=== PATIENT | male | born 1950 | race Caucasian/White ===

== ENCOUNTER → 2016-10-03 | Outpatient (CLI) | payer OTHER, MEDICARE ==
--- NOTE | 2016-12-23 10:23 | BTN ---
SERVICE DATE: PATIENT #: [id number] #: NOT DICTATED IDENTIFICATION: Madan is a 66-year-old male, who is here for followup. I last saw him 3 months ago. CURRENT MEDICATIONS: Fluoxetine 40 mg a day, clonazepam 0.5 to 1 mg at bedtime. He also takes Lyrica 150 mg b.i.d. ALLERGIES: He has allergies to morphine. CHIEF COMPLAINT: "I think I am having a little bit more going on in my brain." HISTORY OF PRESENT ILLNESS: Three months ago when I saw Madan, he was doing pretty well on the fluoxetine. He does have obsessive-compulsive disorder and he states when he gets on a loop in his brain, he cannot seem to get off and he said that was working pretty well. However, more recently, he has had more trouble with not being able to get off the loop. Other than that his mood is pretty good. His PHQ-9 score is 5. TANYA-7 score is 4. He is sleeping okay. 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 No suicidal or homicidal ideation. He does have several medical problems, so a lot of cardiac problems in his life and he has done well recently with gaining some weight and getting a little bit healthier. REVIEW OF SYSTEMS: He has significant cardiac problems. He has had a myocardial infarction. He has elevated lipids, hypertension. He also had an episode of, I believe it was a major infection he had several years ago that caused him to lose part of his feet. PHYSICAL EXAMINATION: VITAL SIGNS: Blood pressure is a little elevated today 157/91, heart rate 51, respirations 16, temperature is 97.7, weight is 154 pounds, and that is up 10 pounds in the last 3 months. He says he is eating much better. Height is 70 inches. GENERAL APPEARANCE: Madan looks good today. He is well groomed. Appears his stated age. Gait and station are fairly steady with the use of a cane. Speech is clear and appropriate, coherent. Thought processes are logical and linear. I do not see any pressured speech or tangential speech. I do not see any delusions and he denies any hallucinations. Mood and affect, mood is a little bit anxious and his affect is pleasant. Insight and judgment are good. MENTAL STATUS EXAM: He is alert and oriented x3. Recent and remote memory appear intact. Attention span is good. Language good. Fund of knowledge, adequate for his developmental age. DIAGNOSES: Fostoria I: Obsessive-compulsive disorder, F42.9. Depression, F32.9. Fostoria II: No diagnosis. Fostoria III: He has some cardiac issues and that is his main medical issues. Fostoria IV: Current stressors. 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 Fostoria V: Current Global Assessment of Functioning score 69. TREATMENT PLAN: In reviewing his medications, he has ways that he can go up on the fluoxetine, so I am going to raise it up to 60 mg a day, possibly can even go up as high as 80 mg a day. We will take all the miles out of it that we can and then when there is no miles left in it, we will go to something different, but so far he has gotten some good benefit from the Prozac and will continue on with it until we have used it up. I am going to see him back in about another three months. /[id number]
== END ==
LOC: MW.CHFP 08:15
PROVIDERS: ATTEND Student in an Organized Health Care Education/Training Program
DX: D64.9 Anemia, unspecified (principal); I10 Essential (primary) hypertension
CPT/HCPCS: 36415; 80053; 80061; 85025

== ENCOUNTER 2017-01-29 14:06 | Emergency (ER) | payer OTHER, MEDICARE ==
[2017-01-29] MEDS ORDERED: Lidocaine 1% 20 ML MDV INJECT ONE (14:46)
[2017-01-29] MEDS ORDERED: Bacitracin Oint 1 GM U/D Packet TOP ONE (15:22)
[2017-01-29] MEDS ORDERED: Diphtheria,Pertussis(Acell),Tetanus Vaccine 0.5 ML Syringe IM ONE (15:24)
--- NOTE | 2017-01-29 15:29 | EDM.PDOC ---
ED HPI GENERAL MEDICAL PROBLEM - General Chief Complaint: Laceration Stated Complaint: FELL Time Seen by Provider: 01/29/17 14:43 Source of Information: Reports: Patient History Limitations: Reports: No Limitations - History of Present Illness INITIAL COMMENTS - FREE TEXT/NARRATIVE: HISTORY AND PHYSICAL: []66-year-old male presents with a laceration to the left eyebrow History of Present Illness: []Patient turn had tripped over his dog striking his head on the floor no loss of consciousness As not remember when his last tetanus injection was given Review of Systems: As per history of present illness and below otherwise all systems reviewed and negative. Past medical history: As per history of present illness and as reviewed below otherwise noncontributory. Surgical history: As per history of present illness and as reviewed below otherwise noncontributory. Social history: No reported history of drug or alcohol abuse. Family history: As per history of present illness and as reviewed below otherwise noncontributory. Physical exam: Alert and oriented, answering questions appropriately in full sentences. HEENT: Atraumatic, normocehpalic, pupils reactive, negative for conjunctival pallor or scleral icterus, mucous membranes moist, throat clear, neck supple, nontender, trachea midline. Lungs: Clear to auscultation, breath sounds equal bilaterally, chest non tender. Heart: S1S2, regular, negative for clicks, rubs, or JVD. Abdomen: Soft, nondistended, nontender. Negative for masses or hepatossplenmegaly. Negative for costovertebral tenderness. Pelvis: Stable nontender. Genitourinary: Deferred. Rectal: Deferred Extremities: Atraumatic, negative for cords or calf pain. Neurovascular unremarkable. Neuro: Awake, alert, oriented. Cranial nerves II through XII unremarkable. Cerebellum unremarkable. Motor and sensory unremarkable throughout. Exam nonfocal. Discussed the repair with the patient and his , patient tolerated all procedures well Diagnostics: [] Therapeutics: [Sutures placed] Impression: [Laceration with repair] Plan: [Home Sutures out in 5-7 days] Definitive disposition and diagnosis as appropriate pending reevaluation and review of above. Onset: Today, Sudden Duration: Minutes: Location: Reports: Face head Pain Score (Numeric/FACES): 6 - Related Data Allergies Allergy/AdvReac Type Severity Reaction Status Date / Time morphine Allergy Other Verified 01/29/17 14:41 Home Meds: Home Meds Ascorbic Acid 500 mg PO DAILY@1730 05/02/16 [History] Aspirin 81 mg PO DAILY 05/02/16 [History] Baclofen [Lioresal] 10 mg PO BID 05/02/16 [History] Citalopram Hydrobromide [Citalopram HBr] 20 mg PO DAILY 05/02/16 [History] Diltiazem [Cardizem CD] 120 mg PO DAILY 05/02/16 [History] Hydrocodone/Acetaminophen [Hydrocodon-Acetaminophn 10-325] 1 tab PO DAILY PRN [History] Ketamine HCl in 0.9 % NaCl [Ketamine 20 mg/2 ml-0.9% NaCl] 1 spray CASTRO TID 05/02 [History] Ketamine [Ketalar] 1 applic TOP ASDIRECTED PRN 05/02/16 [History] Levomefolate/B6/B12/Algal Oil [Metanx Capsule] 1 cap PO BID 05/02/16 [History] Lisinopril [Lisinopril] 10 mg PO DAILY 05/02/16 [History] Magnesium Oxide [Magnesium] 400 mg PO QPM 05/02/16 [History] Melatonin 6 - 9 mg PO BEDTIME 05/02/16 [History] Pregabalin [Lyrica] 150 mg PO BID 05/02/16 [History] Tolterodine Tartrate [Detrol LA] 4 mg PO DAILY 05/02/16 [History] Vitamin E 400 mg PO DAILY@1730 05/02/16 [History] clonazePAM [Clonazepam] 1 mg PO QPM 05/02/16 [History] levETIRAcetam [Levetiracetam] 1,000 mg PO BEDTIME PRN 05/02/16 [History] Past Medical History HEENT History: Reports: None Cardiovascular History: Reports: Hypertension Other Cardiovascular History: pericarditis Respiratory History: Reports: Intubation, Previous Gastrointestinal History: Reports: None Genitourinary History: Reports: None Musculoskeletal History: Reports: Other (See Below) Other Musculoskeletal History: shoulder injections Neurological History: Reports: Neuropathy, Peripheral Psychiatric History: Reports: Anxiety, Depression Endocrine/Metabolic History: Reports: None Hematologic History: Reports: None Immunologic History: Reports: None Oncologic (Cancer) History: Reports: None Dermatologic History: Reports: None - Infectious Disease History Infectious Disease History: Reports: Chicken Pox, Shingles - Past Surgical History Head Surgeries/Procedures: Reports: None Respiratory Surgical History: Reports: Other (See Below) Other Respiratory Surgeries/Procedures: previous chest tube Social & Family History - Family History Family Medical History: Noncontributory - Tobacco Use Smoking Status *Q: Current Every Day Smoker Years of Tobacco use: 50 Packs/Tins Daily: 0.8 - Caffeine Use Caffeine Use: Reports: Coffee - Alcohol Use Days Per Week of Alcohol Use: 7 Number of Drinks Per Day: 2 Total Drinks Per Week: 14 - Recreational Drug Use Recreational Drug Use: No ED ROS GENERAL - Review of Systems Review Of Systems: ROS reveals no pertinent complaints other than HPI. ED EXAM, SKIN/RASH Exam: See Below (See dictation) ED SKIN PROCEDURES - Laceration/Wound Repair Left Medial Brow Lac/Wound length In cm: 2.5 Appearance: Subcutaneous, Clean Distal NVT: Neuro & Vascular Intact, No Tendon Injury Anesthetic Type: Local Local Anesthesia - Lidocaine (Xylocaine): 1% Plain Local Anesthetic Volume: 5cc Skin Prep: Saline Exploration/Debridement/Repair: Wound Explored, in a Bloodless Field, Explored to Base Closed with: Sutures Suture Size: 4-0 # of Sutures: 6 Suture Type: Nylon, Interrupted, Simple Suture Size: 4-0 # of Sutures: 2 Repaired with: Chromic Drain Placement: No Sterile Dressing Applied: Nurse Tetanus Status Addressed: Yes Complications: No Course - Vital Signs Last Recorded V/S: Last Vital Signs Temp 36.4 C 01/29/17 14:41 Pulse 56 L 01/29/17 14:41 Resp 18 01/29/17 14:41 BP 127/80 01/29/17 14:41 Pulse Ox 95 01/29/17 14:41 - Orders/Labs/Meds Meds: Medications Discontinued Medications Generic Name Dose Route Start Last Admin Trade Name Marianoq PRN Reason Stop Dose Admin Bacitracin 1 dose 01/29/17 15:22 Bacitracin Oint 1 Gm TOP 01/29/17 15:23 ONETIME ONE Lidocaine HCl 20 ml 01/29/17 14:46 Xylocaine 1% INJECT 01/29/17 14:47 ONETIME ONE Departure - Departure Time of Disposition: 15:31 Disposition: Home, Self-Care 01 Condition: Good Clinical Impression: Laceration - Discharge Information Instructions: Stitches, Richar, or Adhesive Wound Closure, [id number] Forms: ED Department Discharge Additional Instructions: The following information is given to patients seen in the emergency department who are being discharged to home. This information is to outline your options for follow-up care. We provide all patients seen in our emergency department with a follow-up referral. The need for follow-up, as well as the timing and circumstances, are variable depending upon the specifics of your emergency department visit. If you don't have a primary care physician on staff, we will provide you with a referral. We always advise you to contact your personal physician following an emergency department visit to inform them of the circumstance of the visit and for follow-up with them and/or the need for any referrals to a consulting specialist. The emergency department will also refer you to a specialist when appropriate. This referral assures that you have the opportunity for followup care with a specialist. All of these measure are taken in an effort to provide you with optimal care, which includes your followup. Under all circumstances we always encourage you to contact your private physician who remains a resource for coordinating your care. When calling for followup care, please make the office aware that this follow-up is from your recent emergency room visit. If for any reason you are refused follow-up, please contact the [facility] emergency department at and asked to speak to the emergency department charge nurse. Sutures to remove removed in 5 days Of infection return immediately for reevaluation
[2017-01-29 18:55] VITALS: BP 124/79
== END 2017-01-29 16:00 | disposition home or self-care (01) ==
LOC: MW.ED 14:06
DX: S01.112A Laceration without foreign body of left eyelid and periocular area, initial encounter (principal); F17.210 Nicotine dependence, cigarettes, uncomplicated; I10 Essential (primary) hypertension; F41.9 Anxiety disorder, unspecified; F32.9 Major depressive disorder, single episode, unspecified; Z23 Encounter for immunization; Z79.82 Long term (current) use of aspirin; Z79.899 Other long term (current) drug therapy; Z88.5 Allergy status to narcotic agent; W01.198A Fall on same level from slipping, tripping and stumbling with subsequent striking against other object, initial encounter
CPT/HCPCS: 12011; 90471; 90715; 99282; 99282-25

== ENCOUNTER 2017-04-25 20:25 | Observation (INO) | payer OTHER, MEDICARE ==
[2017-04-25] MEDS ORDERED: Sodium Chloride 0.9% 10 ML Syringe FLUSH PRN (20:33)
[2017-04-25] MEDS ORDERED: Sodium Chloride 0.9% 2.5 ML Syringe FLUSH PRN (20:33)
[2017-04-25] MEDS ORDERED: Aspirin 81 MG Tab.Chew PO ONE (20:33)
[2017-04-25] MEDS ORDERED: Ketorolac 30 MG/ML SDV IVPUSH ONE (20:33)
--- NOTE | 2017-04-25 20:35 | EDM.PDOC ---
ED HPI GENERAL MEDICAL PROBLEM - General Chief Complaint: Chest Pain Stated Complaint: PT HAS CHEST PAINS Time Seen by Provider: 04/25/17 20:26 - History of Present Illness INITIAL COMMENTS - FREE TEXT/NARRATIVE: HISTORY AND PHYSICAL: History of present illness: The patient is a 66-year-old male with a history of a non-STEMI VT with a negative angiogram done approximately 1 year ago, hypertension and who follows in our clinic with Dr. Danyel Escalera and presents tonight with left-sided chest pain that occurs when he tries to sit up. According to the patient that approximate 6 PM he got up very quickly felt lightheaded and had a brief syncopal event. He said he was not unconscious for long and had no trauma and has no complaints of pain as a result of this event. He said that he laid on the floor for some time because he felt lightheaded and then eventually got up and when he did so he felt the left-sided chest discomfort. He says he doesn't feel nauseated has had no vomiting no upper respiratory tract infections no fevers no chills no leg pain or swelling. He says that when he lays flat he feels improved and doesn't have the chest pain. Says if he takes a deep breath he does feel some discomfort but it is not like the sharp pain he experiences when he sits up. He has no palpitations with this in the pain does not radiate to his jaw or arm. The patient does not take any medication when he gets chest pain and his last angiogram was approximately 1 year ago in [place] and it was performed for a non-STEMI VT and there were no blockages. He was told that his "right ventricle has a low EF". Patient states that over the last few days he has not had much of an appetite and has not been eating much. He says he hydrates but probably not as well as he should. His does tell us that he did have some alcohol prior to coming here. Review of systems: As per history of present illness and below otherwise all systems reviewed and negative. Past medical history: As per history of present illness and as reviewed below otherwise noncontributory. Surgical history: As per history of present illness and as reviewed below otherwise noncontributory. Social history: No reported history of drug or alcohol abuse. Family history: As per history of present illness and as reviewed below otherwise noncontributory. Physical exam: Gen.: Well-developed well-nourished male who is nontoxic and vital signs of been reviewed by me. He moves easily in the ED and complains of no chest pain at rest laying flat. HEENT: Atraumatic, normocephalic, pupils reactive, negative for conjunctival pallor or scleral icterus, mucous membranes tacky, throat clear, neck supple, nontender, trachea midline. Lungs: Clear to auscultation, breath sounds equal bilaterally, chest nontender. Heart: S1S2, regular rate and rhythm no overt murmurs appreciated Abdomen: Soft, nondistended, nontender. Negative for masses or hepatosplenomegaly. Negative for costovertebral tenderness. Pelvis: Stable nontender. Genitourinary: Deferred. Rectal: Deferred. Extremities: Atraumatic, negative for cords or calf pain. Neurovascular unremarkable. No pedal edema. Full range of motion without defects or deficits Neuro: Awake, alert, oriented. Cranial nerves II through XII unremarkable. Cerebellum unremarkable. Motor and sensory unremarkable throughout. Exam nonfocal. Back there are no midline step-offs tenderness defects of the cervical thoracic or lumbar spine no soft tissue injuries are seen and no tenderness in the posterior ribs or posterior pelvis Diagnostics: EKG chest x-ray CBC CMP d-dimer INR troponin lipase alcohol level CTA of the chest Therapeutics: IV O2 monitor aspirin Toradol IV fluids Please note that while the patient was in the ED his heart rate runs in the high 40s to 50s and his blood pressures 90s over 50s to 60s. The patient is on a beta francine as well as lisinopril and according to the he has had his medication adjusted in the past due to high blood pressure. According to and patient he has had events before where he gets up too fast and he feels lightheaded and has had brief episodes of loss of consciousness but he has never had this associated pain. At this point the patient is sleeping comfortably and I will not do orthostatic vitals but will discuss that with Dr. hidalgo. Patient and are agreeable to observation admission. Due to his blood pressure and pulse I will also give him IV fluids. I discussed this case with our hospitalist at 2310 and he agrees with observation admission Impression: Syncopal event, atypical left episodic chest pain, recent alcohol use stable Definitive disposition and diagnosis as appropriate pending reevaluation and review of above. chest pain Pain Score (Numeric/FACES): 7 - Related Data Allergies Allergy/AdvReac Type Severity Reaction Status Date / Time morphine Allergy Other Verified 04/25/17 20:38 Home Meds: Home Meds Ascorbic Acid 500 mg PO DAILY@1730 05/02/16 [History] Aspirin 81 mg PO DAILY 05/02/16 [History] Baclofen [Lioresal] 10 mg PO BID 05/02/16 [History] Citalopram Hydrobromide [Citalopram HBr] 20 mg PO DAILY 05/02/16 [History] Diltiazem [Cardizem CD] 120 mg PO DAILY 05/02/16 [History] Hydrocodone/Acetaminophen [Hydrocodon-Acetaminophn 10-325] 1 tab PO DAILY PRN [History] Ketamine HCl in 0.9 % NaCl [Ketamine 20 mg/2 ml-0.9% NaCl] 1 spray CASTRO TID 05/02 [History] Ketamine [Ketalar] 1 applic TOP ASDIRECTED PRN 05/02/16 [History] Levomefolate/B6/B12/Algal Oil [Metanx Capsule] 1 cap PO BID 05/02/16 [History] Lisinopril [Lisinopril] 10 mg PO DAILY 05/02/16 [History] Magnesium Oxide [Magnesium] 400 mg PO QPM 05/02/16 [History] Melatonin 6 - 9 mg PO BEDTIME 05/02/16 [History] Pregabalin [Lyrica] 150 mg PO BID 05/02/16 [History] Tolterodine Tartrate [Detrol LA] 4 mg PO DAILY 05/02/16 [History] Vitamin E 400 mg PO DAILY@1730 05/02/16 [History] clonazePAM [Clonazepam] 1 mg PO QPM 05/02/16 [History] levETIRAcetam [Levetiracetam] 1,000 mg PO BEDTIME PRN 05/02/16 [History] FLUoxetine HCl [Fluoxetine] 40 mg PO TID 04/25/17 [History] Glucosam/Farhad-Col.Cplx/D3/C/Mn [Mqczcokmtbj-Lltmztjrdwq-E7] 1 tab PO DAILY 04/25 [History] Metoprolol Tartrate 1 tab PO BID 04/25/17 [History] Nicotine [Habitrol] 21 mg TRDERM DAILY 04/25/17 [History] Vitamin B Complex [B Complex] 1 tab PO DAILY 04/25/17 [History] Past Medical History HEENT History: Reports: None Cardiovascular History: Reports: Hypertension Other Cardiovascular History: pericarditis Respiratory History: Reports: Intubation, Previous Gastrointestinal History: Reports: None Genitourinary History: Reports: None Musculoskeletal History: Reports: Other (See Below) Other Musculoskeletal History: shoulder injections Neurological History: Reports: Neuropathy, Peripheral Psychiatric History: Reports: Anxiety, Depression Endocrine/Metabolic History: Reports: None Hematologic History: Reports: None Immunologic History: Reports: None Oncologic (Cancer) History: Reports: None Dermatologic History: Reports: None - Infectious Disease History Infectious Disease History: Reports: Chicken Pox, Shingles - Past Surgical History Head Surgeries/Procedures: Reports: None Respiratory Surgical History: Reports: Other (See Below) Other Respiratory Surgeries/Procedures: previous chest tube Social & Family History - Family History Family Medical History: Noncontributory - Tobacco Use Smoking Status *Q: Current Every Day Smoker Years of Tobacco use: 50 Packs/Tins Daily: 0.8 - Caffeine Use Caffeine Use: Reports: Coffee - Alcohol Use Days Per Week of Alcohol Use: 7 Number of Drinks Per Day: 2 Total Drinks Per Week: 14 - Recreational Drug Use Recreational Drug Use: No ED ROS GENERAL - Review of Systems Review Of Systems: ROS reveals no pertinent complaints other than HPI. ED EXAM, GENERAL - Physical Exam Exam: See Below (See dictation) Course - Vital Signs Last Recorded V/S: Last Vital Signs Temp 36.1 C 04/25/17 20:25 Pulse 48 L 04/25/17 23:00 Resp 12 04/25/17 23:00 BP 90/55 L 04/25/17 23:00 Pulse Ox 97 04/25/17 23:00 - Orders/Labs/Meds Orders: Active Orders 24 hr Category Date Time Status Cardiac Monitoring [RC] . DIRECTED Care 04/25/17 20:32 Active EKG Documentation Completion [RC] STAT Care 04/25/17 20:32 Active Oxygen Therapy, ED [RC] ASDIRECTED Care 04/25/17 20:32 Active Pulse Oximetry [RC] ASDIRECTED Care 04/25/17 20:32 Active Ang Chest [CT] Stat Exams 04/25/17 21:06 Taken Chest 1V Frontal [CR] Stat Exams 04/25/17 20:33 Taken Sodium Chloride 0.9% [Normal Saline] 1,000 ml Med 04/25/17 23:02 Active IV STAT Sodium Chloride 0.9% [Saline Flush] Med 04/25/17 20:33 Active 10 ml FLUSH ASDIRECTED PRN Sodium Chloride 0.9% [Saline Flush] Med 04/25/17 20:33 Active 2.5 ml FLUSH ASDIRECTED PRN Saline Lock Insert [OM.PC] Stat Oth 04/25/17 20:32 Ordered Medication Orders Sodium Chloride (Normal Saline) 1,000 mls @ 999 mls/hr IV STAT ONE Stop: 04/26/17 00:02 Last Admin: 04/25/17 23:06 Dose: 999 mls/hr Sodium Chloride (Saline Flush) 10 ml FLUSH ASDIRECTED PRN PRN Reason: Keep Vein Open Last Admin: 04/25/17 20:59 Dose: 10 ml Sodium Chloride (Saline Flush) 2.5 ml FLUSH ASDIRECTED PRN PRN Reason: Keep Vein Open Last Admin: 04/25/17 20:58 Dose: 2.5 ml Labs: Laboratory Tests 04/25/17 04/25/17 04/25/17 Range/Units 20:25 20:25 20:25 WBC 9.41 (4.0-11.0) K/uL RBC 4.34 L (4.50-5.90) M/uL Hgb 13.9 (13.0-17.0) g/dL Hct 40.9 (38.0-50.0) % MCV 94.2 (80.0-98.0) fL MCH 32.0 (27.0-32.0) pg MCHC 34.0 (31.0-37.0) g/dL RDW Std Deviation 53.0 (28.0-62.0) fl RDW Coeff of Mao 16 H (11.0-15.0) % Plt Count 311 (150-400) K/uL MPV 10.20 (7.40-12.00) fL Neut % (Auto) 42.7 L (48.0-80.0) % Lymph % (Auto) 42.6 H (16.0-40.0) % Piatt % (Auto) 8.0 (0.0-15.0) % Eos % (Auto) 5.7 (0.0-7.0) % Baso % (Auto) 1.0 (0.0-1.5) % Neut # (Auto) 4.0 (1.4-5.7) K/uL Lymph # (Auto) 4.0 H (0.6-2.4) K/uL Piatt # (Auto) 0.8 (0.0-0.8) K/uL Eos # (Auto) 0.5 (0.0-0.7) K/uL Baso # (Auto) 0.1 (0.0-0.1) K/uL Nucleated RBC % 0.0 /100WBC Nucleated RBCs # 0 K/uL INR 0.97 (0.86-1.11) D-Dimer, Quantitative 1.14 H (0.0-0.52) mg/LFEU Sodium 140 (136-146) mmol/L Potassium 4.2 (3.5-5.1) mmol/L Chloride 109 (98-110) mmol/L Carbon Dioxide 20 L (21-31) mmol/L BUN 23 (6.0-23.0) mg/dL Creatinine 1.2 (0.6-1.5) mg/dL Est Cr Clr Drug Dosing 64.21 mL/min Estimated GFR (MDRD) > 60.0 ml/min Glucose 88 (60-110) mg/dL Calcium 9.0 (8.8-10.8) mg/dL Total Bilirubin 0.3 (0.1-1.5) mg/dL AST 35 (5-40) IU/L ALT 33 (8-54) IU/L Alkaline Phosphatase 121 (40-150) Troponin I (0.0-0.29) NG/ML Total Protein 6.8 (6.0-8.0) g/dL Albumin 3.5 (3.4-4.8) g/dL Globulin 3.3 (2.0-3.5) g/dL Albumin/Globulin Ratio 1.1 L (1.3-2.8) Lipase 49 (7-80) U/L Ethyl Alcohol 91.8 mg/dL 04/25/17 Range/Units 20:25 WBC (4.0-11.0) K/uL RBC (4.50-5.90) M/uL Hgb (13.0-17.0) g/dL Hct (38.0-50.0) % MCV (80.0-98.0) fL MCH (27.0-32.0) pg MCHC (31.0-37.0) g/dL RDW Std Deviation (28.0-62.0) fl RDW Coeff of Mao (11.0-15.0) % Plt Count (150-400) K/uL MPV (7.40-12.00) fL Neut % (Auto) (48.0-80.0) % Lymph % (Auto) (16.0-40.0) % Piatt % (Auto) (0.0-15.0) % Eos % (Auto) (0.0-7.0) % Baso % (Auto) (0.0-1.5) % Neut # (Auto) (1.4-5.7) K/uL Lymph # (Auto) (0.6-2.4) K/uL Piatt # (Auto) (0.0-0.8) K/uL Eos # (Auto) (0.0-0.7) K/uL Baso # (Auto) (0.0-0.1) K/uL Nucleated RBC % /100WBC Nucleated RBCs # K/uL INR (0.86-1.11) D-Dimer, Quantitative (0.0-0.52) mg/LFEU Sodium (136-146) mmol/L Potassium (3.5-5.1) mmol/L Chloride (98-110) mmol/L Carbon Dioxide (21-31) mmol/L BUN (6.0-23.0) mg/dL Creatinine (0.6-1.5) mg/dL Est Cr Clr Drug Dosing mL/min Estimated GFR (MDRD) ml/min Glucose (60-110) mg/dL Calcium (8.8-10.8) mg/dL Total Bilirubin (0.1-1.5) mg/dL AST (5-40) IU/L ALT (8-54) IU/L Alkaline Phosphatase (40-150) Troponin I < 0.10 (0.0-0.29) NG/ML Total Protein (6.0-8.0) g/dL Albumin (3.4-4.8) g/dL Globulin (2.0-3.5) g/dL Albumin/Globulin Ratio (1.3-2.8) Lipase (7-80) U/L Ethyl Alcohol mg/dL Meds: Medications Generic Name Dose Route Start Last Admin Trade Name Freq PRN Reason Stop Dose Admin Sodium Chloride 1,000 mls @ 999 mls/hr 04/25/17 23:02 04/25/17 23:06 Normal Saline IV 04/26/17 00:02 999 mls/hr STAT ONE Administration Sodium Chloride 10 ml 04/25/17 20:33 04/25/17 20:59 Saline Flush FLUSH 10 ml ASDIRECTED PRN Administration Keep Vein Open Sodium Chloride 2.5 ml 04/25/17 20:33 04/25/17 20:58 Saline Flush FLUSH 2.5 ml ASDIRECTED PRN Administration Keep Vein Open Discontinued Medications Generic Name Dose Route Start Last Admin Trade Name Marianoq PRN Reason Stop Dose Admin Aspirin 324 mg 04/25/17 20:33 04/25/17 20:57 Aspirin PO 04/25/17 20:34 324 mg ONETIME ONE Administration Iopamidol 50 ml 04/25/17 21:45 04/25/17 21:46 Isovue Multipack-370 (76%) IVPUSH 04/25/17 21:46 50 ml ONETIME STA Administration Ketorolac Tromethamine 30 mg 04/25/17 20:33 04/25/17 20:58 Toradol IVPUSH 04/25/17 20:34 30 mg ONETIME ONE Administration Departure - Departure Time of Disposition: 23:13 Disposition: Refer to Observation Condition: Good Clinical Impression: Atypical chest pain Syncope Qualifiers: Syncope type: unspecified Qualified Code(s): R55 - Syncope and collapse - Discharge Information Referrals: PCP,None [Primary Care Provider] - Forms: ED Department Discharge - My Orders Last 24 Hours: My Active Orders 04/25/17 20:32 Cardiac Monitoring [RC] . DIRECTED EKG Documentation Completion [RC] STAT Oxygen Therapy, ED [RC] ASDIRECTED Pulse Oximetry [RC] ASDIRECTED Saline Lock Insert [OM.PC] Stat 04/25/17 20:33 Chest 1V Frontal [CR] Stat Sodium Chloride 0.9% [Saline Flush] 10 ml FLUSH ASDIRECTED PRN Sodium Chloride 0.9% [Saline Flush] 2.5 ml FLUSH ASDIRECTED PRN 04/25/17 21:06 Ang Chest [CT] Stat 04/25/17 23:02 Sodium Chloride 0.9% [Normal Saline] 1,000 ml IV STAT - Assessment/Plan Last 24 Hours: My Active Orders 04/25/17 20:32 Cardiac Monitoring [RC] . DIRECTED EKG Documentation Completion [RC] STAT Oxygen Therapy, ED [RC] ASDIRECTED Pulse Oximetry [RC] ASDIRECTED Saline Lock Insert [OM.PC] Stat 04/25/17 20:33 Chest 1V Frontal [CR] Stat Sodium Chloride 0.9% [Saline Flush] 10 ml FLUSH ASDIRECTED PRN Sodium Chloride 0.9% [Saline Flush] 2.5 ml FLUSH ASDIRECTED PRN 04/25/17 21:06 Ang Chest [CT] Stat 04/25/17 23:02 Sodium Chloride 0.9% [Normal Saline] 1,000 ml IV STAT
[2017-04-25 20:58] LABS: CHLORIDE,CL 109 mmol/L (98-110); SODIUM,NA 140 mmol/L (136-146)
[2017-04-25] MEDS ORDERED: Iopamidol 755 MG/ML 500 ML Multipack Bottle IVPUSH STA (21:45)
[2017-04-25] MEDS ORDERED: Sodium Chloride 0.9% 1,000 ML IV ONE (23:02)
[2017-04-25] MEDS ORDERED: Ketorolac 15 MG/ML SDV IVPUSH PRN (23:32)
[2017-04-25] MEDS ORDERED: Nitroglycerin 0.4 MG Tab.SL SL PRN (23:32)
[2017-04-26] MEDS ORDERED: Metoprolol Tartrate 50 MG Tab PO SCH (00:15)
[2017-04-26 08:23] LABS: CHLORIDE,CL 112 mmol/L (98-110); SODIUM,NA 140 mmol/L (136-146)
[2017-04-26] MEDS ORDERED: FLU Vacc QS 2017-18 (36mos UP)/PF 60 MCG/0.5 ML Syringe IM ONE (09:00)
--- NOTE | 2017-04-26 10:06 | PCM.HP ---
<Baluch,Juancho - Last Filed: 04/26/17 13:35> H&P History of Present Illness - General Date of Service: 04/26/17 Admit Problem/Dx: Admission Diagnosis/Problem Admission Diagnosis/Problem Atypical chest pain - History of Present Illness Initial Comments - Free Text/Narative: 66 year old male with history of alcohol use disorder, serotonin syndrome and NSTEMI one year ago admitted for syncope. He was sitting at home and went to stand up and had episode of syncope. He came to and stated he had stabbing that was present just prior to syncope and after he stood up. Pain was continuous. His brought him to ED. In the ED he was found to have elevated D-Dimer. CTA was done and was negative for any PE. His EKG and Troponin were negative. He had BAL of .09. Paitnet states he is still having pain with breathing. chest pain Pain Score (Numeric/FACES): 5 - Related Data Allergies/Adverse Reactions: Allergies Allergy/AdvReac Type Severity Reaction Status Date / Time morphine Allergy Other Verified 04/25/17 20:38 Home Medications: Home Meds Ascorbic Acid 500 mg PO DAILY@1730 05/02/16 [History] Aspirin 81 mg PO DAILY 05/02/16 [History] Baclofen [Lioresal] 10 mg PO BID 05/02/16 [History] Lisinopril [Lisinopril] 10 mg PO DAILY 05/02/16 [History] Magnesium Oxide [Magnesium] 400 mg PO DAILY 05/02/16 [History] Melatonin 6 - 9 mg PO BEDTIME 05/02/16 [History] Pregabalin [Lyrica] 150 mg PO BID 05/02/16 [History] Tolterodine Tartrate [Detrol LA] 4 mg PO DAILY 05/02/16 [History] Vitamin E 400 mg PO DAILY@1730 05/02/16 [History] clonazePAM [Clonazepam] 1 mg PO QPM 05/02/16 [History] levETIRAcetam [Levetiracetam] 1,000 mg PO BEDTIME PRN 05/02/16 [History] FLUoxetine HCl [Fluoxetine] 40 mg PO TID 04/25/17 [History] Glucosam/Farhad-Col.Cplx/D3/C/Mn [Ydiwazvevhj-Wisdnipepgj-T6] 1 tab PO DAILY 04/25 [History] Metoprolol Tartrate 50 mg PO BID 04/25/17 [History] Nicotine [Habitrol] 21 mg TRDERM DAILY 04/25/17 [History] Vitamin B Complex [B Complex] 1 tab PO DAILY 04/25/17 [History] Mirtazapine 30 mg PO BEDTIME 04/26/17 [History] atorvaSTATin [Lipitor] 10 mg PO BEDTIME 04/26/17 [History] Past Medical History HEENT History: Reports: None Cardiovascular History: Reports: Hypertension Other Cardiovascular History: pericarditis Respiratory History: Reports: Intubation, Previous Gastrointestinal History: Reports: None Genitourinary History: Reports: None Musculoskeletal History: Reports: Other (See Below) Other Musculoskeletal History: shoulder injections Neurological History: Reports: Neuropathy, Peripheral Psychiatric History: Reports: Anxiety, Depression Endocrine/Metabolic History: Reports: None Hematologic History: Reports: None Immunologic History: Reports: None Oncologic (Cancer) History: Reports: None Dermatologic History: Reports: None - Infectious Disease History Infectious Disease History: Reports: Chicken Pox, Shingles Other Infectious Disease History: meningococal septicemia - Past Surgical History Head Surgeries/Procedures: Reports: None Respiratory Surgical History: Reports: Other (See Below) Other Respiratory Surgeries/Procedures: previous chest tube Social & Family History - Family History Family Medical History: Noncontributory - Tobacco Use Smoking Status *Q: Current Every Day Smoker Years of Tobacco use: 30 Packs/Tins Daily: 1 - Caffeine Use Caffeine Use: Reports: Coffee - Alcohol Use Days Per Week of Alcohol Use: 7 Number of Drinks Per Day: 5 Total Drinks Per Week: 35 Date of Last Drink: 04/25/17 - Recreational Drug Use Recreational Drug Use: No H&P Review of Systems - Review of Systems: Review Of Systems: See Below General: Reports: No Symptoms HEENT: Reports: No Symptoms Pulmonary: Reports: Pleuritic Chest Pain Cardiovascular: Reports: Chest Pain Gastrointestinal: Reports: No Symptoms Genitourinary: Reports: No Symptoms Musculoskeletal: Reports: No Symptoms Skin: Reports: No Symptoms Psychiatric: Reports: No Symptoms Neurological: Reports: No Symptoms Hematologic/Lymphatic: Reports: No Symptoms Immunologic: Reports: No Symptoms Exam - Exam Exam: See Below - Vital Signs Vital Signs: Last Vital Signs Temp 36.8 C 04/26/17 08:00 Pulse 50 L 04/26/17 08:00 Resp 17 10/14/17 08:00 BP 120/66 04/26/17 08:00 Pulse Ox 99 04/26/17 08:00 Weight: 73.028 kg - Exam General: Alert, Oriented, Cooperative, Mild Distress HEENT: Conjunctiva Clear Neck: Supple, Trachea Midline Lungs: Clear to Auscultation, Normal Respiratory Effort Cardiovascular: Regular Rhythm, Bradycardia GI/Abdominal Exam: Soft, Non-Tender Extremities: Non-Tender, No Pedal Edema Peripheral Pulses: 2+: Radial (L), Radial (R) Skin: Warm, Dry, Intact Neuro Extensive - Mental Status: Alert, Oriented x3 Psychiatric: Alert, Normal Affect, Normal Mood. No: Suicidal Ideation, Homicidal Ideation - Patient Data Lab Results Last 24 hrs: Laboratory Results - last 24 hr 04/26/17 04/26/17 Range/Units 07:50 07:50 Sodium 140 (136-146) mmol/L Potassium 4.9 (3.5-5.1) mmol/L Chloride 112 H (98-110) mmol/L Carbon Dioxide 20 L (21-31) mmol/L BUN 24 H (6.0-23.0) mg/dL Creatinine 1.1 (0.6-1.5) mg/dL Est Cr Clr Drug Dosing 70.05 mL/min Estimated GFR (MDRD) > 60.0 ml/min Glucose 60 (60-110) mg/dL Calcium 8.4 L (8.8-10.8) mg/dL Troponin I < 0.10 (0.0-0.29) NG/ML Triglycerides 66 (10-190) mg/dL Cholesterol 131 (131-240) mg/dL LDL Cholesterol, Calc 75 (60-180) mg/dL VLDL Cholesterol 13 (5-55) mg/dL HDL Cholesterol 43 (40-80) mg/dL Cholesterol/HDL Ratio 3.0 L (3.3-6.0) Result Diagrams: 04/25/17 20:25 04/26/17 07:50 *Q Meaningful Use (ADM) - VTE *Q VTE Criteria *Q: - Stroke *Q Stroke Criteria *Q: - AMI *Q AMI Criteria *Q: Problem List Initiated/Reviewed/Updated: Yes Orders Last 24hrs: Active Orders 24 hr Category Date Time Status Admission Status [Patient Status] [ADT] Stat ADT 04/25/17 23:14 Active CIWAA Assessment [RC] Q4H Care 04/26/17 09:51 Ordered EKG Documentation Completion [RC] AM Care 04/26/17 06:00 Active Telemetry Monitoring [Cardiac Monitoring] [RC] Q8H Care 04/25/17 23:22 Active Heart Healthy Diet [DIET] Diet 04/26/17 Breakfast Active TROPONIN I [CHEM] Routine Lab 04/26/17 13:50 Ordered TROPONIN I,POC [POC] Lab 04/26/17 02:25 Ordered Ketorolac [Toradol] Med 04/25/17 23:32 Active 30 mg IVPUSH Q8H PRN Nitroglycerin [Nitrostat] Med 04/25/17 23:32 Active 0.4 mg SL Q5M PRN Medication Orders Ketorolac Tromethamine (Toradol) 30 mg IVPUSH Q8H PRN PRN Reason: Pain Stop: 04/30/17 23:33 Last Admin: 04/26/17 09:46 Dose: 30 mg Nitroglycerin (Nitrostat) 0.4 mg SL Q5M PRN PRN Reason: Chest Pain Sodium Chloride (Saline Flush) 10 ml FLUSH ASDIRECTED PRN PRN Reason: Keep Vein Open Last Admin: 04/25/17 20:59 Dose: 10 ml Sodium Chloride (Saline Flush) 2.5 ml FLUSH ASDIRECTED PRN PRN Reason: Keep Vein Open Last Admin: 04/25/17 20:58 Dose: 2.5 ml Assessment/Plan Comment:: Assessment: 66 year old male with history of NSTEMI, Alcohol Use Disorder admitted for chest pain and syncope. ED workup revealed normal EKG, negative Troponin, elevated D-Dimer & BAL of 0.091. CTA was negative. chest pain: telemetry. troponin [id number] x3. Syncope: telemetry. alcohol use disorder: BAL 0.09 in ED. no current signs of acute intoxication or withdrawal. start ciwa protocol. <Salvador Temple - Last Filed: 04/26/17 14:17> H&P History of Present Illness - General Admit Problem/Dx: Admission Diagnosis/Problem Admission Diagnosis/Problem Atypical chest pain Exam - Vital Signs Vital Signs: Last Vital Signs Temp 36.8 C 04/26/17 08:00 Pulse 50 L 04/26/17 08:00 Resp 17 04/26/17 08:00 BP 120/66 04/26/17 08:00 Pulse Ox 99 04/26/17 08:00 - Patient Data Lab Results Last 24 hrs: Laboratory Results - last 24 hr 04/26/17 04/26/17 04/26/17 Range/Units 07:50 07:50 13:53 Sodium 140 (136-146) mmol/L Potassium 4.9 (3.5-5.1) mmol/L Chloride 112 H (98-110) mmol/L Carbon Dioxide 20 L (21-31) mmol/L BUN 24 H (6.0-23.0) mg/dL Creatinine 1.1 (0.6-1.5) mg/dL Est Cr Clr Drug Dosing 70.05 mL/min Estimated GFR (MDRD) > 60.0 ml/min Glucose 60 (60-110) mg/dL Calcium 8.4 L (8.8-10.8) mg/dL Troponin I < 0.10 < 0.10 (0.0-0.29) NG/ML Triglycerides 66 (10-190) mg/dL Cholesterol 131 (131-240) mg/dL LDL Cholesterol, Calc 75 (60-180) mg/dL VLDL Cholesterol 13 (5-55) mg/dL HDL Cholesterol 43 (40-80) mg/dL Cholesterol/HDL Ratio 3.0 L (3.3-6.0) Result Diagrams: 04/25/17 20:25 04/26/17 07:50 *Q Meaningful Use (ADM) - VTE *Q VTE Criteria *Q: - Stroke *Q Stroke Criteria *Q: - AMI *Q AMI Criteria *Q: Orders Last 24hrs: Active Orders 24 hr Category Date Time Status Admission Status [Patient Status] [ADT] Stat ADT 04/25/17 23:14 Active CIWAA Assessment [RC] Q4H Care 04/26/17 09:51 Active EKG Documentation Completion [RC] AM Care 04/26/17 06:00 Active Telemetry Monitoring [Cardiac Monitoring] [RC] Q8H Care 04/25/17 23:22 Active Heart Healthy Diet [DIET] Diet 04/26/17 Breakfast Active TROPONIN I,POC [POC] Lab 04/26/17 02:25 Ordered Ascorbic Acid [Vitamin C] Med 04/26/17 17:30 Active 500 mg PO DAILY@1730 Aspirin Med 04/26/17 11:15 Active 81 mg PO DAILY Baclofen [Lioresal] Med 04/26/17 11:15 Active 10 mg PO BID ClonazePAM [KlonoPIN] Med 04/26/17 18:00 Active 1 mg PO QPM FLUoxetine [PROzac] Med 04/26/17 14:00 Active 40 mg PO TID Ketorolac [Toradol] Med 04/25/17 23:32 Active 30 mg IVPUSH Q8H PRN Nitroglycerin [Nitrostat] Med 04/25/17 23:32 Active 0.4 mg SL Q5M PRN atorvaSTATin [Lipitor] Med 04/26/17 21:00 Active 10 mg PO BEDTIME Medication Orders Ascorbic Acid (Vitamin C) 500 mg PO DAILY@1730 [facility] Aspirin (Aspirin) 81 mg PO DAILY [facility] Last Admin: 04/26/17 11:48 Dose: 81 mg Atorvastatin Calcium (Lipitor) 10 mg PO BEDTIME SEAN Baclofen (Lioresal) 10 mg PO BID [facility] Last Admin: 04/26/17 11:48 Dose: 10 mg Clonazepam (Klonopin) 1 mg PO QPM [facility] Fluoxetine HCl (Prozac) 40 mg PO TID [facility] Last Admin: 04/26/17 13:13 Dose: 40 mg Ketorolac Tromethamine (Toradol) 30 mg IVPUSH Q8H PRN PRN Reason: Pain Stop: 04/30/17 23:33 Last Admin: 04/26/17 09:46 Dose: 30 mg Nitroglycerin (Nitrostat) 0.4 mg SL Q5M PRN PRN Reason: Chest Pain Sodium Chloride (Saline Flush) 10 ml FLUSH ASDIRECTED PRN PRN Reason: Keep Vein Open Last Admin: 04/25/17 20:59 Dose: 10 ml Sodium Chloride (Saline Flush) 2.5 ml FLUSH ASDIRECTED PRN PRN Reason: Keep Vein Open Last Admin: 04/25/17 20:58 Dose: 2.5 ml - Free Text/Narrative Note: I have interviewed and examined this patient. The most remarkable finding is intercostal muscle tenderness in the specific area where the patient states he has his pain. He also has had bradycardia and has history consistent with orthostatic hypotension-induced syncope. He reports he has fallen to the floor when he has fainted when he got up too quickly from lying on the couch. His recent cardiac cath, reported as clear, his unremarkable chest CT scan and his 2 negative troponins have been instructive that he does not have cardiac disease causing his symptoms at this time. If his third troponin is negative, will entertain discharge.
[2017-04-26] MEDS ORDERED: Aspirin 81 MG Tab.Chew PO SCH (11:15)
[2017-04-26] MEDS ORDERED: Baclofen 10 MG Tab PO SCH (11:15)
[2017-04-26 16:59] VITALS: BP 130/68
[2017-04-26] MEDS ORDERED: Ascorbic Acid 500 MG Tab PO SCH (17:30)
[2017-04-26] MEDS ORDERED: ClonazePAM 1 MG Tab PO SCH (18:00)
[2017-04-26] MEDS ORDERED: atorvaSTATin 10 MG Tab PO SCH (21:00)
[2017-04-27] MEDS ORDERED: [UNRECOGNIZED DRUG - OTHER] PO SCH (09:00)
--- NOTE | 2017-04-28 10:13 | CR ---
EXAM DATE: 04/25/17 PATIENT'S AGE: 66 Patient: ASHTYN FRY Facility: [place], [place] Site . Site : 1950 Study: XRay Chest [id number]/13/2017 9:06:42 PM Ordering Physician: Bonnie Parikh Final Report: INDICATION: chest pain TECHNIQUE: Chest 1 view COMPARISON: May 02, 2016 FINDINGS: Cardiovascular and mediastinum: Heart size and vasculature are normal in caliber and appearance. Mediastinum is within normal limits. Lungs and pleural space: Increased elevation of the left hemidiaphragm. No sign of pleural effusion. No pneumothorax. Bones and soft tissues: No significant findings. IMPRESSION: Increased elevation left hemidiaphragm. This may be related to volume loss of the left lower lobe. Consider repeat PA and lateral chest radiographs. Dictated by Edwin Salazar MD @ 04/25/2017 9:18:21 PM Dictated by: Edwin Salazar MD @ 04/25/2017 21:18:27 (Electronic Signature) Report Signed by Proxy. WEILL CORNELL MEDICAL CENTERKimberly
--- NOTE | 2017-04-28 10:14 | CT ---
EXAM DATE: 04/25/17 PATIENT'S AGE: 66 Patient: ASHTYN FRY Facility: [place], [place] : 1950 Study: CT Chest Angio [id number]/13/[id number] 9:50:35 PM Ordering Physician: BENOIT Final Report: INDICATION: Chest pain TECHNIQUE: CT chest with i.v. contrast using pulmonary angiographic technique. Coronal and sagittal reformats were obtained. COMPARISON: 05/02/2016 CONTRAST: 50 mL Isovue 370 FINDINGS: Cardiovascular: The pulmonary arteries are unremarkable in appearance with no evidence of acute pulmonary embolism. No sign of aneurysm or dissection in the thoracic aorta. Mediastinum: There is a 1.4 cm pre-carinal lymph node present with a fatty hilum , unchanged from prior examination. Lungs: Left basilar atelectasis and pleural-parenchymal scarring noted. Mild subpleural fibrosis is present bilaterally with a predominance in the right apex. The lung bases are partially excluded. Pleura and pericardium: Multiple small pleural nodules are seen in the left berna thorax. These are similar in appearance to prior examination and may be related to prior asbestos exposure or pneumonia Chest wall and axilla: No mass or adenopathy seen. Bones: Unremarkable for age. Upper abdomen: A small calcified nodule is present in the left upper quadrant of the abdomen which may be due to splenectomy. Moderate elevation of the left hemidiaphragm is noted which may be due to diaphragmatic weakness or paralysis. IMPRESSIONS: 1. No CT evidence of pulmonary emboli seen. Dictated by Randy Dodge MD @ 04/25/2017 10:39:49 PM Dictated by: Randy Dodge MD @ 04/25/2017 22:40:01 (Electronic Signature) Report Signed by Proxy. HARDEEP
== END 2017-04-26 17:45 | disposition home or self-care (01) ==
LOC: MW.ED 20:25 → MW.MS 23:14
PROVIDERS: ADMIT Family Medicine; ATTEND Family Medicine
DX: S29.011A Strain of muscle and tendon of front wall of thorax, initial encounter (principal); I95.1 Orthostatic hypotension; F10.929 Alcohol use, unspecified with intoxication, unspecified; I25.2 Old myocardial infarction; I10 Essential (primary) hypertension; G62.9 Polyneuropathy, unspecified; F41.9 Anxiety disorder, unspecified; F32.9 Major depressive disorder, single episode, unspecified; F17.210 Nicotine dependence, cigarettes, uncomplicated; Z88.5 Allergy status to narcotic agent; Z79.82 Long term (current) use of aspirin; Z79.899 Other long term (current) drug therapy; Z86.19 Personal history of other infectious and parasitic diseases; Z98.890 Other specified postprocedural states
CPT/HCPCS: 36415; 71010; 71275; 80048; 80053; 80061; 83690; 84484; 85025; 85379; 85610; 93005; 96361; 96374; 96376; 99285; A9270; G0378; G0480; J1885; J7040; Q9967; 99283

== ENCOUNTER 2017-04-30 06:27 | Day surgery (SDC) | payer OTHER, MEDICARE ==
[2017-04-30] MEDS ORDERED: Propofol 200 MG/20 ML SDV ONE (06:53)
[2017-04-30] MEDS ORDERED: Ondansetron 4 MG/2 ML SDV ONE (06:53)
[2017-04-30] MEDS ORDERED: Lidocaine 2% 5 ML SDV ONE (06:53)
[2017-04-30] MEDS ORDERED: Midazolam 1 MG/ML 2 ML SDV ONE (06:54)
[2017-04-30] MEDS ORDERED: fentaNYL 100 MCG/2 ML SDV ONE (06:54)
[2017-04-30] MEDS ORDERED: Etomidate 2 MG/ML 20 ML SDV IVPUSH ONE (07:24)
[2017-04-30] MEDS ORDERED: ceFAZolin 2 GM in Premix Bag 1 BAG IV ONE (07:30)
[2017-04-30] MEDS ORDERED: Bupivacaine 0.25% 10 ML SDV ONE ×2 (07:37→09:16)
[2017-04-30] MEDS ORDERED: Acetaminophen/HYDROcodone 325-5 MG Tab PO PRN (08:00)
[2017-04-30] MEDS ORDERED: Lactated Ringers 1,000 ML IV SCH (08:00)
[2017-04-30] MEDS ORDERED: Bupivacaine 0.25% 10 ML SDV INJECT ONE (08:00)
--- NOTE | 2017-04-30 08:13 | PCM.PREANE ---
Preanesthetic Assessment - Anesthesia/Transfusion/Family Hx Anesthesia History: Prior Anesthesia Without Reaction Family History of Anesthesia Reaction: No Transfusion History: Prior Transfusion Without Reaction Intubation History: Unknown - Review of Systems General: No Symptoms Pulmonary: No Symptoms Cardiovascular: No Symptoms Gastrointestinal: No Symptoms Neurological: No Symptoms Other: Reports: None - Physical Assessment NPO Status Date: 04/29/17 NPO Status Time: 23:00 O2 Sat by Pulse Oximetry: 98 Respiratory Rate: 16 Vital Signs: Last Vital Signs Temp 36.3 C 04/30/17 06:45 Pulse 55 L 04/30/17 06:45 Resp 16 04/30/17 06:45 BP 149/79 H 04/30/17 06:45 Pulse Ox 98 04/30/17 06:45 Height: 1.78 m Weight: 61.689 kg ASA Class: 3 Mental Status: Alert & Oriented x3 Airway Class: Mallampati = 2 Dentition: Reports: Dentures (few teeth left) Thyro-Mental Finger Breadths: 3 Mouth Opening Finger Breadths: 3 ROM/Head Extension: Limited/Partial Lungs: Clear to Auscultation, Normal Respiratory Effort, Decreased Breath Sounds , Crackles Cardiovascular: Regular Rate, Regular Rhythm - Allergies Allergies/Adverse Reactions: Allergies Allergy/AdvReac Type Severity Reaction Status Date / Time morphine Allergy Other Verified 04/25/17 20:38 - Blood Blood Available: No - Anesthesia Plan Pre-Op Medication Ordered: None - Acknowledgements Anesthesia Type Planned: MAC Pt an Appropriate Candidate for the Planned Anesthesia: Yes Alternatives and Risks of Anesthesia Discussed w Pt/Guardian: Yes Pt/Guardian Understands and Agrees with Anesthesia Plan: Yes PreAnesthesia Questionnaire HEENT History: Reports: None Other HEENT History: wears glasses, has upper denture and lower removable partial Cardiovascular History: Reports: Cardiomyopathy (non-ischemic), High Cholesterol , Hypertension, MT, Syncope (last one 4 days ago (orthostatic hypotension)) Other Cardiovascular History: "minor" MT 1 year ago, no stents...states ejection fraction went from 35-65% with cardiac rehab and meds Respiratory History: Reports: COPD Gastrointestinal History: Reports: None Genitourinary History: Reports: None Musculoskeletal History: Reports: Arthritis (generalized), Other (See Below) Other Musculoskeletal History: chronic muscle spasms in legs from mucsle and vascular damage Neurological History: Reports: Neuropathy, Peripheral, Other (See Below) Other Neuro History: bacterial meningitis '01 with multiple organ failure ( sepsis) Psychiatric History: Reports: Depression, PTSD, Other (See Below) (memory impairment) Endocrine/Metabolic History: Reports: None Hematologic History: Reports: Blood Transfusion(s) Immunologic History: Reports: None Oncologic (Cancer) History: Reports: None Dermatologic History: Reports: None - Infectious Disease History Infectious Disease History: Reports: Chicken Pox, Shingles Other Infectious Disease History: meningococal septicemia - Past Surgical History Other Cardiovascular Surgeries/Procedures: 2000, Pericardial Window Respiratory Surgical History: Reports: Other (See Below) Other Respiratory Surgeries/Procedures: 2000 Insertion of chest tube Male Surgical History: Reports: None Musculoskeletal Surgical History: Reports: Other (See Below) Other Musculoskeletal Surgeries/Procedures:: bilateral tarsal-metatarsal amputation, due to meningiococcal septicemia - SUBSTANCE USE Smoking Status *Q: Current Every Day Smoker (1 ppd) Tobacco Use Within Last Twelve Months: Cigarettes Days Per Week of Alcohol Use: 7 Number of Drinks Per Day: 5 Total Drinks Per Week: 35 Recreational Drug Use History: No - HOME MEDS Home Medications: Home Meds Ascorbic Acid 500 mg PO DAILY 05/02/16 [History] Aspirin 81 mg PO DAILY 05/02/16 [History] Baclofen [Lioresal] 10 mg PO BID 05/02/16 [History] Lisinopril 10 mg PO DAILY 05/02/16 [History] Magnesium Oxide [Magnesium] 400 mg PO DAILY 05/02/16 [History] Melatonin 6 - 9 mg PO BEDTIME 05/02/16 [History] Pregabalin [Lyrica] 150 mg PO BID 05/02/16 [History] Tolterodine Tartrate [Detrol LA] 4 mg PO DAILY 05/02/16 [History] Vitamin E 400 mg PO DAILY 05/02/16 [History] clonazePAM [Clonazepam] 1 mg PO QPM 05/02/16 [History] levETIRAcetam [Levetiracetam] 1,000 mg PO BEDTIME PRN 05/02/16 [History] FLUoxetine HCl [Fluoxetine] 40 mg PO TID 04/25/17 [History] Glucosam/Farhad-Col.Cplx/D3/C/Mn [Krddmiuogoa-Ryfixlbldop-P6] 1 tab PO DAILY 04/25 [History] Nicotine [Habitrol] 21 mg TRDERM DAILY 04/25/17 [History] Vitamin B Complex [B Complex] 1 tab PO DAILY 04/25/17 [History] Metoprolol Tartrate 25 mg PO BID 15 Days #30 tablet 04/26/17 [Rx] Mirtazapine 30 mg PO BEDTIME 04/26/17 [History] atorvaSTATin [Lipitor] 10 mg PO BEDTIME 04/26/17 [History] - CURRENT (IN HOUSE) MEDS Current Meds: Current Medications Hydrocodone Bitart/Acetaminophen (Angelica 325-5 Mg) 1 tab PO Q4H PRN PRN Reason: Pain Lactated Ringer's (Ringers, Lactated) 1,000 mls @ 125 mls/hr IV ASDIRECTED SEAN Discontinued Medications Bupivacaine HCl (Sensorcaine-Mpf 0.25%) 10 ml INJECT ONETIME ONE Stop: 04/30/17 08:01 Bupivacaine HCl (Sensorcaine-Mpf 0.25%) Confirm Administered Dose 10 ml .ROUTE .STK-MED ONE Stop: 04/30/17 07:38 Etomidate (Amidate) Confirm Administered Dose 40 mg IVPUSH .STK-MED ONE Stop: 04/30/17 07:25 Fentanyl (Sublimaze) Confirm Administered Dose 200 mcg .ROUTE .STK-MED ONE Stop: 04/30/17 06:55 Cefazolin Sodium/Dextrose 2 gm (/ Premix) 50 mls @ 100 mls/hr IV ONETIME ONE Stop: 04/30/17 07:59 Lidocaine (Xylocaine-Mpf 2%) Confirm Administered Dose 5 ml .ROUTE .STK-MED ONE Stop: 04/30/17 06:54 Midazolam HCl (Versed 1 Mg/Ml) Confirm Administered Dose 2 mg .ROUTE .STK-MED ONE Stop: 04/30/17 06:55 Ondansetron HCl (Zofran) Confirm Administered Dose 4 mg .ROUTE .STK-MED ONE Stop: 04/30/17 06:54 Propofol (Diprivan 20 Ml) Confirm Administered Dose 200 mg .ROUTE .STK-MED ONE Stop: 04/30/17 06:54
[2017-04-30 09:42] VITALS: BP 158/78
--- NOTE | 2017-04-30 09:48 | PCM48HPAN ---
Post Anesthesia Note - EVALUATION WITHIN 48HRS OF ANESTHETIC Vital Signs in Normal Range: Yes Patient Participated in Evaluation: Yes Respiratory Function Stable: Yes Airway Patent: Yes Cardiovascular Function Stable: Yes Hydration Status Stable: Yes Pain Control Satisfactory: Yes Nausea and Vomiting Control Satisfactory: Yes Mental Status Recovered: Yes - COMMENTS/OBSERVATIONS Free Text/Narrative:: no anesthesia problems, patient skipped recovery room postoperative care phase
--- NOTE | 2017-05-01 09:39 | PCM.OPNOTE ---
- General Post-Op/Procedure Note Date of Surgery/Procedure: 04/30/17 Operative Procedure(s): excision of right volar wrist ganglion Pre Op Diagnosis: right volar wrist ganglion Post-Op Diagnosis: Same Anesthesia Technique: Local, MAC Primary Surgeon: Lotus Wilson Roofing Contractor: Yaneth Velasquez Reason Roofing Contractor Was Necessary: retraction and immobilization Pathology: cyst sent for pathology - ganglion Complications: None Condition: Good
--- NOTE | 2017-05-06 21:18 | OR ---
SURGEON: TODD KENNEDY MD DATE OF PROCEDURE: 04/30/2017 PREOPERATIVE DIAGNOSIS: Right volar wrist ganglion. POSTOPERATIVE DIAGNOSIS: Right volar wrist ganglion. PROCEDURE: Excision of right volar wrist ganglion. LOW VOLTAGE ELECTRICIAN: SELIN Hernández. ANESTHESIA: Local MAC. INDICATIONS: Mr. Cedillo is a 66-year-old gentleman with a volar wrist ganglion that is causing pain. Risks and benefits of removal were discussed with him and he was in agreement to proceed. Previous imaging does demonstrate that this is a ganglion and does not communicate with the artery. It occurred after catheterization. Risks and benefits of removal were discussed and he was in agreement to proceed. Risks were including, but not limited to, bleeding, infection, damage to underlying or overlying structures, possible need for future interventions, and possible scarring. PROCEDURE IN DETAILS: After informed consent was obtained and placed on the chart, the patient was brought to the operating theater and laid in the side position. After adequate local MAC anesthetic was obtained, the area was prepped and draped and a time- out was completed to confirm side and site. The arm was then exsanguinated and tourniquet was inflated at 200 mmHg. Once adequately inflated, attention was then paid to dissection over the radial portion of the volar wrist. Dissection was carried through the skin and subcutaneous tissues until direct visualization of the ganglion. Dissection was carried circumferentially in order to isolate the ganglion itself. It was traced down to its base, cauterized, transected, and removed en bloc. It was sent for pathology. Once adequately removed, the area was irrigated and the skin was closed using deep 4-0 Monocryl stitch in a running 4-0 subcuticular for the skin. The patient tolerated the procedure well. All counts and needles were correct at the end of the case. He was dressed with fluffs and an Livan wrap. FOLLOWUP INSTRUCTIONS: The patient will see us in 10 to 14 days, sooner if any problems, questions, or concerns. Ten-pound weight limit until followup. CAMILLEGG[place]AMILLE / GREGORIO /[id number]
== END 2017-04-30 09:15 | disposition home or self-care (01) ==
LOC: MW.SDS 06:27
PROVIDERS: ATTEND Plastic Surgery
DX: M67.431 Ganglion, right wrist (principal); I10 Essential (primary) hypertension; F41.9 Anxiety disorder, unspecified; F32.9 Major depressive disorder, single episode, unspecified; E87.1 Hypo-osmolality and hyponatremia; Z88.8 Allergy status to other drugs, medicaments and biological substances; Z79.82 Long term (current) use of aspirin; Z79.891 Long term (current) use of opiate analgesic; Z79.899 Other long term (current) drug therapy; Z98.890 Other specified postprocedural states; Z98.52 Vasectomy status; F17.210 Nicotine dependence, cigarettes, uncomplicated
CPT/HCPCS: 25111; 88304; J2250; J3010; 01810; J2405; J2704

== ENCOUNTER 2018-03-11 11:39 | Emergency (ER) | payer OTHER, MEDICARE ==
--- NOTE | 2018-03-11 12:21 | EDM.PDOC ---
ED HPI GENERAL MEDICAL PROBLEM - General Chief Complaint: Lower Extremity Injury/Pain Stated Complaint: RIGHT FOOT SORE Time Seen by Provider: 03/11/18 12:19 Source of Information: Reports: Patient History Limitations: Reports: No Limitations - History of Present Illness INITIAL COMMENTS - FREE TEXT/NARRATIVE: HISTORY AND PHYSICAL: History of present illness: Patient is 67-year-old male here with possible infection of his right foot. He states that 2 days ago he noticed what looked like a little bit of bruising on the bottom of his right foot. Reports yesterday he noticed it was more blister like and he's been draining purulent fluid from it. He states it is a little bit painful and there is mild redness around it. He denies any fevers or chills. 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 He denies any history of diabetes. Patient has a follow -up with Dr. Jacob tomorrow. Patient does have a aws developer in [place] but was unable to get an appointment. Review of systems: As per history of present illness and below otherwise all systems reviewed and negative. Past medical history: As per history of present illness and as reviewed below otherwise noncontributory. Surgical history: As per history of present illness and as reviewed below otherwise noncontributory. Social history: No reported history of drug or alcohol abuse. Family history: As per history of present illness and as reviewed below otherwise noncontributory. Physical exam: General: Patient sitting comfortably in no acute distress and nontoxic appearing HEENT: Atraumatic, normocephalic, pupils reactive, negative for conjunctival pallor or scleral icterus, mucous membranes moist, throat clear, neck supple, nontender, trachea midline. No meningeal signs. Lungs: Clear to auscultation, breath sounds equal bilaterally, chest nontender. Heart: S1S2, regular, negative for clicks, rubs, or overt murmur. Abdomen: Soft, nondistended, nontender. Negative for masses or hepatosplenomegaly. Negative for costovertebral tenderness. Pelvis: Stable nontender. Genitourinary: Deferred. Rectal: Deferred. Extremities: There is a blister like lesion on the plantar aspect of the foot between the 3rd and 4th metatarsals. Purulent fluid is expressed. There is very minimal surrounding erythema without any warmth. Atraumatic, negative for cords or calf pain. Neurovascular unremarkable. Neuro: Awake, alert, oriented. Cranial nerves II through XII unremarkable. Cerebellum unremarkable. Motor and sensory unremarkable throughout. Exam nonfocal. Notes: Diagnostics: X-ray right foot Wound culture Therapeutics: None Prescriptions: Bactrim DS Impression: Foot infection Plan: 1. Keep the area clean and dry and take antibiotic as directed 2. Follow up with primary care provider tomorrow or podiatry 3. Return to ED as needed as discussed Definitive disposition and diagnosis as appropriate pending reevaluation and review of above. Right Foot Pain Score (Numeric/FACES): 4 - Related Data Allergies Allergy/AdvReac Type Severity Reaction Status Date / Time morphine Allergy Other Verified 03/11/18 11:54 Home Meds: Home Meds Ascorbic Acid 500 mg PO DAILY 05/02/16 [History] Aspirin 81 mg PO DAILY 05/02/16 [History] Baclofen [Lioresal] 10 mg PO BID 05/02/16 [History] Lisinopril 10 mg PO DAILY 05/02/16 [History] Melatonin 6 - 9 mg PO BEDTIME 05/02/16 [History] Pregabalin [Lyrica] 150 mg PO BID 05/02/16 [History] Tolterodine Tartrate [Detrol LA] 4 mg PO DAILY 05/02/16 [History] Vitamin E 400 mg PO DAILY 05/02/16 [History] Glucosam/Farhad-Col.Cplx/D3/C/Mn [Tspqfvlcwub-Hccvgjfvydq-J1] 1 tab PO DAILY 04/25 [History] Vitamin B Complex [B Complex] 1 tab PO DAILY 04/25/17 [History] Metoprolol Tartrate 25 mg PO BID 15 Days #30 tablet 04/26/17 [Rx] Sulfamethoxazole/Trimethoprim [Bactrim Ds Tablet] 1 each PO BID #14 tablet 03/11 [Rx] Past Medical History HEENT History: Reports: None Other HEENT History: wears glasses, has upper denture and lower removable partial Cardiovascular History: Reports: Hypertension Other Cardiovascular History: pericarditis Respiratory History: Reports: COPD Gastrointestinal History: Reports: None Genitourinary History: Reports: None Musculoskeletal History: Reports: Arthritis (generalized), Other (See Below) Other Musculoskeletal History: shoulder injections Neurological History: Reports: Neuropathy, Peripheral Other Neuro History: bacterial meningitis '01 with multiple organ failure ( sepsis) Psychiatric History: Reports: Depression, PTSD, Other (See Below) Endocrine/Metabolic History: Reports: None Hematologic History: Reports: None Immunologic History: Reports: None Oncologic (Cancer) History: Reports: None Dermatologic History: Reports: None - Infectious Disease History Infectious Disease History: Reports: Measles Other Infectious Disease History: meningococal septicemia - Past Surgical History Head Surgeries/Procedures: Reports: None Other Respiratory Surgeries/Procedures: previous chest tube Male Surgical History: Reports: None Other Musculoskeletal Surgeries/Procedures:: 2 toe amputations Social & Family History - Family History Family Medical History: Noncontributory - Tobacco Use Smoking Status *Q: Current Every Day Smoker Years of Tobacco use: 48 Packs/Tins Daily: 1 - Caffeine Use Caffeine Use: Reports: Coffee - Recreational Drug Use Recreational Drug Use: No Review of Systems - Review of Systems Review Of Systems: ROS reveals no pertinent complaints other than HPI. ED EXAM, GENERAL - Physical Exam Exam: See Below (see dictation) Course - Vital Signs Last Recorded V/S: Last Vital Signs Temp 35.7 C 03/11/18 11:51 Pulse 66 03/11/18 11:51 Resp 18 03/11/18 11:51 BP 144/76 H 03/11/18 11:51 Pulse Ox 96 03/11/18 11:51 - Orders/Labs/Meds Orders: Active Orders 24 hr Category Date Time Status CULTURE WOUND [RM] Stat Lab 03/11/18 12:10 Ordered Departure - Departure Time of Disposition: 13:10 Disposition: Home, Self-Care 01 Condition: Good Clinical Impression: Right foot infection - Discharge Information Referrals: PCP,None [Primary Care Provider] - Forms: ED Department Discharge Additional Instructions: The following information is given to patients seen in the emergency department who are being discharged to home. This information is to outline your options for follow-up care. We provide all patients seen in our emergency department with a follow-up referral. The need for follow-up, as well as the timing and circumstances, are variable depending upon the specifics of your emergency department visit. If you don't have a primary care physician on staff, we will provide you with a referral. We always advise you to contact your personal physician following an emergency department visit to inform them of the circumstance of the visit and for follow-up with them and/or the need for any referrals to a consulting specialist. The emergency department will also refer you to a specialist when appropriate. This referral assures that you have the opportunity for follow-up care with a specialist. All of these measure are taken in an effort to provide you with optimal care, which includes your follow-up. Under all circumstances we always encourage you to contact your private physician who remains a resource for coordinating your care. When calling for follow-up care, please make the office aware that this follow-up is from your recent emergency room visit. If for any reason you are refused follow-up, please contact the [facility] Emergency Department at and asked to speak to the emergency department charge nurse. [facility] Primary Care - Podiatry [address] [place] [id number] [place] [address] 1. Keep the area clean and dry and take antibiotic as directed 2. Follow up with primary care provider tomorrow or podiatry 3. Return to ED as needed as discussed - My Orders Last 24 Hours: My Active Orders 03/11/18 12:10 CULTURE WOUND [RM] Stat - Assessment/Plan Last 24 Hours: My Active Orders 03/11/18 12:10 CULTURE WOUND [RM] Stat
--- NOTE | 2018-03-11 13:08 | CR ---
EXAM DATE: 03/11/18 PATIENT'S AGE: 67 Patient: ASHTYN FRY Facility: [place], [place] Site . Site : 1950 Study: XRay Extremity Right FOOT [id number]/29/2018 12:43:40 PM Ordering Physician: Doctor Yeung Final Report: INDICATION: Pain. COMPARISON: None. FINDINGS: Soft tissues are edematous in appearance. The bones are diffusely demineralized. The 1st through 5th toes have been amputated. Joint spaces are preserved and there is no acute fracture nor dislocation. The bones are demineralized. IMPRESSION: 1. Changes of right 1st and 5th toe amputation. 2. Disuse osteopenia. Dictated by Yaneth Mei MD @ Mar 11 2018 12:56PM (Electronic Signature) Report Signed by Proxy. MTDKimberly
[2018-03-11 13:26] VITALS: BP 118/82
== END 2018-03-11 13:26 | disposition home or self-care (01) ==
LOC: MW.ED 11:39
DX: L08.89 Other specified local infections of the skin and subcutaneous tissue (principal); I10 Essential (primary) hypertension; J44.9 Chronic obstructive pulmonary disease, unspecified; F17.210 Nicotine dependence, cigarettes, uncomplicated; Z88.5 Allergy status to narcotic agent; Z79.899 Other long term (current) drug therapy; Z79.82 Long term (current) use of aspirin
CPT/HCPCS: 73620-26-RT; 73620-RT; 87070; 87186; 99284

== ENCOUNTER 2019-02-08 09:08 | Observation (INO) | payer MEDICARE, OTHER ==
[2019-02-08] MEDS ORDERED: Sodium Chloride 0.9% 1,000 ML IV ONE (09:12)
[2019-02-08] MEDS ORDERED: Ondansetron 4 MG/2 ML SDV IVPUSH ONE (09:12)
--- NOTE | 2019-02-08 09:18 | EDM.PDOC ---
ED HPI GENERAL MEDICAL PROBLEM - General Stated Complaint: WEAKNESS Time Seen by Provider: 02/08/19 09:14 Source of Information: Reports: Patient History Limitations: Reports: No Limitations - History of Present Illness INITIAL COMMENTS - FREE TEXT/NARRATIVE: HISTORY AND PHYSICAL: History of present illness: Patient is a 68-year-old male who presents to the emergency room with complaints of weakness, nausea, vomiting and diaphoresis. Patient reports on Friday he had surgery to the right foot for an osteomyelitis. He has a PICC line which she has been receiving IV antibiotics. Today he was supposed to present to our infusion center for antibiotic therapy. His instead brought him to our emergency room for evaluation. Over the past 24 hours he has progressive nausea, vomiting and weakness. Upon arrival he had a near syncopal event while in our waiting room. reports he "passed out", but states he felt so weak "I had to let myself down to the ground". He denies hitting his head, passing out or blacking out. Patient denies any fever, chills, headache, change in vision. Denies any chest pain, back pain or cough. Denies any abdominal pain, nausea, vomiting, diarrhea , constipation or dysuria. Has not noted any blood in urine or stool. Patient has been eating and drinking appropriately. Past medical history of hypertension, pericarditis, COPD, PR, depression and bacterial meningitis (resulting in bilateral distal foot amputations). Review of systems: As per history of present illness and below otherwise all systems reviewed and negative. Past medical history: As per history of present illness and as reviewed below otherwise noncontributory. Surgical history: As per history of present illness and as reviewed below otherwise noncontributory. Social history: See social history for further information Family history: As per history of present illness and as reviewed below otherwise noncontributory. Physical exam: General: Chronically ill-appearing 68-year-old male. Alert and oriented. Anxious appearing and mild discomfort. HEENT: Nontender with palpation, normocephalic, pupils equal and reactive bilaterally, negative for conjunctival pallor or scleral icterus, mucous membranes moist, TMs normal bilaterally, throat clear, neck supple, nontender, trachea midline. No drooling or trismus noted. No meningeal signs. No hot potato voice noted. Lungs: Clear to auscultation, breath sounds equal bilaterally, chest nontender. Heart: S1S2, regular rate and rhythm without overt murmur Abdomen: Soft, nondistended, nontender. Negative for masses. Negative for costovertebral tenderness. Pelvis: Stable nontender. Skin: Incision sites at the right distal foot appears intact without any evidence of erythema or drainage. Otherwise skin is intact, warm, dry. No lesions or rashes noted. Extremities: Recent debridement of the right distal foot, moves all extremities per self without difficulty or deficits, negative for cords or calf pain. Neurovascular unremarkable. Neuro: Awake, alert, oriented. Cranial nerves II through XII unremarkable. Cerebellum unremarkable. Motor and sensory unremarkable throughout. Exam nonfocal. Notes: Patient was admitted to [facility] earlier this month for a debridement of an ulceration/osteomyelitis of the right foot stump and initiation of IV antibiotics. He has outpatient orders for 2gm IV Rocephin per podiatry. The outpatient order for 2 g Rocephin IV was verified with the [facility] floor and will be given here at this time. Patient does have an elevated white count but is currently receiving Rocephin IV. Continues to have nausea, appears anxious which he states is due to his chronic back pain. We did discuss admission for further evaluation and care. He is agreeable. Dr. Jules was consulted on this case. Diagnostics: CBC, CMP, Lactic, BC x 2, Troponin, orthostatic vitals, Head CT, EKG, CXR Therapeutics: IV fluids, zofran, 2gm rocephin, ativan Impression: Syncope Generalized weakness Chronic back pain Cellulitis of right foot Plan: Observation admission to med/surg Definitive disposition and diagnosis as appropriate pending reevaluation and review of above. - Related Data Allergies Allergy/AdvReac Type Severity Reaction Status Date / Time morphine Allergy Other Verified 02/08/19 09:20 Home Meds: Home Meds Ascorbic Acid 500 mg PO DAILY 05/02/16 [History] Aspirin 81 mg PO DAILY 05/02/16 [History] Baclofen [Lioresal] 10 mg PO BID 05/02/16 [History] Lisinopril 10 mg PO DAILY 05/02/16 [History] Melatonin 6 - 9 mg PO BEDTIME 05/02/16 [History] Pregabalin [Lyrica] 150 mg PO BID 05/02/16 [History] Tolterodine Tartrate [Detrol LA] 4 mg PO DAILY 05/02/16 [History] Vitamin E 400 mg PO DAILY 05/02/16 [History] Glucosam/Farhad-Col.Cplx/D3/C/Mn [Rxakvhlhukj-Mpfmvgdbhgd-K2] 1 tab PO DAILY 04/25 [History] Vitamin B Complex [B Complex] 1 tab PO DAILY 04/25/17 [History] Metoprolol Tartrate 25 mg PO BID 15 Days #30 tablet 04/26/17 [Rx] Sulfamethoxazole/Trimethoprim [Bactrim Ds Tablet] 1 each PO BID #14 tablet 03/11 [Rx] Past Medical History HEENT History: Reports: None Other HEENT History: wears glasses, has upper denture and lower removable partial Cardiovascular History: Reports: Hypertension Other Cardiovascular History: pericarditis Respiratory History: Reports: COPD Gastrointestinal History: Reports: None Genitourinary History: Reports: None Musculoskeletal History: Reports: Arthritis (generalized), Other (See Below) Other Musculoskeletal History: shoulder injections Neurological History: Reports: Neuropathy, Peripheral Other Neuro History: bacterial meningitis '01 with multiple organ failure ( sepsis) Psychiatric History: Reports: Depression, PTSD, Other (See Below) Endocrine/Metabolic History: Reports: None Hematologic History: Reports: None Immunologic History: Reports: None Oncologic (Cancer) History: Reports: None Dermatologic History: Reports: None - Infectious Disease History Infectious Disease History: Reports: Measles Other Infectious Disease History: meningococal septicemia - Past Surgical History Head Surgeries/Procedures: Reports: None Other Respiratory Surgeries/Procedures: previous chest tube Male Surgical History: Reports: None Other Musculoskeletal Surgeries/Procedures:: 2 toe amputations Social & Family History - Family History Family Medical History: Noncontributory - Caffeine Use Caffeine Use: Reports: Coffee ED ROS GENERAL - Review of Systems Review Of Systems: ROS reveals no pertinent complaints other than HPI. - Physical Exam Exam: See Below (See dictation) Course - Vital Signs Last Recorded V/S: Last Vital Signs Temp 97.1 F 02/08/19 10:23 Pulse 74 02/08/19 10:23 Resp 16 02/08/19 10:23 BP 168/91 H 02/08/19 10:23 Pulse Ox 99 02/08/19 10:23 Orthostatic Blood Pressure [] 157/88 Orthostatic Blood Pressure [] 174/87 Orthostatic Blood Pressure [] 174/78 - Orders/Labs/Meds Orders: Active Orders 24 hr Category Date Time Status EKG Documentation Completion [RC] STAT Care 02/08/19 09:12 Active Orthostatic Vital Signs [RC] ASDIRECTED Care 02/08/19 09:12 Active CULTURE BLOOD [BC] Stat Lab 02/08/19 09:20 Received CULTURE BLOOD [BC] Stat Lab 02/08/19 09:30 Received [email or web address] [Rocephin in Dextrose,Iso-Osm 2 GM/50 ML] 2 Med 02/08/19 10:17 Ordered gm Premix Bag 1 bag IV ONETIME Blood Culture x2 Reflex Set [OM.PC] Stat Oth 02/08/19 09:12 Ordered Medication Orders Ceftriaxone Sodium/Dextrose 2 (gm/ Premix) 50 mls @ 100 mls/hr IV ONETIME ONE Stop: 02/08/19 10:46 Last Admin: 02/08/19 10:32 Dose: 100 mls/hr Labs: Laboratory Tests 02/08/19 02/08/19 02/08/19 Range/Units 09:20 09:20 09:20 WBC 12.81 H (4.0-11.0) K/uL RBC 4.25 L (4.50-5.90) M/uL Hgb 13.3 (13.0-17.0) g/dL Hct 38.3 (38.0-50.0) % MCV 90.1 (80.0-98.0) fL MCH 31.3 (27.0-32.0) pg MCHC 34.7 (31.0-37.0) g/dL RDW Std Deviation 48.4 (28.0-62.0) fl RDW Coeff of Mao 15 (11.0-15.0) % Plt Count 646 H (150-400) K/uL MPV 10.00 (7.40-12.00) fL Neut % (Auto) 64.1 (48.0-80.0) % Lymph % (Auto) 24.2 (16.0-40.0) % Mccreary % (Auto) 9.7 (0.0-15.0) % Eos % (Auto) 1.5 (0.0-7.0) % Baso % (Auto) 0.5 (0.0-1.5) % Neut # (Auto) 8.2 H (1.4-5.7) K/uL Lymph # (Auto) 3.1 H (0.6-2.4) K/uL Mccreary # (Auto) 1.2 H (0.0-0.8) K/uL Eos # (Auto) 0.2 (0.0-0.7) K/uL Baso # (Auto) 0.1 (0.0-0.1) K/uL Nucleated RBC % 0.0 /100WBC Nucleated RBCs # 0 K/uL Lactate 2.0 (0.20-2.00) mmol/L Sodium 137 (136-148) mmol/L Potassium 4.3 (3.5-5.1) mmol/L Chloride 102 (98-107) mmol/L Carbon Dioxide 18.5 L (21.0-32.0) mmol/L BUN 28 H (7.0-18.0) mg/dL Creatinine 1.2 (0.8-1.3) mg/dL Est Cr Clr Drug Dosing 55.94 mL/min Estimated GFR (MDRD) > 60.0 ml/min Glucose 98 (74-106) mg/dL Calcium 9.3 (8.5-10.1) mg/dL Total Bilirubin 0.4 (0.2-1.0) mg/dL AST 48 H (15-37) IU/L ALT 37 (14-63) IU/L Alkaline Phosphatase 138 H (46-116) U/L Troponin I < 0.050 (0.000-0.056) ng/mL Total Protein 8.0 (6.4-8.2) g/dL Albumin 3.1 L (3.4-5.0) g/dL Globulin 4.9 H (2.6-4.0) g/dL Albumin/Globulin Ratio 0.6 L (0.9-1.6) Meds: Medications Generic Name Dose Route Start Last Admin Trade Name Freq PRN Reason Stop Dose Admin Ceftriaxone Sodium/Dextrose 2 50 mls @ 100 mls/hr 02/08/19 10:17 02/08/19 10: 32 gm/ Premix IV 02/08/19 10:46 100 mls/hr ONETIME ONE Administration Discontinued Medications Generic Name Dose Route Start Last Admin Trade Name Freq PRN Reason Stop Dose Admin Sodium Chloride 1,000 mls @ 999 mls/hr 02/08/19 09:12 02/08/19 09:37 Normal Saline IV 02/08/19 10:12 999 mls/hr STAT ONE Administration Lorazepam 1 mg 02/08/19 10:41 Ativan IVPUSH 02/08/19 10:42 ONETIME ONE Ondansetron HCl 4 mg 02/08/19 09:12 02/08/19 09:48 Zofran IVPUSH 02/08/19 09:13 4 mg ONETIME ONE Administration Departure - Departure Time of Disposition: 10:48 Disposition: Refer to Observation Clinical Impression: Syncope Qualifiers: Syncope type: unspecified Qualified Code(s): R55 - Syncope and collapse Chronic back pain Qualifiers: Back pain location: low back pain Back pain laterality: bilateral Sciatica presence: without sciatica Qualified Code(s): M54.5 - Low back pain; G89.29 - Other chronic pain Cellulitis Qualifiers: Site of cellulitis: extremity Site of cellulitis of extremity: lower extremity Laterality: right Qualified Code(s): L03.115 - Cellulitis of right lower limb - Discharge Information Referrals: PCP,Unknown [Primary Care Provider] - - My Orders Last 24 Hours: My Active Orders 02/08/19 09:12 EKG Documentation Completion [RC] STAT Orthostatic Vital Signs [RC] ASDIRECTED Blood Culture x2 Reflex Set [OM.PC] Stat 02/08/19 09:20 CULTURE BLOOD [BC] Stat 02/08/19 09:30 CULTURE BLOOD [BC] Stat 02/08/19 10:17 cefTRIAXone [Rocephin in Dextrose,Iso-Osm 2 GM/50 ML] 2 gm Premix Bag 1 bag IV ONETIME - Assessment/Plan Last 24 Hours: My Active Orders 02/08/19 09:12 EKG Documentation Completion [RC] STAT Orthostatic Vital Signs [RC] ASDIRECTED Blood Culture x2 Reflex Set [OM.PC] Stat 02/08/19 09:20 CULTURE BLOOD [BC] Stat 02/08/19 09:30 CULTURE BLOOD [BC] Stat 02/08/19 10:17 cefTRIAXone [Rocephin in Dextrose,Iso-Osm 2 GM/50 ML] 2 gm Premix Bag 1 bag IV ONETIME
[2019-02-08] MEDS ORDERED: cefTRIAXone 2 GM in Premix Bag 1 BAG IV ONE (10:17)
--- NOTE | 2019-02-08 10:19 | CR ---
EXAMINATION: Portable chest radiograph. HISTORY: Syncope. FINDINGS: The trachea is midline. The cardiomediastinal silhouette is within normal limits. Volume loss of the left lower lobe with elevation of the left hemidiaphragm. Mild adjacent atelectasis. A trace pleural effusion is not excluded. Left-sided PICC line is noted. No pneumothorax. Osseous structures appear unremarkable. IMPRESSION: 1. Stable elevation of the left hemidiaphragm with mild left basilar atelectasis and/or infiltrate. A trace left pleural effusion is not excluded.
[2019-02-08 10:21] LABS: BLOOD UREA NITROGEN,BUN 28 mg/dL (7.0-18.0); CARBON DIOXIDE,CO2 18.5 mmol/L (21.0-32.0); CHLORIDE,CL 102 mmol/L (98-107); GLUCOSE RANDOM 98 mg/dL (74-106); POTASSIUM,K 4.3 mmol/L (3.5-5.1); SODIUM,NA 137 mmol/L (136-148)
--- NOTE | 2019-02-08 10:30 | CT ---
EXAMINATION: Non contrast CT head. Coronal and sagittal reformats. HISTORY: Syncope FINDINGS: No evidence of intra or extra axial hemorrhage, mass, midline shift, hydrocephalus or edema. No hypoattenuation changes in the major vascular territories to suggest acute infarct. No abnormal intracranial calcifications are detected. No evidence of substantial vascular calcifications. Paranasal sinuses and mastoid air cells are well aerated without substantial findings. Pituitary fossa appears unremarkable. Orbits and globes are symmetric. Calvarium is intact. No evidence of skull fracture. IMPRESSION: No acute intracranial findings.
[2019-02-08] MEDS ORDERED: LORazepam 2 MG/ML SDV IVPUSH ONE ×2 (10:41→12:08)
[2019-02-08] MEDS ORDERED: Ondansetron 4 MG Tab.DIS PO PRN (11:21)
[2019-02-08] MEDS ORDERED: Temazepam 15 MG Cap PO PRN (11:21)
[2019-02-08] MEDS ORDERED: Ondansetron 4 MG/2 ML SDV IVPUSH PRN (11:21)
[2019-02-08] MEDS: Enoxaparin 40 MG/0.4 ML Syringe SUBCUT SCH (11:46)
[2019-02-08] MEDS: Sodium Chloride 0.9% 1,000 ML IV SCH ×2 (11:46→18:06)
[2019-02-08] MEDS ORDERED: Metoclopramide 10 MG/2 ML SDV IVPUSH ONE (13:19)
--- NOTE | 2019-02-08 16:04 | CR ---
EXAMINATION: Abdomen HISTORY: Pain COMPARISON: 09/26/2009 TECHNIQUE: AP views of the abdomen FINDINGS: There is elevation of the left hemidiaphragm. Moderate amount of stool and gas project through the colon and rectum without evidence of obstruction. No organomegaly. No abnormal calcifications. Moderate degenerative changes noted within the lumbar spine. IMPRESSION: 1. No acute findings noted within the abdomen.
--- NOTE | 2019-02-08 16:04 | PCM.HP ---
<Arturotriston Aleksandar Zelaya - Last Filed: 02/08/19 16:14> H&P History of Present Illness - General Date of Service: 02/08/19 Admit Problem/Dx: Admission Diagnosis/Problem Admission Diagnosis/Problem Syncope - History of Present Illness Initial Comments - Free Text/Narative: 68 y/o male with history of neuropathy and bilateral toe amputations who presented to the ER complaining of nausea, vomiting. States he was hospitalized at [facility] 1 week ago for osteomyelitis of right 2nd metatarsal s/ p debridement. He hand a PICC line placed and started on antibiotics. Per chart review, it seems that he was discharged home on Augmentin 875 mg PO BID and Ceftriaxone 2 g IV daily for 14 days. Patient states he was on his way to get his IV antibiotics when he started feeling nauseous and lightheaded. He states he has not been eating his normal food over the weekend due to nausea. Has been dehydrated. Denies any fevers, diarrhea. No abdominal pain. Endorses dry heaving. No chest pain, dyspnea. No dysuria. - Related Data Allergies/Adverse Reactions: Allergies Allergy/AdvReac Type Severity Reaction Status Date / Time morphine Allergy Other Verified 02/08/19 11:42 Home Medications: Home Meds Lisinopril 10 mg PO BEDTIME 05/02/16 [History] Pregabalin [Lyrica] 150 mg PO BID 05/02/16 [History] Tolterodine Tartrate [Detrol LA] 4 mg PO DAILY 05/02/16 [History] Amoxicillin/Potassium Clav [Amox-Clav 875-125 mg Tablet] 1 tab PO Q12H 02/08/19 [History] Hydrocodone/Acetaminophen [[place] 5-325 Tablet] 5 - 325 mg PO Q6HR PRN 02/08/19 [ History] Meloxicam 7.5 mg PO DAILY 02/08/19 [History] Metoprolol Tartrate 50 mg PO DAILY 02/08/19 [History] QUEtiapine [SEROquel] 50 mg PO BEDTIME 02/08/19 [History] Sertraline [Zoloft] 50 mg PO BEDTIME 02/08/19 [History] traZODone HCl [Trazodone HCl] 50 mg PO BEDTIME 02/08/19 [History] Past Medical History HEENT History: Reports: None Other HEENT History: wears glasses, has upper denture and lower removable partial Cardiovascular History: Reports: Hypertension Other Cardiovascular History: pericarditis Respiratory History: Reports: COPD Gastrointestinal History: Reports: None Genitourinary History: Reports: None Musculoskeletal History: Reports: Arthritis, Other (See Below) Other Musculoskeletal History: shoulder injections Neurological History: Reports: Neuropathy, Peripheral Other Neuro History: bacterial meningitis '01 with multiple organ failure ( sepsis) Psychiatric History: Reports: Depression, PTSD, Other (See Below) Endocrine/Metabolic History: Reports: None Hematologic History: Reports: None Immunologic History: Reports: None Oncologic (Cancer) History: Reports: None Dermatologic History: Reports: None - Infectious Disease History Infectious Disease History: Reports: Measles Other Infectious Disease History: meningococal septicemia - Past Surgical History Head Surgeries/Procedures: Reports: None Other Respiratory Surgeries/Procedures: previous chest tube Male Surgical History: Reports: None Other Musculoskeletal Surgeries/Procedures:: 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 Social & Family History - Family History Family Medical History: Noncontributory - Tobacco Use Smoking Status *Q: Former Smoker Years of Tobacco use: 50 Packs/Tins Daily: 1 Used Tobacco, but Quit: No Month/Year Tobacco Last Used: February 01, 2019 Second Hand Smoke Exposure: No - Caffeine Use Caffeine Use: Reports: Coffee Caffeine Use Comment: 6 cups of coffee a day - Alcohol Use Date of Last Drink: 12/11/18 - Recreational Drug Use Recreational Drug Use: No H&P Review of Systems - Review of Systems: Review Of Systems: ROS reveals no pertinent complaints other than HPI. Exam - Exam Exam: See Below - Vital Signs Vital Signs: Last Vital Signs Temp 36.8 C 02/08/19 11:45 Pulse 65 02/08/19 11:45 Resp 18 02/08/19 11:45 BP 178/90 H 02/08/19 11:45 Pulse Ox 96 02/08/19 11:45 Orthostatic Blood Pressure [ 157/88 Standing] Orthostatic Blood Pressure [ 174/87 Sitting] Orthostatic Blood Pressure [ 174/78 Supine] Weight: 62.369 kg - Exam General: Alert, Oriented, Cooperative HEENT: Other (dry mucous membranes) Lungs: Clear to Auscultation, Normal Respiratory Effort Cardiovascular: Regular Rate, Regular Rhythm GI/Abdominal Exam: Normal Bowel Sounds, Soft, Non-Tender Extremities: Normal Range of Motion, Non-Tender, No Pedal Edema, Other ( bilatereal toe amputations) Skin: Warm, Dry Neuro Extensive - Mental Status: Alert, Oriented x3 - Patient Data Lab Results Last 24 hrs: Laboratory Results - last 24 hr 02/08/19 02/08/19 02/08/19 Range/Units 09:20 09:20 09:20 WBC 12.81 H (4.0-11.0) K/uL RBC 4.25 L (4.50-5.90) M/uL Hgb 13.3 (13.0-17.0) g/dL Hct 38.3 (38.0-50.0) % MCV 90.1 (80.0-98.0) fL MCH 31.3 (27.0-32.0) pg MCHC 34.7 (31.0-37.0) g/dL RDW Std Deviation 48.4 (28.0-62.0) fl RDW Coeff of Mao 15 (11.0-15.0) % Plt Count 646 H (150-400) K/uL MPV 10.00 (7.40-12.00) fL Neut % (Auto) 64.1 (48.0-80.0) % Lymph % (Auto) 24.2 (16.0-40.0) % [place] % (Auto) 9.7 (0.0-15.0) % Eos % (Auto) 1.5 (0.0-7.0) % Baso % (Auto) 0.5 (0.0-1.5) % Neut # (Auto) 8.2 H (1.4-5.7) K/uL Lymph # (Auto) 3.1 H (0.6-2.4) K/uL [place] # (Auto) 1.2 H (0.0-0.8) K/uL Eos # (Auto) 0.2 (0.0-0.7) K/uL Baso # (Auto) 0.1 (0.0-0.1) K/uL Nucleated RBC % 0.0 /100WBC Nucleated RBCs # 0 K/uL Lactate 2.0 (0.20-2.00) mmol/L Sodium 137 (136-148) mmol/L Potassium 4.3 (3.5-5.1) mmol/L Chloride 102 (98-107) mmol/L Carbon Dioxide 18.5 L (21.0-32.0) mmol/L BUN 28 H (7.0-18.0) mg/dL Creatinine 1.2 (0.8-1.3) mg/dL Est Cr Clr Drug Dosing 55.94 mL/min Estimated GFR (MDRD) > 60.0 ml/min Glucose 98 (74-106) mg/dL Calcium 9.3 (8.5-10.1) mg/dL Total Bilirubin 0.4 (0.2-1.0) mg/dL AST 48 H (15-37) IU/L ALT 37 (14-63) IU/L Alkaline Phosphatase 138 H (46-116) U/L Troponin I < 0.050 (0.000-0.056) ng/mL Total Protein 8.0 (6.4-8.2) g/dL Albumin 3.1 L (3.4-5.0) g/dL Globulin 4.9 H (2.6-4.0) g/dL Albumin/Globulin Ratio 0.6 L (0.9-1.6) Result Diagrams: 02/08/19 09:20 02/08/19 09:20 Kristofer Results Last 24 hrs: Microbiology 02/08/19 09:30 Anaerobic Blood Culture - Final Blood - Venous - Lab Draw Problem List Initiated/Reviewed/Updated: Yes Orders Last 24hrs: Active Orders 24 hr Category Date Time Status Admission Status [Patient Status] [ADT] Stat ADT 02/08/19 10:51 Active EKG Documentation Completion [RC] STAT Care 02/08/19 09:12 Active Orthostatic Vital Signs [RC] ASDIRECTED Care 02/08/19 09:12 Active Oxygen Therapy [RC] PRN Care 02/08/19 11:21 Active Telemetry Monitoring [Cardiac Monitoring] [RC] Q8H Care 02/08/19 11:02 Active Up ad Funmi [RC] ASDIRECTED Care 02/08/19 11:21 Active VTE/DVT Education [RC] PER UNIT ROUTINE Care 02/08/19 11:21 Active Vital Signs [RC] Q4H Care 02/08/19 11:21 Active Nothing per Oral Now Diet [DIET] Diet 02/08/19 Dinner Active KUB [Abdomen 1V Flat] [CR] Routine Exams 02/08/19 14:50 Taken CULTURE BLOOD [BC] Stat Lab 02/08/19 09:20 Received CULTURE BLOOD [BC] Stat Lab 02/08/19 09:30 Results Enoxaparin [Lovenox] Med 02/08/19 11:30 Active 40 mg SUBCUT Q24H Ondansetron [Zofran ODT] Med 02/08/19 11:21 Active 4 mg PO Q4H PRN Ondansetron [Zofran] Med 02/08/19 11:21 Active 4 mg IVPUSH Q4H PRN Pregabalin [Lyrica] Med 02/08/19 21:00 Active 150 mg PO BID QUEtiapine [SEROquel] Med 02/08/19 21:00 Active 50 mg PO BEDTIME Sertraline [Zoloft] Med 02/08/19 21:00 Active 50 mg PO BEDTIME Sodium Chloride 0.9% [Normal Saline] 1,000 ml Med 02/08/19 11:30 Active IV ASDIRECTED Tolterodine [Detrol LA 24 Hr] Med 02/09/19 09:00 Active 4 mg PO DAILY traZODone Med 02/08/19 21:00 Active 50 mg PO BEDTIME Blood Culture x2 Reflex Set [OM.PC] Stat Oth 02/08/19 09:12 Ordered Resuscitation Status Routine Resus Stat 02/08/19 11:21 Ordered Medication Orders Enoxaparin Sodium (Lovenox) 40 mg SUBCUT Q24H [facility] Last Admin: 02/08/19 11:46 Dose: 40 mg Sodium Chloride (Normal Saline) 1,000 mls @ 175 mls/hr IV ASDIRECTED SEAN Stop: 02/09/19 17:13 Last Admin: 02/08/19 11:46 Dose: 175 mls/hr Ondansetron HCl (Zofran Odt) 4 mg PO Q4H PRN PRN Reason: nausea, able to take PO Ondansetron HCl (Zofran) 4 mg IVPUSH Q4H PRN PRN Reason: Nausea Pregabalin (Lyrica) 150 mg PO BID [facility] Quetiapine Fumarate (Seroquel) 50 mg PO BEDTIME [facility] Sertraline HCl (Zoloft) 50 mg PO BEDTIME [facility] Tolterodine Tartrate (Detrol La 24 Hr) 4 mg PO DAILY [facility] Trazodone HCl (Trazodone) 50 mg PO BEDTIME [facility] Assessment/Plan Comment:: A: 1. Nausea, vomiting 2. 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 Leukocytosis 4. Thrombocytosis 5. History of depression, neuropathy, hypertension P: 1. Nausea, vomiting- unsure etiology. Suspect likely 2/2 recent antibiotic use vs acute withdrawal symptoms from chronic medication since patient states he did not take his medications over the weekend. NPO for now. Will advance as tolerated. Reglan 10 mg IV Q6H PRN for nausea. 2. History of osteomyelitis of right 2nd metatarsal- will continue with ceftriaxone 2g IV daily. Augmentin 875 mg PO BID per discharge instructions from [facility]. 3. Leukocytosis- likely reactive. Patient had WBC of 13 at time of discharge from [facility] on 02/06/19. Afebrile. Will continue to monitor. 4. Thrombocytosis- likely reactive since previous were normal recently. Will continue to monitor. 5. Hx of depression, neuropathy- continue home medications. Dispo: 1-2 days. <Dave Jules - Last Filed: 02/08/19 16:50> H&P History of Present Illness - General Admit Problem/Dx: Admission Diagnosis/Problem Admission Diagnosis/Problem Syncope I have seen and examined the patient independently of Dr. Sandy MD. I have reviewed and agree with the plan of care as outlined by Dr. Delgado and agree with the plan as outlined by this resident. I have discussed the case with the resident. Please see orders. Exam - Vital Signs Vital Signs: Last Vital Signs Temp 36.8 C 02/08/19 11:45 Pulse 77 02/08/19 16:36 Resp 18 02/08/19 11:45 BP 153/77 H 02/08/19 16:36 Pulse Ox 96 02/08/19 11:45 Orthostatic Blood Pressure [ 157/88 Standing] Orthostatic Blood Pressure [ 174/87 Sitting] Orthostatic Blood Pressure [ 174/78 Supine] - Patient Data Lab Results Last 24 hrs: Laboratory Results - last 24 hr 02/08/19 02/08/19 02/08/19 Range/Units 09:20 09:20 09:20 WBC 12.81 H (4.0-11.0) K/uL RBC 4.25 L (4.50-5.90) M/uL Hgb 13.3 (13.0-17.0) g/dL Hct 38.3 (38.0-50.0) % MCV 90.1 (80.0-98.0) fL MCH 31.3 (27.0-32.0) pg MCHC 34.7 (31.0-37.0) g/dL RDW Std Deviation 48.4 (28.0-62.0) fl RDW Coeff of Mao 15 (11.0-15.0) % Plt Count 646 H (150-400) K/uL MPV 10.00 (7.40-12.00) fL Neut % (Auto) 64.1 (48.0-80.0) % Lymph % (Auto) 24.2 (16.0-40.0) % [place] % (Auto) 9.7 (0.0-15.0) % Eos % (Auto) 1.5 (0.0-7.0) % Baso % (Auto) 0.5 (0.0-1.5) % Neut # (Auto) 8.2 H (1.4-5.7) K/uL Lymph # (Auto) 3.1 H (0.6-2.4) K/uL [place] # (Auto) 1.2 H (0.0-0.8) K/uL Eos # (Auto) 0.2 (0.0-0.7) K/uL Baso # (Auto) 0.1 (0.0-0.1) K/uL Nucleated RBC % 0.0 /100WBC Nucleated RBCs # 0 K/uL Lactate 2.0 (0.20-2.00) mmol/L Sodium 137 (136-148) mmol/L Potassium 4.3 (3.5-5.1) mmol/L Chloride 102 (98-107) mmol/L Carbon Dioxide 18.5 L (21.0-32.0) mmol/L BUN 28 H (7.0-18.0) mg/dL Creatinine 1.2 (0.8-1.3) mg/dL Est Cr Clr Drug Dosing 55.94 mL/min Estimated GFR (MDRD) > 60.0 ml/min Glucose 98 (74-106) mg/dL Calcium 9.3 (8.5-10.1) mg/dL Total Bilirubin 0.4 (0.2-1.0) mg/dL AST 48 H (15-37) IU/L ALT 37 (14-63) IU/L Alkaline Phosphatase 138 H (46-116) U/L Troponin I < 0.050 (0.000-0.056) ng/mL Total Protein 8.0 (6.4-8.2) g/dL Albumin 3.1 L (3.4-5.0) g/dL Globulin 4.9 H (2.6-4.0) g/dL Albumin/Globulin Ratio 0.6 L (0.9-1.6) Result Diagrams: 02/08/19 09:20 02/08/19 09:20 Kristofer Results Last 24 hrs: Microbiology 02/08/19 09:30 Anaerobic Blood Culture - Final Blood - Venous - Lab Draw Orders Last 24hrs: Active Orders 24 hr Category Date Time Status Admission Status [Patient Status] [ADT] Stat ADT 02/08/19 10:51 Active EKG Documentation Completion [RC] STAT Care 02/08/19 09:12 Active Orthostatic Vital Signs [RC] ASDIRECTED Care 02/08/19 09:12 Active Oxygen Therapy [RC] PRN Care 02/08/19 11:21 Active Telemetry Monitoring [Cardiac Monitoring] [RC] Q8H Care 02/08/19 11:02 Active Up ad Funmi [RC] ASDIRECTED Care 02/08/19 11:21 Active VTE/DVT Education [RC] PER UNIT ROUTINE Care 02/08/19 11:21 Active Vital Signs [RC] Q4H Care 02/08/19 11:21 Active Nothing per Oral Now Diet [DIET] Diet 02/08/19 Dinner Active CBC WITH AUTO DIFF [HEME] AM Lab 02/09/19 05:11 Ordered COMPREHENSIVE METABOLIC PN,CMP [CHEM] AM Lab 02/09/19 05:11 Ordered CULTURE BLOOD [BC] Stat Lab 02/08/19 09:20 Received CULTURE BLOOD [BC] Stat Lab 02/08/19 09:30 Results Enoxaparin [Lovenox] Med 02/08/19 11:30 Active 40 mg SUBCUT Q24H HYDROmorphone [Dilaudid] Med 02/08/19 16:32 Active 1 mg IVPUSH Q6H PRN Lisinopril [Prinivil] Med 02/08/19 21:00 Active 10 mg PO BEDTIME Metoclopramide [Reglan] Med 02/08/19 16:11 Active 10 mg IVPUSH Q6H PRN Ondansetron [Zofran ODT] Med 02/08/19 11:21 Active 4 mg PO Q4H PRN Pregabalin [Lyrica] Med 02/08/19 21:00 Active 150 mg PO BID QUEtiapine [SEROquel] Med 02/08/19 21:00 Active 50 mg PO BEDTIME Sertraline [Zoloft] Med 02/08/19 21:00 Active 50 mg PO BEDTIME Sodium Chloride 0.9% [Normal Saline] 1,000 ml Med 02/08/19 11:30 Active IV ASDIRECTED Tolterodine [Detrol LA 24 Hr] Med 02/09/19 09:00 Active 4 mg PO DAILY traZODone Med 02/08/19 21:00 Active 50 mg PO BEDTIME Blood Culture x2 Reflex Set [OM.PC] Stat Oth 02/08/19 09:12 Ordered Resuscitation Status Routine Resus Stat 02/08/19 11:21 Ordered Medication Orders Enoxaparin Sodium (Lovenox) 40 mg SUBCUT Q24H [facility] Last Admin: 02/08/19 11:46 Dose: 40 mg Hydromorphone HCl (Dilaudid) 1 mg IVPUSH Q6H PRN PRN Reason: Pain Sodium Chloride (Normal Saline) 1,000 mls @ 175 mls/hr IV ASDIRECTED SEAN Stop: 02/09/19 17:13 Last Admin: 02/08/19 11:46 Dose: 175 mls/hr Lisinopril (Prinivil) 10 mg PO BEDTIME SE[facility] Metoclopramide HCl (Reglan) 10 mg IVPUSH Q6H PRN PRN Reason: Nausea Ondansetron HCl (Zofran Odt) 4 mg PO Q4H PRN PRN Reason: nausea, able to take PO Last Admin: 02/08/19 16:37 Dose: 4 mg Pregabalin (Lyrica) 150 mg PO BID [facility] Quetiapine Fumarate (Seroquel) 50 mg PO BEDTIME [facility] Sertraline HCl (Zoloft) 50 mg PO BEDTIME [facility] Tolterodine Tartrate (Detrol La 24 Hr) 4 mg PO DAILY [facility] Trazodone HCl (Trazodone) 50 mg PO BEDTIME [facility]
[2019-02-08] MEDS ORDERED: Metoclopramide 10 MG/2 ML SDV IVPUSH PRN (16:11)
[2019-02-08] MEDS ORDERED: Labetalol 100 MG/20 ML MDV IVPUSH ONE (16:13)
[2019-02-08] MEDS: HYDROmorphone 1 MG/ML Syringe IVPUSH PRN ×2 (17:01→23:16)
[2019-02-08] MEDS: Piperacillin/Tazobactam 3.375 GM in Sodium Chloride 0.9% 50 ML IV SCH ×2 (17:06→23:16)
[2019-02-08] MEDS ORDERED: Amoxicillin/Clavulanate K 875-125 MG Tab PO SCH (18:00)
[2019-02-08] MEDS ORDERED: Lisinopril 10 MG Tab PO SCH (21:00)
[2019-02-08] MEDS: Pregabalin 75 MG Cap PO SCH (21:00)
[2019-02-08] MEDS ORDERED: traZODone 50 MG Tab PO SCH (21:00)
[2019-02-08] MEDS ORDERED: Sertraline 50 MG Tab PO SCH (21:00)
[2019-02-09] MEDS: Piperacillin/Tazobactam 3.375 GM in Sodium Chloride 0.9% 50 ML IV SCH ×2 (04:48→10:59)
[2019-02-09] MEDS: HYDROmorphone 1 MG/ML Syringe IVPUSH PRN ×2 (05:24→11:48)
[2019-02-09 05:50] LABS: BLOOD UREA NITROGEN,BUN 24 mg/dL (7.0-18.0); CARBON DIOXIDE,CO2 23.5 mmol/L (21.0-32.0); CHLORIDE,CL 109 mmol/L (98-107); GLUCOSE RANDOM 102 mg/dL (74-106); POTASSIUM,K 3.9 mmol/L (3.5-5.1); SODIUM,NA 141 mmol/L (136-148)
[2019-02-09] MEDS ORDERED: cefTRIAXone 2 GM in Premix Bag 1 BAG IV SCH (07:45)
[2019-02-09 07:46] VITALS: BP 139/78; PULSE 63
--- NOTE | 2019-02-09 08:53 | PCM.PN ---
<Aleksandar Dorman - Last Filed: 02/09/19 08:53> - General Info Date of Service: 02/09/19 Subjective Update: 68 y/o male s/p right 2nd metatarsal debridement at [facility] who was admitted for nausea and vomiting. This morning he is feeling much better he states. No vomiting, chest pain, dyspnea, abdominal pain. He will be trying full liquid today. - Patient Data Vitals - Most Recent: Last Vital Signs Temp 36.9 C 02/09/19 07:45 Pulse 63 02/09/19 07:45 Resp 16 02/09/19 07:45 BP 139/78 02/09/19 07:45 Pulse Ox 95 02/09/19 07:45 Orthostatic Blood Pressure [ 157/88 Standing] Orthostatic Blood Pressure [ 174/87 Sitting] Orthostatic Blood Pressure [ 174/78 Supine] Weight - Most Recent: 62.369 kg I&O - Last 24 Hours: Intake & Output 02/08/19 02/09/19 02/09/19 22:59 06:59 14:59 Intake Total 703 1625 Output Total 0 250 Balance 703 1375 Lab Results Last 24 Hours: Laboratory Results - last 24 hr 02/08/19 02/08/19 02/08/19 Range/Units 09:20 09:20 09:20 WBC 12.81 H (4.0-11.0) K/uL RBC 4.25 L (4.50-5.90) M/uL Hgb 13.3 (13.0-17.0) g/dL Hct 38.3 (38.0-50.0) % MCV 90.1 (80.0-98.0) fL MCH 31.3 (27.0-32.0) pg MCHC 34.7 (31.0-37.0) g/dL RDW Std Deviation 48.4 (28.0-62.0) fl RDW Coeff of Mao 15 (11.0-15.0) % Plt Count 646 H (150-400) K/uL MPV 10.00 (7.40-12.00) fL Neut % (Auto) 64.1 (48.0-80.0) % Lymph % (Auto) 24.2 (16.0-40.0) % [place]ger % (Auto) 9.7 (0.0-15.0) % Eos % (Auto) 1.5 (0.0-7.0) % Baso % (Auto) 0.5 (0.0-1.5) % Neut # (Auto) 8.2 H (1.4-5.7) K/uL Lymph # (Auto) 3.1 H (0.6-2.4) K/uL Wilbarger # (Auto) 1.2 H (0.0-0.8) K/uL Eos # (Auto) 0.2 (0.0-0.7) K/uL Baso # (Auto) 0.1 (0.0-0.1) K/uL Add Manual Diff Neutrophils % (Manual) (48.0-80.0) % Band Neutrophils % % Lymphocytes % (Manual) (16.0-40.0) % Monocytes % (Manual) (0.0-15.0) % Basophils % (Manual) (0.0-1.5) % Nucleated RBC % 0.0 /100WBC Absolute Seg Neuts (1.4-5.7) Band Neutrophils # Lymphocytes # (Manual) (0.6-2.4) Monocytes # (Manual) (0.0-0.8) Basophils # (Manual) (0.0-0.1) Nucleated RBCs # 0 K/uL Lactate 2.0 (0.20-2.00) mmol/L Sodium 137 (136-148) mmol/L Potassium 4.3 (3.5-5.1) mmol/L Chloride 102 (98-107) mmol/L Carbon Dioxide 18.5 L (21.0-32.0) mmol/L BUN 28 H (7.0-18.0) mg/dL Creatinine 1.2 (0.8-1.3) mg/dL Est Cr Clr Drug Dosing 55.94 mL/min Estimated GFR (MDRD) > 60.0 ml/min Glucose 98 (74-106) mg/dL Calcium 9.3 (8.5-10.1) mg/dL Total Bilirubin 0.4 (0.2-1.0) mg/dL AST 48 H (15-37) IU/L ALT 37 (14-63) IU/L Alkaline Phosphatase 138 H (46-116) U/L Troponin I < 0.050 (0.000-0.056) ng/mL Total Protein 8.0 (6.4-8.2) g/dL Albumin 3.1 L (3.4-5.0) g/dL Globulin 4.9 H (2.6-4.0) g/dL Albumin/Globulin Ratio 0.6 L (0.9-1.6) 02/09/19 02/09/19 Range/Units 04:45 04:45 WBC 13.03 H (4.0-11.0) K/uL RBC 3.53 L (4.50-5.90) M/uL Hgb 11.1 L (13.0-17.0) g/dL Hct 32.3 L (38.0-50.0) % MCV 91.5 (80.0-98.0) fL MCH 31.4 (27.0-32.0) pg MCHC 34.4 (31.0-37.0) g/dL RDW Std Deviation 49.2 (28.0-62.0) fl RDW Coeff of Mao 15 (11.0-15.0) % Plt Count 558 H (150-400) K/uL MPV 10.00 (7.40-12.00) fL Neut % (Auto) (48.0-80.0) % Lymph % (Auto) (16.0-40.0) % Wilbarger % (Auto) (0.0-15.0) % Eos % (Auto) (0.0-7.0) % Baso % (Auto) (0.0-1.5) % Neut # (Auto) (1.4-5.7) K/uL Lymph # (Auto) (0.6-2.4) K/uL [place] # (Auto) (0.0-0.8) K/uL Eos # (Auto) (0.0-0.7) K/uL Baso # (Auto) (0.0-0.1) K/uL Add Manual Diff YES Neutrophils % (Manual) 54 (48.0-80.0) % Band Neutrophils % 1 % Lymphocytes % (Manual) 39 (16.0-40.0) % Monocytes % (Manual) 5 (0.0-15.0) % Basophils % (Manual) 1 (0.0-1.5) % Nucleated RBC % 0.0 /100WBC Absolute Seg Neuts 7.0 H (1.4-5.7) Band Neutrophils # 0.1 Lymphocytes # (Manual) 5.1 H (0.6-2.4) Monocytes # (Manual) 0.7 (0.0-0.8) Basophils # (Manual) 0.1 (0.0-0.1) Nucleated RBCs # 0 K/uL Lactate (0.20-2.00) mmol/L Sodium 141 (136-148) mmol/L Potassium 3.9 (3.5-5.1) mmol/L Chloride 109 H (98-107) mmol/L Carbon Dioxide 23.5 (21.0-32.0) mmol/L BUN 24 H (7.0-18.0) mg/dL Creatinine 1.0 (0.8-1.3) mg/dL Est Cr Clr Drug Dosing 64.10 mL/min Estimated GFR (MDRD) > 60.0 ml/min Glucose 102 (74-106) mg/dL Calcium 8.1 L (8.5-10.1) mg/dL Total Bilirubin 0.3 (0.2-1.0) mg/dL AST 29 (15-37) IU/L ALT 29 (14-63) IU/L Alkaline Phosphatase 102 (46-116) U/L Troponin I (0.000-0.056) ng/mL Total Protein 6.5 (6.4-8.2) g/dL Albumin 2.5 L (3.4-5.0) g/dL Globulin 4.0 (2.6-4.0) g/dL Albumin/Globulin Ratio 0.6 L (0.9-1.6) Kristofer Results Last 24 Hours: Microbiology 02/08/19 09:30 Anaerobic Blood Culture - Final Blood - Venous - Lab Draw Med Orders - Current: Current Medications Enoxaparin Sodium (Lovenox) 40 mg SUBCUT Q24H SEAN Last Admin: 02/08/19 11:46 Dose: 40 mg Hydromorphone HCl (Dilaudid) 1 mg IVPUSH Q6H PRN PRN Reason: Pain Last Admin: 02/09/19 05:24 Dose: 1 mg Sodium Chloride (Normal Saline) 1,000 mls @ 175 mls/hr IV ASDIRECTED [facility] Stop: 02/09/19 17:13 Last Admin: 02/08/19 18:06 Dose: 175 mls/hr Piperacillin Sod/Tazobactam (Sod 3.375 gm/ Sodium Chloride) 50 mls @ 100 mls/ hr IV Q6H SE[facility] Last Admin: 02/09/19 04:48 Dose: 100 mls/hr Ceftriaxone Sodium/Dextrose 2 (gm/ Premix) 50 mls @ 100 mls/hr IV Q24H [facility] Lisinopril (Prinivil) 10 mg PO BEDTIME [facility] Last Admin: 02/08/19 20:59 Dose: 10 mg Metoclopramide HCl (Reglan) 10 mg IVPUSH Q6H PRN PRN Reason: Nausea Ondansetron HCl (Zofran Odt) 4 mg PO Q4H PRN PRN Reason: nausea, able to take PO Last Admin: 02/08/19 16:37 Dose: 4 mg Pregabalin (Lyrica) 150 mg PO BID [facility] Last Admin: 02/08/19 21:00 Dose: 150 mg Quetiapine Fumarate (Seroquel) 50 mg PO BEDTIME [facility] Last Admin: 02/08/19 20:59 Dose: 50 mg Sertraline HCl (Zoloft) 50 mg PO BEDTIME [facility] Last Admin: 02/08/19 21:00 Dose: 50 mg Tolterodine Tartrate (Detrol La 24 Hr) 4 mg PO DAILY [facility] Trazodone HCl (Trazodone) 50 mg PO BEDTIME [facility] Last Admin: 02/08/19 21:00 Dose: 50 mg Discontinued Medications Sodium Chloride (Normal Saline) 1,000 mls @ 999 mls/hr IV STAT ONE Stop: 02/08/19 10:12 Last Admin: 02/08/19 09:37 Dose: 999 mls/hr Ceftriaxone Sodium/Dextrose 2 (gm/ Premix) 50 mls @ 100 mls/hr IV ONETIME ONE Stop: 02/08/19 10:46 Last Admin: 02/08/19 10:32 Dose: 100 mls/hr Labetalol HCl (Normodyne) 20 mg IVPUSH ONETIME ONE; Protocol Stop: 02/08/19 16:14 Last Admin: 02/08/19 16:58 Dose: Not Given Lorazepam (Ativan) 1 mg IVPUSH ONETIME ONE Stop: 02/08/19 10:42 Last Admin: 02/08/19 10:53 Dose: 1 mg Lorazepam (Ativan) 1 mg IVPUSH ONETIME ONE Stop: 02/08/19 12:09 Last Admin: 02/08/19 12:34 Dose: 1 mg Metoclopramide HCl (Reglan) 5 mg IVPUSH ONETIME ONE Stop: 02/08/19 13:20 Last Admin: 02/08/19 13:30 Dose: 5 mg Ondansetron HCl (Zofran) 4 mg IVPUSH ONETIME ONE Stop: 02/08/19 09:13 Last Admin: 02/08/19 09:48 Dose: 4 mg Ondansetron HCl (Zofran) 4 mg IVPUSH Q4H PRN PRN Reason: Nausea Temazepam (Restoril) 15 mg PO BEDTIME PRN PRN Reason: Sleep - Exam General: Alert, Oriented, Cooperative, No Acute Distress Lungs: Clear to Auscultation, Normal Respiratory Effort Cardiovascular: Regular Rate, Regular Rhythm GI/Abdominal Exam: Normal Bowel Sounds, Soft, Non-Tender Extremities: Other (bilateral toe amputations, no drainage) Skin: Warm, Dry - Problem List Review Problem List Initiated/Reviewed/Updated: Yes - My Orders Last 24 Hours: My Active Orders 02/08/19 11:21 Oxygen Therapy [RC] PRN Up ad Funmi [RC] ASDIRECTED VTE/DVT Education [RC] PER UNIT ROUTINE Vital Signs [RC] Q4H Ondansetron [Zofran ODT] 4 mg PO Q4H PRN Resuscitation Status Routine 02/08/19 11:30 Enoxaparin [Lovenox] 40 mg SUBCUT Q24H Sodium Chloride 0.9% [Normal Saline] 1,000 ml IV ASDIRECTED 02/08/19 16:11 Metoclopramide [Reglan] 10 mg IVPUSH Q6H PRN 02/08/19 16:32 HYDROmorphone [Dilaudid] 1 mg IVPUSH Q6H PRN 02/08/19 17:00 Piperacillin/Tazobactam [Piperacil-Tazobact] 3.375 gm Sodium Chloride 0.9% [ Normal Saline] 50 ml IV Q6H 02/08/19 21:00 Lisinopril [Prinivil] 10 mg PO BEDTIME Pregabalin [Lyrica] 150 mg PO BID QUEtiapine [SEROquel] 50 mg PO BEDTIME Sertraline [Zoloft] 50 mg PO BEDTIME traZODone 50 mg PO BEDTIME 02/09/19 07:45 cefTRIAXone [Rocephin in Dextrose,Iso-Osm 2 GM/50 ML] 2 gm Premix Bag 1 bag IV Q24H 02/09/19 09:00 Tolterodine [Detrol LA 24 Hr] 4 mg PO DAILY 02/09/19 Breakfast Advance Diet Instructions [DIET] 02/09/19 Lunch Full Liquid Diet [DIET] - Plan Plan:: A: 1. Nausea, vomiting, improved 2. 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 Leukocytosis 4. History of depression, neuropathy, hypertension P: 1. Nausea, vomiting. Improved. Advance diet as tolerated and if tolerating he may possibly be discharged later today. 2. History of osteomyelitis of right 2nd metatarsal- will continue with ceftriaxone 2g IV daily. Changed Augmentin to Zosyn due to nausea. 3. Leukocytosis, stable. Likely reactive. Patient had WBC of 13 at time of discharge from [facility] on 02/06/19. Afebrile. Dispo: plan to DC later today if tolerating diet <Dave Jules - Last Filed: 02/09/19 10:55> - General Info Admission Dx/Problem (Free Text): I have seen and examined the patient independently of Dr. Sandy MD. I have reviewed and agree with the plan of care as outlined by Dr. Delgado and agree with the plan as outlined by this resident. I have discussed the case with the resident. Please see orders. - Patient Data Vitals - Most Recent: Last Vital Signs Temp 36.9 C 02/09/19 07:45 Pulse 63 02/09/19 07:45 Resp 16 02/09/19 07:45 BP 139/78 02/09/19 07:45 Pulse Ox 95 02/09/19 07:45 Orthostatic Blood Pressure [ 157/88 Standing] Orthostatic Blood Pressure [ 174/87 Sitting] Orthostatic Blood Pressure [ 174/78 Supine] I&O - Last 24 Hours: Intake & Output 02/08/19 02/09/19 02/09/19 22:59 06:59 14:59 Intake Total 703 1625 50 Output Total 0 250 Balance 703 1375 50 Lab Results Last 24 Hours: Laboratory Results - last 24 hr 02/09/19 02/09/19 Range/Units 04:45 04:45 WBC 13.03 H (4.0-11.0) K/uL RBC 3.53 L (4.50-5.90) M/uL Hgb 11.1 L (13.0-17.0) g/dL Hct 32.3 L (38.0-50.0) % MCV 91.5 (80.0-98.0) fL MCH 31.4 (27.0-32.0) pg MCHC 34.4 (31.0-37.0) g/dL RDW Std Deviation 49.2 (28.0-62.0) fl RDW Coeff of Mao 15 (11.0-15.0) % Plt Count 558 H (150-400) K/uL MPV 10.00 (7.40-12.00) fL Add Manual Diff YES Neutrophils % (Manual) 54 (48.0-80.0) % Band Neutrophils % 1 % Lymphocytes % (Manual) 39 (16.0-40.0) % Monocytes % (Manual) 5 (0.0-15.0) % Basophils % (Manual) 1 (0.0-1.5) % Nucleated RBC % 0.0 /100WBC Absolute Seg Neuts 7.0 H (1.4-5.7) Band Neutrophils # 0.1 Lymphocytes # (Manual) 5.1 H (0.6-2.4) Monocytes # (Manual) 0.7 (0.0-0.8) Basophils # (Manual) 0.1 (0.0-0.1) Nucleated RBCs # 0 K/uL Sodium 141 (136-148) mmol/L Potassium 3.9 (3.5-5.1) mmol/L Chloride 109 H (98-107) mmol/L Carbon Dioxide 23.5 (21.0-32.0) mmol/L BUN 24 H (7.0-18.0) mg/dL Creatinine 1.0 (0.8-1.3) mg/dL Est Cr Clr Drug Dosing 64.10 mL/min Estimated GFR (MDRD) > 60.0 ml/min Glucose 102 (74-106) mg/dL Calcium 8.1 L (8.5-10.1) mg/dL Total Bilirubin 0.3 (0.2-1.0) mg/dL AST 29 (15-37) IU/L ALT 29 (14-63) IU/L Alkaline Phosphatase 102 (46-116) U/L Total Protein 6.5 (6.4-8.2) g/dL Albumin 2.5 L (3.4-5.0) g/dL Globulin 4.0 (2.6-4.0) g/dL Albumin/Globulin Ratio 0.6 L (0.9-1.6) Kristofer Results Last 24 Hours: Microbiology 02/08/19 09:30 Aerobic Blood Culture - Preliminary Blood - Venous - Lab Draw NO GROWTH AFTER 1 DAY Anaerobic Blood Culture - Final 02/08/19 09:20 Aerobic Blood Culture - Preliminary Blood - Venous NO GROWTH AFTER 1 DAY Anaerobic Blood Culture - Preliminary NO GROWTH AFTER 1 DAY Med Orders - Current: Current Medications Enoxaparin Sodium (Lovenox) 40 mg SUBCUT Q24H [facility] Last Admin: 02/08/19 11:46 Dose: 40 mg Hydromorphone HCl (Dilaudid) 1 mg IVPUSH Q6H PRN PRN Reason: Pain Last Admin: 02/09/19 05:24 Dose: 1 mg Sodium Chloride (Normal Saline) 1,000 mls @ 175 mls/hr IV ASDIRECTED [facility] Stop: 02/09/19 17:13 Last Admin: 02/08/19 18:06 Dose: 175 mls/hr Piperacillin Sod/Tazobactam (Sod 3.375 gm/ Sodium Chloride) 50 mls @ 100 mls/ hr IV Q6H [facility] Last Admin: 02/09/19 04:48 Dose: 100 mls/hr Ceftriaxone Sodium/Dextrose 2 (gm/ Premix) 50 mls @ 100 mls/hr IV Q24H [facility] Last Admin: 02/09/19 09:28 Dose: 100 mls/hr Lisinopril (Prinivil) 10 mg PO BEDTIME [facility] Last Admin: 02/08/19 20:59 Dose: 10 mg Metoclopramide HCl (Reglan) 10 mg IVPUSH Q6H PRN PRN Reason: Nausea Ondansetron HCl (Zofran Odt) 4 mg PO Q4H PRN PRN Reason: nausea, able to take PO Last Admin: 02/08/19 16:37 Dose: 4 mg Pregabalin (Lyrica) 150 mg PO BID [facility] Last Admin: 02/09/19 09:26 Dose: 150 mg Quetiapine Fumarate (Seroquel) 50 mg PO BEDTIME [facility] Last Admin: 02/08/19 20:59 Dose: 50 mg Sertraline HCl (Zoloft) 50 mg PO BEDTIME [facility] Last Admin: 02/08/19 21:00 Dose: 50 mg Tolterodine Tartrate (Detrol La 24 Hr) 4 mg PO DAILY [facility] Last Admin: 02/09/19 09:27 Dose: 4 mg Trazodone HCl (Trazodone) 50 mg PO BEDTIME [facility] Last Admin: 02/08/19 21:00 Dose: 50 mg Discontinued Medications Sodium Chloride (Normal Saline) 1,000 mls @ 999 mls/hr IV STAT ONE Stop: 02/08/19 10:12 Last Admin: 02/08/19 09:37 Dose: 999 mls/hr Ceftriaxone Sodium/Dextrose 2 (gm/ Premix) 50 mls @ 100 mls/hr IV ONETIME ONE Stop: 02/08/19 10:46 Last Admin: 02/08/19 10:32 Dose: 100 mls/hr Labetalol HCl (Normodyne) 20 mg IVPUSH ONETIME ONE; Protocol Stop: 02/08/19 16:14 Last Admin: 02/08/19 16:58 Dose: Not Given Lorazepam (Ativan) 1 mg IVPUSH ONETIME ONE Stop: 02/08/19 10:42 Last Admin: 02/08/19 10:53 Dose: 1 mg Lorazepam (Ativan) 1 mg IVPUSH ONETIME ONE Stop: 02/08/19 12:09 Last Admin: 02/08/19 12:34 Dose: 1 mg Metoclopramide HCl (Reglan) 5 mg IVPUSH ONETIME ONE Stop: 02/08/19 13:20 Last Admin: 02/08/19 13:30 Dose: 5 mg Ondansetron HCl (Zofran) 4 mg IVPUSH ONETIME ONE Stop: 02/08/19 09:13 Last Admin: 02/08/19 09:48 Dose: 4 mg Ondansetron HCl (Zofran) 4 mg IVPUSH Q4H PRN PRN Reason: Nausea Temazepam (Restoril) 15 mg PO BEDTIME PRN PRN Reason: Sleep - My Orders Last 24 Hours: My Active Orders 02/08/19 11:02 Telemetry Monitoring [Cardiac Monitoring] [RC] Q8H
[2019-02-09] MEDS ORDERED: Tolterodine 2 MG Cap.ER PO SCH (09:00)
[2019-02-09] MEDS: Pregabalin 75 MG Cap PO SCH (09:26)
--- NOTE | 2019-02-09 10:57 | PCM.DCSUM1 ---
<Aleksandar Dorman - Last Filed: 02/09/19 10:53> Discharge Summary - Hospital Course Free Text/Narrative:: 68 y/o male with history of neuropathy s/p bilateral toe amputations who presented to the ED complaining of nausea and vomiting. He was recently hospitalized at [facility] for suspected osteomyelitis of right foot. He underwent debridement of right 2nd metatarsal. Was started on IV antibiotics which included ceftriaxone and augmenting as outpatient. During this hospitalization, he did relatively well. He was hydrated with IV NS and that seemed to resolve his symptoms. His outpatient antibiotics were resumed during this hospitalization. He was advised to follow-up with his PCP in 1-2 weeks. - Discharge Data Discharge Date: 02/09/19 Discharge Disposition: Home, Self-Care 01 Condition: Fair - Patient Instructions Diet: Regular Diet as Tolerated, Drink 8-10+ Glasses/Day Activity: As Tolerated Notify Provider of: Fever, Increased Pain, Swelling and Redness, Drainage, Nausea and/or Vomiting - Discharge Plan *PRESCRIPTION DRUG MONITORING PROGRAM REVIEWED*: Not Applicable *COPY OF PRESCRIPTION DRUG MONITORING REPORT IN PATIENT MICHEAL: Not Applicable Home Medications: Home Meds Lisinopril 10 mg PO BEDTIME 05/02/16 [History] Pregabalin [Lyrica] 150 mg PO BID 05/02/16 [History] Tolterodine Tartrate [Detrol LA] 4 mg PO DAILY 05/02/16 [History] Amoxicillin/Potassium Clav [Amox-Clav 875-125 mg Tablet] 1 tab PO Q12H 02/08/19 [History] Hydrocodone/Acetaminophen [[place] 5-325 Tablet] 5 - 325 mg PO Q6HR PRN 02/08/19 [ History] Meloxicam 7.5 mg PO DAILY 02/08/19 [History] Metoprolol Tartrate 50 mg PO DAILY 02/08/19 [History] QUEtiapine [SEROquel] 50 mg PO BEDTIME 02/08/19 [History] Sertraline [Zoloft] 50 mg PO BEDTIME 02/08/19 [History] traZODone HCl [Trazodone HCl] 50 mg PO BEDTIME 02/08/19 [History] Patient Handouts: Syncope, [id number] Referrals: Star Jacob MD [Ordering Only Provider] - 02/12/19 10:45 am - Discharge Summary/Plan Comment DC Time >30 min.: No - Patient Data Vitals - Most Recent: Last Vital Signs Temp 36.9 C 02/09/19 07:45 Pulse 63 02/09/19 07:45 Resp 16 02/09/19 07:45 BP 139/78 02/09/19 07:45 Pulse Ox 95 02/09/19 07:45 Orthostatic Blood Pressure [ 157/88 Standing] Orthostatic Blood Pressure [ 174/87 Sitting] Orthostatic Blood Pressure [ 174/78 Supine] Weight - Most Recent: 62.369 kg I&O - Last 24 hours: Intake & Output 02/08/19 02/09/19 02/09/19 22:59 06:59 14:59 Intake Total 703 1625 50 Output Total 0 250 Balance 703 1375 50 Lab Results - Last 24 hrs: Laboratory Results - last 24 hr 02/09/19 02/09/19 Range/Units 04:45 04:45 WBC 13.03 H (4.0-11.0) K/uL RBC 3.53 L (4.50-5.90) M/uL Hgb 11.1 L (13.0-17.0) g/dL Hct 32.3 L (38.0-50.0) % MCV 91.5 (80.0-98.0) fL MCH 31.4 (27.0-32.0) pg MCHC 34.4 (31.0-37.0) g/dL RDW Std Deviation 49.2 (28.0-62.0) fl RDW Coeff of Mao 15 (11.0-15.0) % Plt Count 558 H (150-400) K/uL MPV 10.00 (7.40-12.00) fL Add Manual Diff YES Neutrophils % (Manual) 54 (48.0-80.0) % Band Neutrophils % 1 % Lymphocytes % (Manual) 39 (16.0-40.0) % Monocytes % (Manual) 5 (0.0-15.0) % Basophils % (Manual) 1 (0.0-1.5) % Nucleated RBC % 0.0 /100WBC Absolute Seg Neuts 7.0 H (1.4-5.7) Band Neutrophils # 0.1 Lymphocytes # (Manual) 5.1 H (0.6-2.4) Monocytes # (Manual) 0.7 (0.0-0.8) Basophils # (Manual) 0.1 (0.0-0.1) Nucleated RBCs # 0 K/uL Sodium 141 (136-148) mmol/L Potassium 3.9 (3.5-5.1) mmol/L Chloride 109 H (98-107) mmol/L Carbon Dioxide 23.5 (21.0-32.0) mmol/L BUN 24 H (7.0-18.0) mg/dL Creatinine 1.0 (0.8-1.3) mg/dL Est Cr Clr Drug Dosing 64.10 mL/min Estimated GFR (MDRD) > 60.0 ml/min Glucose 102 (74-106) mg/dL Calcium 8.1 L (8.5-10.1) mg/dL Total Bilirubin 0.3 (0.2-1.0) mg/dL AST 29 (15-37) IU/L ALT 29 (14-63) IU/L Alkaline Phosphatase 102 (46-116) U/L Total Protein 6.5 (6.4-8.2) g/dL Albumin 2.5 L (3.4-5.0) g/dL Globulin 4.0 (2.6-4.0) g/dL Albumin/Globulin Ratio 0.6 L (0.9-1.6) MEAGAN Results - Last 24 hrs: Microbiology 02/08/19 09:30 Aerobic Blood Culture - Preliminary Blood - Venous - Lab Draw NO GROWTH AFTER 1 DAY Anaerobic Blood Culture - Final 02/08/19 09:20 Aerobic Blood Culture - Preliminary Blood - Venous NO GROWTH AFTER 1 DAY Anaerobic Blood Culture - Preliminary NO GROWTH AFTER 1 DAY Med Orders - Current: Current Medications Enoxaparin Sodium (Lovenox) 40 mg SUBCUT Q24H SE[facility] Last Admin: 02/08/19 11:46 Dose: 40 mg Hydromorphone HCl (Dilaudid) 1 mg IVPUSH Q6H PRN PRN Reason: Pain Last Admin: 02/09/19 05:24 Dose: 1 mg Sodium Chloride (Normal Saline) 1,000 mls @ 175 mls/hr IV ASDIRECTED SEAN Stop: 02/09/19 17:13 Last Admin: 02/08/19 18:06 Dose: 175 mls/hr Piperacillin Sod/Tazobactam (Sod 3.375 gm/ Sodium Chloride) 50 mls @ 100 mls/ hr IV Q6H [facility] Last Admin: 02/09/19 04:48 Dose: 100 mls/hr Ceftriaxone Sodium/Dextrose 2 (gm/ Premix) 50 mls @ 100 mls/hr IV Q24H SEAN Last Admin: 02/09/19 09:28 Dose: 100 mls/hr Lisinopril (Prinivil) 10 mg PO BEDTIME SEAN Last Admin: 02/08/19 20:59 Dose: 10 mg Metoclopramide HCl (Reglan) 10 mg IVPUSH Q6H PRN PRN Reason: Nausea Ondansetron HCl (Zofran Odt) 4 mg PO Q4H PRN PRN Reason: nausea, able to take PO Last Admin: 02/08/19 16:37 Dose: 4 mg Pregabalin (Lyrica) 150 mg PO BID [facility] Last Admin: 02/09/19 09:26 Dose: 150 mg Quetiapine Fumarate (Seroquel) 50 mg PO BEDTIME [facility] Last Admin: 02/08/19 20:59 Dose: 50 mg Sertraline HCl (Zoloft) 50 mg PO BEDTIME [facility] Last Admin: 02/08/19 21:00 Dose: 50 mg Tolterodine Tartrate (Detrol La 24 Hr) 4 mg PO DAILY [facility] Last Admin: 02/09/19 09:27 Dose: 4 mg Trazodone HCl (Trazodone) 50 mg PO BEDTIME [facility] Last Admin: 02/08/19 21:00 Dose: 50 mg Discontinued Medications Sodium Chloride (Normal Saline) 1,000 mls @ 999 mls/hr IV STAT ONE Stop: 02/08/19 10:12 Last Admin: 02/08/19 09:37 Dose: 999 mls/hr Ceftriaxone Sodium/Dextrose 2 (gm/ Premix) 50 mls @ 100 mls/hr IV ONETIME ONE Stop: 02/08/19 10:46 Last Admin: 02/08/19 10:32 Dose: 100 mls/hr Labetalol HCl (Normodyne) 20 mg IVPUSH ONETIME ONE; Protocol Stop: 02/08/19 16:14 Last Admin: 02/08/19 16:58 Dose: Not Given Lorazepam (Ativan) 1 mg IVPUSH ONETIME ONE Stop: 02/08/19 10:42 Last Admin: 02/08/19 10:53 Dose: 1 mg Lorazepam (Ativan) 1 mg IVPUSH ONETIME ONE Stop: 02/08/19 12:09 Last Admin: 02/08/19 12:34 Dose: 1 mg Metoclopramide HCl (Reglan) 5 mg IVPUSH ONETIME ONE Stop: 02/08/19 13:20 Last Admin: 02/08/19 13:30 Dose: 5 mg Ondansetron HCl (Zofran) 4 mg IVPUSH ONETIME ONE Stop: 02/08/19 09:13 Last Admin: 02/08/19 09:48 Dose: 4 mg Ondansetron HCl (Zofran) 4 mg IVPUSH Q4H PRN PRN Reason: Nausea Temazepam (Restoril) 15 mg PO BEDTIME PRN PRN Reason: Sleep <Dave Jules - Last Filed: 02/09/19 11:28> Discharge Summary - Hospital Course HPI Initial Comments: I have seen and examined the patient independently of Dr. Sandy MD. I have reviewed and agree with the plan of care as outlined by Dr. Delgado and agree with the plan as outlined by this resident. I have discussed the case with the resident. Please see orders. - Patient Data Vitals - Most Recent: Last Vital Signs Temp 36.9 C 02/09/19 07:45 Pulse 63 02/09/19 07:45 Resp 16 02/09/19 07:45 BP 139/78 02/09/19 07:45 Pulse Ox 95 02/09/19 07:45 Orthostatic Blood Pressure [ 157/88 Standing] Orthostatic Blood Pressure [ 174/87 Sitting] Orthostatic Blood Pressure [ 174/78 Supine] I&O - Last 24 hours: Intake & Output 02/08/19 02/09/19 02/09/19 22:59 06:59 14:59 Intake Total 703 1625 50 Output Total 0 250 Balance 703 1375 50 Lab Results - Last 24 hrs: Laboratory Results - last 24 hr 02/09/19 02/09/19 Range/Units 04:45 04:45 WBC 13.03 H (4.0-11.0) K/uL RBC 3.53 L (4.50-5.90) M/uL Hgb 11.1 L (13.0-17.0) g/dL Hct 32.3 L (38.0-50.0) % MCV 91.5 (80.0-98.0) fL MCH 31.4 (27.0-32.0) pg MCHC 34.4 (31.0-37.0) g/dL RDW Std Deviation 49.2 (28.0-62.0) fl RDW Coeff of Mao 15 (11.0-15.0) % Plt Count 558 H (150-400) K/uL MPV 10.00 (7.40-12.00) fL Add Manual Diff YES Neutrophils % (Manual) 54 (48.0-80.0) % Band Neutrophils % 1 % Lymphocytes % (Manual) 39 (16.0-40.0) % Monocytes % (Manual) 5 (0.0-15.0) % Basophils % (Manual) 1 (0.0-1.5) % Nucleated RBC % 0.0 /100WBC Absolute Seg Neuts 7.0 H (1.4-5.7) Band Neutrophils # 0.1 Lymphocytes # (Manual) 5.1 H (0.6-2.4) Monocytes # (Manual) 0.7 (0.0-0.8) Basophils # (Manual) 0.1 (0.0-0.1) Nucleated RBCs # 0 K/uL Sodium 141 (136-148) mmol/L Potassium 3.9 (3.5-5.1) mmol/L Chloride 109 H (98-107) mmol/L Carbon Dioxide 23.5 (21.0-32.0) mmol/L BUN 24 H (7.0-18.0) mg/dL Creatinine 1.0 (0.8-1.3) mg/dL Est Cr Clr Drug Dosing 64.10 mL/min Estimated GFR (MDRD) > 60.0 ml/min Glucose 102 (74-106) mg/dL Calcium 8.1 L (8.5-10.1) mg/dL Total Bilirubin 0.3 (0.2-1.0) mg/dL AST 29 (15-37) IU/L ALT 29 (14-63) IU/L Alkaline Phosphatase 102 (46-116) U/L Total Protein 6.5 (6.4-8.2) g/dL Albumin 2.5 L (3.4-5.0) g/dL Globulin 4.0 (2.6-4.0) g/dL Albumin/Globulin Ratio 0.6 L (0.9-1.6) MEAGAN Results - Last 24 hrs: Microbiology 02/08/19 09:30 Aerobic Blood Culture - Preliminary Blood - Venous - Lab Draw NO GROWTH AFTER 1 DAY Anaerobic Blood Culture - Final 02/08/19 09:20 Aerobic Blood Culture - Preliminary Blood - Venous NO GROWTH AFTER 1 DAY Anaerobic Blood Culture - Preliminary NO GROWTH AFTER 1 DAY Med Orders - Current: Current Medications Enoxaparin Sodium (Lovenox) 40 mg SUBCUT Q24H [facility] Last Admin: 02/09/19 10:59 Dose: 40 mg Hydromorphone HCl (Dilaudid) 1 mg IVPUSH Q6H PRN PRN Reason: Pain Last Admin: 02/09/19 05:24 Dose: 1 mg Sodium Chloride (Normal Saline) 1,000 mls @ 175 mls/hr IV ASDIRECTED [facility] Stop: 02/09/19 17:13 Last Admin: 02/08/19 18:06 Dose: 175 mls/hr Piperacillin Sod/Tazobactam (Sod 3.375 gm/ Sodium Chloride) 50 mls @ 100 mls/ hr IV Q6H [facility] Last Admin: 02/09/19 10:59 Dose: 100 mls/hr Ceftriaxone Sodium/Dextrose 2 (gm/ Premix) 50 mls @ 100 mls/hr IV Q24H [facility] Last Admin: 02/09/19 09:28 Dose: 100 mls/hr Lisinopril (Prinivil) 10 mg PO BEDTIME [facility] Last Admin: 02/08/19 20:59 Dose: 10 mg Metoclopramide HCl (Reglan) 10 mg IVPUSH Q6H PRN PRN Reason: Nausea Ondansetron HCl (Zofran Odt) 4 mg PO Q4H PRN PRN Reason: nausea, able to take PO Last Admin: 02/08/19 16:37 Dose: 4 mg Pregabalin (Lyrica) 150 mg PO BID [facility] Last Admin: 02/09/19 09:26 Dose: 150 mg Quetiapine Fumarate (Seroquel) 50 mg PO BEDTIME [facility] Last Admin: 02/08/19 20:59 Dose: 50 mg Sertraline HCl (Zoloft) 50 mg PO BEDTIME [facility] Last Admin: 02/08/19 21:00 Dose: 50 mg Tolterodine Tartrate (Detrol La 24 Hr) 4 mg PO DAILY [facility] Last Admin: 02/09/19 09:27 Dose: 4 mg Trazodone HCl (Trazodone) 50 mg PO BEDTIME [facility] Last Admin: 02/08/19 21:00 Dose: 50 mg Discontinued Medications Sodium Chloride (Normal Saline) 1,000 mls @ 999 mls/hr IV STAT ONE Stop: 02/08/19 10:12 Last Admin: 02/08/19 09:37 Dose: 999 mls/hr Ceftriaxone Sodium/Dextrose 2 (gm/ Premix) 50 mls @ 100 mls/hr IV ONETIME ONE Stop: 02/08/19 10:46 Last Admin: 02/08/19 10:32 Dose: 100 mls/hr Labetalol HCl (Normodyne) 20 mg IVPUSH ONETIME ONE; Protocol Stop: 02/08/19 16:14 Last Admin: 02/08/19 16:58 Dose: Not Given Lorazepam (Ativan) 1 mg IVPUSH ONETIME ONE Stop: 02/08/19 10:42 Last Admin: 02/08/19 10:53 Dose: 1 mg Lorazepam (Ativan) 1 mg IVPUSH ONETIME ONE Stop: 02/08/19 12:09 Last Admin: 02/08/19 12:34 Dose: 1 mg Metoclopramide HCl (Reglan) 5 mg IVPUSH ONETIME ONE Stop: 02/08/19 13:20 Last Admin: 02/08/19 13:30 Dose: 5 mg Ondansetron HCl (Zofran) 4 mg IVPUSH ONETIME ONE Stop: 02/08/19 09:13 Last Admin: 02/08/19 09:48 Dose: 4 mg Ondansetron HCl (Zofran) 4 mg IVPUSH Q4H PRN PRN Reason: Nausea Temazepam (Restoril) 15 mg PO BEDTIME PRN PRN Reason: Sleep
[2019-02-09] MEDS: Enoxaparin 40 MG/0.4 ML Syringe SUBCUT SCH (10:59)
== END 2019-02-09 12:15 | disposition home or self-care (01) ==
LOC: MW.ED 09:08 → MW.MS 11:17
PROVIDERS: ADMIT Internal Medicine; ATTEND Internal Medicine
DX: R11.2 Nausea with vomiting, unspecified (principal); D72.829 Elevated white blood cell count, unspecified; D47.3 Essential (hemorrhagic) thrombocythemia; M86.672 Other chronic osteomyelitis, left ankle and foot; G62.9 Polyneuropathy, unspecified; J44.9 Chronic obstructive pulmonary disease, unspecified; M19.90 Unspecified osteoarthritis, unspecified site; F32.9 Major depressive disorder, single episode, unspecified; Z88.5 Allergy status to narcotic agent; Z79.899 Other long term (current) drug therapy; Z79.2 Long term (current) use of antibiotics; Z87.891 Personal history of nicotine dependence; Z89.422 Acquired absence of other left toe(s); Z89.421 Acquired absence of other right toe(s)
CPT/HCPCS: 36415; 70450; 71045; 74018; 80053; 83605; 84484; 85025; 87040; 93005; 96361; 96365; 96366; 96367; 96372; 96375; 96376; 99285; A9270; G0378; J0696; J1170; J1650; J2060; J2405; J2543; J2765; J7040; J7050

== ENCOUNTER 2019-02-10 07:14 | Observation (INO) | payer MEDICARE, OTHER ==
[2019-02-10] MEDS ORDERED: Sodium Chloride 0.9% 1,000 ML IV ONE (07:22)
--- NOTE | 2019-02-10 07:51 | EDM.PDOC ---
ED HPI GENERAL MEDICAL PROBLEM - General Chief Complaint: General Stated Complaint: DEHYDRATION Time Seen by Provider: 02/10/19 07:49 Source of Information: Reports: Patient - History of Present Illness INITIAL COMMENTS - FREE TEXT/NARRATIVE: HISTORY AND PHYSICAL: History of present illness: [Patient presents with dehydration, he has had recent surgery with podiatry in [place] and a recent hospital stay for 6 days in [place] due to sepsis No current fever nausea vomiting chills sweats Patient complains of back pain ] Review of systems: As per history of present illness and below otherwise all systems reviewed and negative. Past medical history: As per history of present illness and as reviewed below otherwise noncontributory. Surgical history: As per history of present illness and as reviewed below otherwise noncontributory. Social history: No reported history of drug or alcohol abuse. Family history: As per history of present illness and as reviewed below otherwise noncontributory. Physical exam: HEENT: Atraumatic, normocephalic, pupils reactive, negative for conjunctival pallor or scleral icterus, mucous membranes moist, throat clear, neck supple, nontender, trachea midline. Lungs: Clear to auscultation, breath sounds equal bilaterally, chest nontender. Heart: S1S2, regular, negative for clicks, rubs, or JVD. Abdomen: Soft, nondistended, nontender. Negative for masses or hepatosplenomegaly. Negative for costovertebral tenderness. Pelvis: Stable nontender. Genitourinary: Deferred. Rectal: Deferred. Extremities: Atraumatic, negative for cords or calf pain. Neurovascular unremarkable. Neuro: Awake, alert, oriented. Cranial nerves II through XII unremarkable. Cerebellum unremarkable. Motor and sensory unremarkable throughout. Exam nonfocal. Skin tenting noted Diagnostics: [CBC CMP UA blood cultures 2 troponin CPK lactic acid EKG Chest 1 view ] Therapeutics: [ normal saline ] Impression: [ dehydration Ice and admission to her facility Recent admission for sepsis recent foot surgery for suspected osteomyelitis Chronic history of baseline Definitive disposition and diagnosis as appropriate pending reevaluation and review of above. back Pain Score (Numeric/FACES): 10 - Related Data Allergies Allergy/AdvReac Type Severity Reaction Status Date / Time morphine Allergy Other Verified 02/08/19 11:42 Home Meds: Home Meds Lisinopril 10 mg PO BEDTIME 05/02/16 [History] Pregabalin [Lyrica] 150 mg PO BID 05/02/16 [History] Tolterodine Tartrate [Detrol LA] 4 mg PO DAILY 05/02/16 [History] Amoxicillin/Potassium Clav [Amox-Clav 875-125 mg Tablet] 1 tab PO Q12H 02/08/19 [History] Hydrocodone/Acetaminophen [[place] 5-325 Tablet] 5 - 325 mg PO Q6HR PRN 02/08/19 [ History] Meloxicam 7.5 mg PO DAILY 02/08/19 [History] Metoprolol Tartrate 50 mg PO DAILY 02/08/19 [History] QUEtiapine [SEROquel] 50 mg PO BEDTIME 02/08/19 [History] Sertraline [Zoloft] 50 mg PO BEDTIME 02/08/19 [History] traZODone HCl [Trazodone HCl] 50 mg PO BEDTIME 02/08/19 [History] Past Medical History HEENT History: Reports: None Other HEENT History: wears glasses, has upper denture and lower removable partial Cardiovascular History: Reports: Hypertension Other Cardiovascular History: pericarditis Respiratory History: Reports: COPD Gastrointestinal History: Reports: None Genitourinary History: Reports: None Musculoskeletal History: Reports: Arthritis, Other (See Below) Other Musculoskeletal History: shoulder injections Neurological History: Reports: Neuropathy, Peripheral Other Neuro History: bacterial meningitis '01 with multiple organ failure ( sepsis) Psychiatric History: Reports: Depression, PTSD, Other (See Below) Endocrine/Metabolic History: Reports: None Hematologic History: Reports: None Immunologic History: Reports: None Oncologic (Cancer) History: Reports: None Dermatologic History: Reports: None - Infectious Disease History Infectious Disease History: Reports: Measles, Shingles Other Infectious Disease History: meningococal septicemia - Past Surgical History Head Surgeries/Procedures: Reports: None Other Respiratory Surgeries/Procedures: previous chest tube Male Surgical History: Reports: None Other Musculoskeletal Surgeries/Procedures:: 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 Social & Family History - Family History Family Medical History: Noncontributory - Tobacco Use Smoking Status *Q: Current Every Day Smoker Years of Tobacco use: 50 Packs/Tins Daily: 1 - Caffeine Use Caffeine Use: Reports: Coffee Caffeine Use Comment: 6 cups of coffee a day - Recreational Drug Use Recreational Drug Use: No ED ROS GENERAL - Review of Systems Review Of Systems: See Below ED EXAM, GENERAL - Physical Exam Exam: See Below Course - Vital Signs Last Recorded V/S: Last Vital Signs Temp 96.5 F 02/10/19 07:17 Pulse 81 02/10/19 07:17 Resp 24 H 02/10/19 07:17 BP 175/95 H 02/10/19 07:17 Pulse Ox 97 02/10/19 07:17 - Orders/Labs/Meds Orders: Active Orders 24 hr Category Date Time Status EKG Documentation Completion [RC] STAT Care 02/10/19 07:23 Active Chest 1V Frontal [CR] Stat Exams 02/10/19 07:49 Ordered COMPREHENSIVE METABOLIC PN,CMP [CHEM] Stat Lab 02/10/19 07:38 Received CREATINE KINASE,CK [CHEM] Stat Lab 02/10/19 07:38 Received CULTURE BLOOD [BC] Stat Lab 02/10/19 07:49 Ordered CULTURE BLOOD [BC] Stat Lab 02/10/19 07:49 Ordered LACTIC ACID,WHOLE BLOOD [BG] Stat Lab 02/10/19 07:49 Ordered TROPONIN I [CHEM] Stat Lab 02/10/19 07:38 Received Sodium Chloride 0.9% [Normal Saline] 1,000 ml Med 02/10/19 07:22 Active IV STAT Blood Culture x2 Reflex Set [OM.PC] Stat Oth 02/10/19 07:49 Ordered Medication Orders Sodium Chloride (Normal Saline) 1,000 mls @ 999 mls/hr IV STAT ONE Stop: 02/10/19 08:22 Last Admin: 02/10/19 07:41 Dose: 999 mls/hr Labs: Laboratory Tests 02/10/19 02/10/19 Range/Units 07:38 08:00 WBC 12.03 H (4.0-11.0) K/uL RBC 3.91 L (4.50-5.90) M/uL Hgb 12.2 L (13.0-17.0) g/dL Hct 35.1 L (38.0-50.0) % MCV 89.8 (80.0-98.0) fL MCH 31.2 (27.0-32.0) pg MCHC 34.8 (31.0-37.0) g/dL RDW Std Deviation 47.9 (28.0-62.0) fl RDW Coeff of Mao 15 (11.0-15.0) % Plt Count 669 H (150-400) K/uL MPV 9.70 (7.40-12.00) fL Neut % (Auto) 47.9 L (48.0-80.0) % Lymph % (Auto) 40.6 H (16.0-40.0) % Harrison % (Auto) 9.1 (0.0-15.0) % Eos % (Auto) 1.7 (0.0-7.0) % Baso % (Auto) 0.7 (0.0-1.5) % Neut # (Auto) 5.8 H (1.4-5.7) K/uL Lymph # (Auto) 4.9 H (0.6-2.4) K/uL Harrison # (Auto) 1.1 H (0.0-0.8) K/uL Eos # (Auto) 0.2 (0.0-0.7) K/uL Baso # (Auto) 0.1 (0.0-0.1) K/uL Nucleated RBC % 0.0 /100WBC Nucleated RBCs # 0 K/uL Urine Color YELLOW Urine Appearance CLEAR Urine pH 7.5 (5.0-8.0) Ur Specific [place] 1.025 (1.001-1.035) Urine Protein NEGATIVE (NEGATIVE) mg/dL Urine Glucose (UA) NEGATIVE (NEGATIVE) mg/dL Urine Ketones 15 H (NEGATIVE) mg/dL Urine Occult Blood NEGATIVE (NEGATIVE) Urine Nitrite NEGATIVE (NEGATIVE) Urine Bilirubin NEGATIVE (NEGATIVE) Urine Urobilinogen 0.2 (<2.0) EU/dL Ur Leukocyte Esterase NEGATIVE (NEGATIVE) Meds: Medications Generic Name Dose Route Start Last Admin Trade Name Freq PRN Reason Stop Dose Admin Sodium Chloride 1,000 mls @ 999 mls/hr 02/10/19 07:22 02/10/19 07:41 Normal Saline IV 02/10/19 08:22 999 mls/hr STAT ONE Administration Departure - Departure Time of Disposition: 08:14 Disposition: Refer to Observation Condition: Poor Clinical Impression: Dehydration, Right foot infection - Discharge Information Referrals: Star Jacob MD [Primary Care Provider] - Forms: ED Department Discharge - My Orders Last 24 Hours: My Active Orders 02/10/19 07:22 Sodium Chloride 0.9% [Normal Saline] 1,000 ml IV STAT 02/10/19 07:23 EKG Documentation Completion [RC] STAT 02/10/19 07:38 COMPREHENSIVE METABOLIC PN,CMP [CHEM] Stat CREATINE KINASE,CK [CHEM] Stat TROPONIN I [CHEM] Stat 02/10/19 07:49 Chest 1V Frontal [CR] Stat CULTURE BLOOD [BC] Stat CULTURE BLOOD [BC] Stat LACTIC ACID,WHOLE BLOOD [BG] Stat Blood Culture x2 Reflex Set [OM.PC] Stat - Assessment/Plan Last 24 Hours: My Active Orders 02/10/19 07:22 Sodium Chloride 0.9% [Normal Saline] 1,000 ml IV STAT 02/10/19 07:23 EKG Documentation Completion [RC] STAT 02/10/19 07:38 COMPREHENSIVE METABOLIC PN,CMP [CHEM] Stat CREATINE KINASE,CK [CHEM] Stat TROPONIN I [CHEM] Stat 02/10/19 07:49 Chest 1V Frontal [CR] Stat CULTURE BLOOD [BC] Stat CULTURE BLOOD [BC] Stat LACTIC ACID,WHOLE BLOOD [BG] Stat Blood Culture x2 Reflex Set [OM.PC] Stat
[2019-02-10 08:11] LABS: BLOOD UREA NITROGEN,BUN 18 mg/dL (7.0-18.0); CARBON DIOXIDE,CO2 20.6 mmol/L (21.0-32.0); CHLORIDE,CL 104 mmol/L (98-107); GLUCOSE RANDOM 99 mg/dL (74-106); POTASSIUM,K 3.4 mmol/L (3.5-5.1); SODIUM,NA 138 mmol/L (136-148)
--- NOTE | 2019-02-10 08:44 | CR ---
EXAMINATION: Portable chest radiograph. HISTORY: Shortness of breath. FINDINGS: The trachea is midline. The cardiomediastinal silhouette is within normal limits. There is stable elevation of the left hemidiaphragm. Mild left basilar atelectasis/scarring, unchanged. Left-sided PICC line is noted. Osseous structures appear unremarkable. IMPRESSION: No acute cardiopulmonary process.
[2019-02-10] MEDS ORDERED: Metoclopramide 10 MG/2 ML SDV IVPUSH PRN (08:46)
[2019-02-10] MEDS: Sodium Chloride 0.9% 1,000 ML IV SCH ×2 (08:58→18:02)
[2019-02-10] MEDS: Enoxaparin 40 MG/0.4 ML Syringe SUBCUT SCH (08:58)
[2019-02-10] MEDS ORDERED: LORazepam 2 MG/ML SDV IVPUSH ONE (11:02)
--- NOTE | 2019-02-10 11:08 | PCM.HP ---
<Sandy Aleksandar Zelaya - Last Filed: 02/10/19 11:11> H&P History of Present Illness - General Date of Service: 02/10/19 Admit Problem/Dx: Admission Diagnosis/Problem Admission Diagnosis/Problem Dehydration - History of Present Illness Initial Comments - Free Text/Narative: 68 y/o male with history of neuropathy s/p bilateral toe amputations years ago and recent right 2nd metatarsal debridement at [facility] for suspected osteomyelitis. He was recently hospitalized for nausea and vomiting. Stated that he had been discharged home over the weekend from [facility] and had his home discharge medications incorrect. He was instructed to continue with daily ceftriaxone 2 g IV daily for total of 14 days and Augmenting as outpatient. Patient was doing better and able to tolerated PO intake and wanted to go home so he was discharged on 02/09/19. However, He states that this morning he woke up feeling nauseous, dry heaving. No chest pain, dyspnea, abdominal pain, dysuria, diarrhea, constipation. Stated that he was only able to drink small sips of water at home. back Pain Score (Numeric/FACES): 8 - Related Data Allergies/Adverse Reactions: Allergies Allergy/AdvReac Type Severity Reaction Status Date / Time morphine Allergy Other Verified 02/08/19 11:42 Home Medications: Home Meds Lisinopril 10 mg PO BEDTIME 05/02/16 [History] Pregabalin [Lyrica] 150 mg PO BID 05/02/16 [History] Tolterodine Tartrate [Detrol LA] 4 mg PO DAILY 05/02/16 [History] Amoxicillin/Potassium Clav [Amox-Clav 875-125 mg Tablet] 1 tab PO Q12H 02/08/19 [History] Hydrocodone/Acetaminophen [[place]an 5-325 Tablet] 5 - 325 mg PO Q6HR PRN 02/08/19 [ History] Meloxicam 7.5 mg PO DAILY 02/08/19 [History] Metoprolol Tartrate 50 mg PO DAILY 02/08/19 [History] QUEtiapine [SEROquel] 50 mg PO BEDTIME 02/08/19 [History] Sertraline [Zoloft] 50 mg PO BEDTIME 02/08/19 [History] traZODone HCl [Trazodone HCl] 50 mg PO BEDTIME 02/08/19 [History] Past Medical History HEENT History: Reports: None Other HEENT History: wears glasses, has upper denture and lower removable partial Cardiovascular History: Reports: Hypertension Other Cardiovascular History: pericarditis Respiratory History: Reports: COPD Gastrointestinal History: Reports: None Genitourinary History: Reports: None Musculoskeletal History: Reports: Arthritis, Other (See Below) Other Musculoskeletal History: shoulder injections Neurological History: Reports: Neuropathy, Peripheral Other Neuro History: bacterial meningitis '01 with multiple organ failure ( sepsis) Psychiatric History: Reports: Depression, PTSD, Other (See Below) Endocrine/Metabolic History: Reports: None Hematologic History: Reports: None Immunologic History: Reports: None Oncologic (Cancer) History: Reports: None Dermatologic History: Reports: None - Infectious Disease History Infectious Disease History: Reports: Measles, Shingles Other Infectious Disease History: meningococal septicemia - Past Surgical History Head Surgeries/Procedures: Reports: None Other Respiratory Surgeries/Procedures: previous chest tube Male Surgical History: Reports: None Other Musculoskeletal Surgeries/Procedures:: 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 Social & Family History - Family History Family Medical History: Noncontributory - Tobacco Use Smoking Status *Q: Current Every Day Smoker Years of Tobacco use: 50 Packs/Tins Daily: 1 Used Tobacco, but Quit: No Month/Year Tobacco Last Used: 01/25/2019 Second Hand Smoke Exposure: No - Caffeine Use Caffeine Use: Reports: Coffee Caffeine Use Comment: 6 cups of coffee a day - Alcohol Use Date of Last Drink: 11/11/18 - Recreational Drug Use Recreational Drug Use: No H&P Review of Systems - Review of Systems: Review Of Systems: ROS reveals no pertinent complaints other than HPI. Exam - Exam Exam: See Below - Vital Signs Vital Signs: Last Vital Signs Temp 35.8 C 02/10/19 07:17 Pulse 66 02/10/19 09:40 Resp 20 02/10/19 09:40 BP 175/93 H 02/10/19 09:40 Pulse Ox 98 02/10/19 09:40 Weight: 61.371 kg - Exam General: Alert, Oriented, Cooperative HEENT: Other (dry oral mucosa) Lungs: Clear to Auscultation, Normal Respiratory Effort Cardiovascular: Regular Rate, Regular Rhythm GI/Abdominal Exam: Normal Bowel Sounds, Soft, Non-Tender, No Distention Extremities: Other (bilateral toe amputations. No drainage, erythema, swelling.) Skin: Warm, Dry Neuro Extensive - Mental Status: Alert, Oriented x3 - Patient Data Lab Results Last 24 hrs: Laboratory Results - last 24 hr 02/10/19 02/10/19 02/10/19 Range/Units 07:38 07:38 08:00 WBC 12.03 H (4.0-11.0) K/uL RBC 3.91 L (4.50-5.90) M/uL Hgb 12.2 L (13.0-17.0) g/dL Hct 35.1 L (38.0-50.0) % MCV 89.8 (80.0-98.0) fL MCH 31.2 (27.0-32.0) pg MCHC 34.8 (31.0-37.0) g/dL RDW Std Deviation 47.9 (28.0-62.0) fl RDW Coeff of Mao 15 (11.0-15.0) % Plt Count 669 H (150-400) K/uL MPV 9.70 (7.40-12.00) fL Neut % (Auto) 47.9 L (48.0-80.0) % Lymph % (Auto) 40.6 H (16.0-40.0) % Henry % (Auto) 9.1 (0.0-15.0) % Eos % (Auto) 1.7 (0.0-7.0) % Baso % (Auto) 0.7 (0.0-1.5) % Neut # (Auto) 5.8 H (1.4-5.7) K/uL Lymph # (Auto) 4.9 H (0.6-2.4) K/uL Henry # (Auto) 1.1 H (0.0-0.8) K/uL Eos # (Auto) 0.2 (0.0-0.7) K/uL Baso # (Auto) 0.1 (0.0-0.1) K/uL Nucleated RBC % 0.0 /100WBC Nucleated RBCs # 0 K/uL Lactate (0.20-2.00) mmol/L Sodium 138 (136-148) mmol/L Potassium 3.4 L (3.5-5.1) mmol/L Chloride 104 (98-107) mmol/L Carbon Dioxide 20.6 L (21.0-32.0) mmol/L BUN 18 (7.0-18.0) mg/dL Creatinine 0.9 (0.8-1.3) mg/dL Est Cr Clr Drug Dosing 72.52 mL/min Estimated GFR (MDRD) > 60.0 ml/min Glucose 99 (74-106) mg/dL Calcium 9.2 (8.5-10.1) mg/dL Total Bilirubin 0.3 (0.2-1.0) mg/dL AST 30 (15-37) IU/L ALT 31 (14-63) IU/L Alkaline Phosphatase 109 (46-116) U/L Creatine Kinase 173 (26-308) U/L Troponin I < 0.050 (0.000-0.056) ng/mL Total Protein 7.3 (6.4-8.2) g/dL Albumin 2.9 L (3.4-5.0) g/dL Globulin 4.4 H (2.6-4.0) g/dL Albumin/Globulin Ratio 0.7 L (0.9-1.6) Urine Color YELLOW Urine Appearance CLEAR Urine pH 7.5 (5.0-8.0) Ur Specific [place] 1.025 (1.001-1.035) Urine Protein NEGATIVE (NEGATIVE) mg/dL Urine Glucose (UA) NEGATIVE (NEGATIVE) mg/dL Urine Ketones 15 H (NEGATIVE) mg/dL Urine Occult Blood NEGATIVE (NEGATIVE) Urine Nitrite NEGATIVE (NEGATIVE) Urine Bilirubin NEGATIVE (NEGATIVE) Urine Urobilinogen 0.2 (<2.0) EU/dL Ur Leukocyte Esterase NEGATIVE (NEGATIVE) 02/10/19 Range/Units 08:33 WBC (4.0-11.0) K/uL RBC (4.50-5.90) M/uL Hgb (13.0-17.0) g/dL Hct (38.0-50.0) % MCV (80.0-98.0) fL MCH (27.0-32.0) pg MCHC (31.0-37.0) g/dL RDW Std Deviation (28.0-62.0) fl RDW Coeff of [place] (11.0-15.0) % Plt Count (150-400) K/uL MPV (7.40-12.00) fL Neut % (Auto) (48.0-80.0) % Lymph % (Auto) (16.0-40.0) % Henry % (Auto) (0.0-15.0) % Eos % (Auto) (0.0-7.0) % Baso % (Auto) (0.0-1.5) % Neut # (Auto) (1.4-5.7) K/uL Lymph # (Auto) (0.6-2.4) K/uL Henry # (Auto) (0.0-0.8) K/uL Eos # (Auto) (0.0-0.7) K/uL Baso # (Auto) (0.0-0.1) K/uL Nucleated RBC % /100WBC Nucleated RBCs # K/uL Lactate 1.5 (0.20-2.00) mmol/L Sodium (136-148) mmol/L Potassium (3.5-5.1) mmol/L Chloride (98-107) mmol/L Carbon Dioxide (21.0-32.0) mmol/L BUN (7.0-18.0) mg/dL Creatinine (0.8-1.3) mg/dL Est Cr Clr Drug Dosing mL/min Estimated GFR (MDRD) ml/min Glucose (74-106) mg/dL Calcium (8.5-10.1) mg/dL Total Bilirubin (0.2-1.0) mg/dL AST (15-37) IU/L ALT (14-63) IU/L Alkaline Phosphatase (46-116) U/L Creatine Kinase (26-308) U/L Troponin I (0.000-0.056) ng/mL Total Protein (6.4-8.2) g/dL Albumin (3.4-5.0) g/dL Globulin (2.6-4.0) g/dL Albumin/Globulin Ratio (0.9-1.6) Urine Color Urine Appearance Urine pH (5.0-8.0) Ur Specific [place] (1.001-1.035) Urine Protein (NEGATIVE) mg/dL Urine Glucose (UA) (NEGATIVE) mg/dL Urine Ketones (NEGATIVE) mg/dL Urine Occult Blood (NEGATIVE) Urine Nitrite (NEGATIVE) Urine Bilirubin (NEGATIVE) Urine Urobilinogen (<2.0) EU/dL Ur Leukocyte Esterase (NEGATIVE) Result Diagrams: 02/10/19 07:38 02/10/19 07:38 Problem List Initiated/Reviewed/Updated: Yes Orders Last 24hrs: Active Orders 24 hr Category Date Time Status Admission Status [Patient Status] [ADT] Stat ADT 02/10/19 08:14 Active Oxygen Therapy [RC] PRN Care 02/10/19 08:39 Active Up With Assistance [RC] ASDIRECTED Care 02/10/19 08:39 Active VTE/DVT Education [RC] PER UNIT ROUTINE Care 02/10/19 08:39 Active Vital Signs [RC] Q4H Care 02/10/19 08:39 Active Regular Diet [DIET] Diet 02/10/19 Breakfast Active CULTURE BLOOD [BC] Stat Lab 02/10/19 08:08 Received CULTURE BLOOD [BC] Stat Lab 02/10/19 08:18 Received Enoxaparin [Lovenox] Med 02/10/19 08:45 Active 40 mg SUBCUT Q24H LORazepam [Ativan] Med 02/10/19 11:02 Once 1 mg IVPUSH ONETIME ONE Lisinopril [Prinivil] Med 02/10/19 21:00 Ordered 10 mg PO BEDTIME Metoclopramide [Reglan] Med 02/10/19 08:46 Active 10 mg IVPUSH Q6H PRN Metoprolol Tartrate [Lopressor] Med 02/11/19 09:00 Ordered 50 mg PO DAILY Pregabalin [Lyrica] Med 02/10/19 21:00 Ordered 150 mg PO BID QUEtiapine [SEROquel] Med 02/10/19 21:00 Ordered 50 mg PO BEDTIME Sertraline [Zoloft] Med 02/10/19 21:00 Ordered 50 mg PO BEDTIME Sodium Chloride 0.9% [Normal Saline] 1,000 ml Med 02/10/19 08:45 Active IV ASDIRECTED Tolterodine Tartrate [Detrol LA] Med 02/11/19 09:00 Ordered 4 mg PO DAILY traZODone Med 02/10/19 21:00 Ordered 50 mg PO BEDTIME Blood Culture x2 Reflex Set [OM.PC] Stat Oth 02/10/19 07:49 Ordered Resuscitation Status Routine Resus Stat 02/10/19 08:39 Ordered Medication Orders Enoxaparin Sodium (Lovenox) 40 mg SUBCUT Q24H [facility] Last Admin: 02/10/19 08:58 Dose: 40 mg Sodium Chloride (Normal Saline) 1,000 mls @ 125 mls/hr IV ASDIRECTED [facility] Last Admin: 02/10/19 08:58 Dose: 125 mls/hr Lisinopril (Prinivil) 10 mg PO BEDTIME [facility] Lorazepam (Ativan) 1 mg IVPUSH ONETIME ONE Stop: 02/10/19 11:03 Metoclopramide HCl (Reglan) 10 mg IVPUSH Q6H PRN PRN Reason: Nausea Metoprolol Tartrate (Lopressor) 50 mg PO DAILY [facility] Non-Formulary Medication (Pregabalin [Lyrica]) 150 mg PO BID [facility] Non-Formulary Medication (Tolterodine Tartrate [Detrol La]) 4 mg PO DAILY [facility] Quetiapine Fumarate (Seroquel) 50 mg PO BEDTIME [facility] Sertraline HCl (Zoloft) 50 mg PO BEDTIME [facility] Trazodone HCl (Trazodone) 50 mg PO BEDTIME [facility] Assessment/Plan Comment:: A: 1. Nausea 2. History of osteomyelitis of right 2nd metatarsal s/p debridement 3. Mild Leukocytosis 4. Thrombocytosis 5. Hx of depression, neuropathy, hypertension P: 1. Nausea- Reglan PRN for nausea. Continue NS IV fluids for hydration. Regular diet. 2. History of osteomyelitis of right 2nd metatarsal- will continue outpatient regimen which includes Ceftriaxone 2g IV daily. In addition, will start sozyn in place of Augmentin since patient is nauseous. 3. Leukocytosis- improving from recent hospitalization. Patient remains afebrile. will continue to monitor. 4. Hx depression, neuropathy, hypertension- continue home medications. dispo: 1-2 days <Dave Jules - Last Filed: 02/10/19 12:23> H&P History of Present Illness - General Admit Problem/Dx: Admission Diagnosis/Problem Admission Diagnosis/Problem Dehydration I have seen and examined the patient independently of Dr. Sandy MD. I have reviewed and agree with the plan of care as outlined by Dr. Delgado. I have discussed the case with the resident. Please see orders. Exam - Vital Signs Vital Signs: Last Vital Signs Temp 35.8 C 02/10/19 07:17 Pulse 66 02/10/19 09:40 Resp 20 02/10/19 09:40 BP 175/93 H 02/10/19 09:40 Pulse Ox 98 02/10/19 09:40 - Patient Data Lab Results Last 24 hrs: Laboratory Results - last 24 hr 02/10/19 02/10/19 02/10/19 Range/Units 07:38 07:38 08:00 WBC 12.03 H (4.0-11.0) K/uL RBC 3.91 L (4.50-5.90) M/uL Hgb 12.2 L (13.0-17.0) g/dL Hct 35.1 L (38.0-50.0) % MCV 89.8 (80.0-98.0) fL MCH 31.2 (27.0-32.0) pg MCHC 34.8 (31.0-37.0) g/dL RDW Std Deviation 47.9 (28.0-62.0) fl RDW Coeff of Mao 15 (11.0-15.0) % Plt Count 669 H (150-400) K/uL MPV 9.70 (7.40-12.00) fL Neut % (Auto) 47.9 L (48.0-80.0) % Lymph % (Auto) 40.6 H (16.0-40.0) % Henry % (Auto) 9.1 (0.0-15.0) % Eos % (Auto) 1.7 (0.0-7.0) % Baso % (Auto) 0.7 (0.0-1.5) % Neut # (Auto) 5.8 H (1.4-5.7) K/uL Lymph # (Auto) 4.9 H (0.6-2.4) K/uL Henry # (Auto) 1.1 H (0.0-0.8) K/uL Eos # (Auto) 0.2 (0.0-0.7) K/uL Baso # (Auto) 0.1 (0.0-0.1) K/uL Nucleated RBC % 0.0 /100WBC Nucleated RBCs # 0 K/uL Lactate (0.20-2.00) mmol/L Sodium 138 (136-148) mmol/L Potassium 3.4 L (3.5-5.1) mmol/L Chloride 104 (98-107) mmol/L Carbon Dioxide 20.6 L (21.0-32.0) mmol/L BUN 18 (7.0-18.0) mg/dL Creatinine 0.9 (0.8-1.3) mg/dL Est Cr Clr Drug Dosing 72.52 mL/min Estimated GFR (MDRD) > 60.0 ml/min Glucose 99 (74-106) mg/dL Calcium 9.2 (8.5-10.1) mg/dL Total Bilirubin 0.3 (0.2-1.0) mg/dL AST 30 (15-37) IU/L ALT 31 (14-63) IU/L Alkaline Phosphatase 109 (46-116) U/L Creatine Kinase 173 (26-308) U/L Troponin I < 0.050 (0.000-0.056) ng/mL Total Protein 7.3 (6.4-8.2) g/dL Albumin 2.9 L (3.4-5.0) g/dL Globulin 4.4 H (2.6-4.0) g/dL Albumin/Globulin Ratio 0.7 L (0.9-1.6) Urine Color YELLOW Urine Appearance CLEAR Urine pH 7.5 (5.0-8.0) Ur Specific [place] 1.025 (1.001-1.035) Urine Protein NEGATIVE (NEGATIVE) mg/dL Urine Glucose (UA) NEGATIVE (NEGATIVE) mg/dL Urine Ketones 15 H (NEGATIVE) mg/dL Urine Occult Blood NEGATIVE (NEGATIVE) Urine Nitrite NEGATIVE (NEGATIVE) Urine Bilirubin NEGATIVE (NEGATIVE) Urine Urobilinogen 0.2 (<2.0) EU/dL Ur Leukocyte Esterase NEGATIVE (NEGATIVE) 02/10/19 Range/Units 08:33 WBC (4.0-11.0) K/uL RBC (4.50-5.90) M/uL Hgb (13.0-17.0) g/dL Hct (38.0-50.0) % MCV (80.0-98.0) fL MCH (27.0-32.0) pg MCHC (31.0-37.0) g/dL RDW Std Deviation (28.0-62.0) fl RDW Coeff of Mao (11.0-15.0) % Plt Count (150-400) K/uL MPV (7.40-12.00) fL Neut % (Auto) (48.0-80.0) % Lymph % (Auto) (16.0-40.0) % Henry % (Auto) (0.0-15.0) % Eos % (Auto) (0.0-7.0) % Baso % (Auto) (0.0-1.5) % Neut # (Auto) (1.4-5.7) K/uL Lymph # (Auto) (0.6-2.4) K/uL Henry # (Auto) (0.0-0.8) K/uL Eos # (Auto) (0.0-0.7) K/uL Baso # (Auto) (0.0-0.1) K/uL Nucleated RBC % /100WBC Nucleated RBCs # K/uL Lactate 1.5 (0.20-2.00) mmol/L Sodium (136-148) mmol/L Potassium (3.5-5.1) mmol/L Chloride (98-107) mmol/L Carbon Dioxide (21.0-32.0) mmol/L BUN (7.0-18.0) mg/dL Creatinine (0.8-1.3) mg/dL Est Cr Clr Drug Dosing mL/min Estimated GFR (MDRD) ml/min Glucose (74-106) mg/dL Calcium (8.5-10.1) mg/dL Total Bilirubin (0.2-1.0) mg/dL AST (15-37) IU/L ALT (14-63) IU/L Alkaline Phosphatase (46-116) U/L Creatine Kinase (26-308) U/L Troponin I (0.000-0.056) ng/mL Total Protein (6.4-8.2) g/dL Albumin (3.4-5.0) g/dL Globulin (2.6-4.0) g/dL Albumin/Globulin Ratio (0.9-1.6) Urine Color Urine Appearance Urine pH (5.0-8.0) Ur Specific [place] (1.001-1.035) Urine Protein (NEGATIVE) mg/dL Urine Glucose (UA) (NEGATIVE) mg/dL Urine Ketones (NEGATIVE) mg/dL Urine Occult Blood (NEGATIVE) Urine Nitrite (NEGATIVE) Urine Bilirubin (NEGATIVE) Urine Urobilinogen (<2.0) EU/dL Ur Leukocyte Esterase (NEGATIVE) Result Diagrams: 02/10/19 07:38 02/10/19 07:38 Orders Last 24hrs: Active Orders 24 hr Category Date Time Status Admission Status [Patient Status] [ADT] Stat ADT 02/10/19 08:14 Active Oxygen Therapy [RC] PRN Care 02/10/19 08:39 Active Up With Assistance [RC] ASDIRECTED Care 02/10/19 08:39 Active VTE/DVT Education [RC] PER UNIT ROUTINE Care 02/10/19 08:39 Active Vital Signs [RC] Q4H Care 02/10/19 08:39 Active Regular Diet [DIET] Diet 02/10/19 Breakfast Active CULTURE BLOOD [BC] Stat Lab 02/10/19 08:08 Received CULTURE BLOOD [BC] Stat Lab 02/10/19 08:18 Received Enoxaparin [Lovenox] Med 02/10/19 08:45 Active 40 mg SUBCUT Q24H LORazepam [Ativan] Med 02/10/19 11:46 Active 1 mg IVPUSH Q8H PRN Lisinopril [Prinivil] Med 02/10/19 21:00 Active 10 mg PO BEDTIME Metoclopramide [Reglan] Med 02/10/19 08:46 Active 10 mg IVPUSH Q6H PRN Metoprolol Tartrate [Lopressor] Med 02/11/19 09:00 Active 50 mg PO DAILY Pregabalin [Lyrica] Med 02/10/19 21:00 Active 150 mg PO BID QUEtiapine [SEROquel] Med 02/10/19 21:00 Active 50 mg PO BEDTIME Sertraline [Zoloft] Med 02/10/19 21:00 Active 50 mg PO BEDTIME Sodium Chloride 0.9% [Normal Saline] 1,000 ml Med 02/10/19 08:45 Active IV ASDIRECTED Tolterodine [Detrol LA 24 Hr] Med 02/11/19 09:00 Active 4 mg PO DAILY traZODone Med 02/10/19 21:00 Active 50 mg PO BEDTIME Blood Culture x2 Reflex Set [OM.PC] Stat Oth 02/10/19 07:49 Ordered Resuscitation Status Routine Resus Stat 02/10/19 08:39 Ordered Medication Orders Enoxaparin Sodium (Lovenox) 40 mg SUBCUT Q24H [facility] Last Admin: 02/10/19 08:58 Dose: 40 mg Sodium Chloride (Normal Saline) 1,000 mls @ 125 mls/hr IV ASDIRECTED [facility] Last Admin: 02/10/19 08:58 Dose: 125 mls/hr Lisinopril (Prinivil) 10 mg PO BEDTIME [facility] Lorazepam (Ativan) 1 mg IVPUSH Q8H PRN PRN Reason: Anxiety Metoclopramide HCl (Reglan) 10 mg IVPUSH Q6H PRN PRN Reason: Nausea Metoprolol Tartrate (Lopressor) 50 mg PO DAILY [facility] Pregabalin (Lyrica) 150 mg PO BID [facility] Quetiapine Fumarate (Seroquel) 50 mg PO BEDTIME [facility] Sertraline HCl (Zoloft) 50 mg PO BEDTIME [facility] Tolterodine Tartrate (Detrol La 24 Hr) 4 mg PO DAILY [facility] Trazodone HCl (Trazodone) 50 mg PO BEDTIME [facility]
[2019-02-10] MEDS ORDERED: LORazepam 2 MG/ML SDV IVPUSH PRN (11:46)
[2019-02-10] MEDS: HYDROmorphone 1 MG/ML Syringe IVPUSH PRN ×2 (13:54→20:43)
[2019-02-10] MEDS: Piperacillin/Tazobactam 3.375 GM in Sodium Chloride 0.9% 50 ML IV SCH ×2 (13:55→18:32)
[2019-02-10] MEDS: cefTRIAXone 2 GM in Premix Bag 1 BAG IV SCH (14:43)
[2019-02-10] MEDS: Acetaminophen/oxyCODONE 325-5 MG Tab PO PRN ×2 (18:01→23:12)
[2019-02-10] MEDS: Lisinopril 10 MG Tab PO SCH (20:37)
[2019-02-10] MEDS: traZODone 50 MG Tab PO SCH (20:38)
[2019-02-10] MEDS: Sertraline 50 MG Tab PO SCH (20:38)
[2019-02-10] MEDS: Pregabalin 75 MG Cap PO SCH (20:38)
[2019-02-11] MEDS: Sodium Chloride 0.9% 1,000 ML IV SCH ×2 (01:33→20:57)
[2019-02-11] MEDS: Piperacillin/Tazobactam 3.375 GM in Sodium Chloride 0.9% 50 ML IV SCH ×2 (01:34→06:30)
[2019-02-11] MEDS: Acetaminophen/oxyCODONE 325-5 MG Tab PO PRN ×4 (03:02→20:55)
[2019-02-11 06:04] LABS: BLOOD UREA NITROGEN,BUN 13 mg/dL (7.0-18.0); CARBON DIOXIDE,CO2 25.4 mmol/L (21.0-32.0); CHLORIDE,CL 107 mmol/L (98-107); GLUCOSE RANDOM 83 mg/dL (74-106); POTASSIUM,K 3.1 mmol/L (3.5-5.1); SODIUM,NA 142 mmol/L (136-148)
[2019-02-11] MEDS: HYDROmorphone 1 MG/ML Syringe IVPUSH PRN ×3 (06:24→19:21)
[2019-02-11] MEDS: Metoprolol Tartrate 50 MG Tab PO SCH (08:18)
[2019-02-11] MEDS: Tolterodine 2 MG Cap.ER PO SCH (08:18)
[2019-02-11] MEDS: Potassium Chloride 20 MEQ Tab.ER PO SCH ×2 (08:18→10:48)
[2019-02-11] MEDS: Enoxaparin 40 MG/0.4 ML Syringe SUBCUT SCH (08:19)
[2019-02-11] MEDS: Pregabalin 75 MG Cap PO SCH ×2 (08:19→20:49)
[2019-02-11] MEDS ORDERED: LORazepam 1 MG Tab PO ONE (10:47)
[2019-02-11] MEDS: cefTRIAXone 2 GM in Premix Bag 1 BAG IV SCH (14:18)
--- NOTE | 2019-02-11 14:18 | PCM.PN ---
- General Info Date of Service: 02/11/19 Subjective Update: No acute events overnight. Feeling a little better this morning, however, has not fully tried oral intake yet. No chest pain,dyspnea. - Patient Data Vitals - Most Recent: Last Vital Signs Temp 36.0 C 02/11/19 07:55 Pulse 61 02/11/19 08:18 Resp 18 02/11/19 07:55 BP 129/66 02/11/19 08:18 Pulse Ox 93 L 02/11/19 07:55 Weight - Most Recent: 61.371 kg I&O - Last 24 Hours: Intake & Output 02/10/19 02/11/19 02/11/19 22:59 06:59 14:59 Intake Total 1324 1720 Output Total 250 830 Balance 1074 890 Lab Results Last 24 Hours: Laboratory Results - last 24 hr 02/11/19 02/11/19 Range/Units 04:30 04:30 WBC 11.51 H (4.0-11.0) K/uL RBC 3.66 L (4.50-5.90) M/uL Hgb 11.3 L (13.0-17.0) g/dL Hct 33.4 L (38.0-50.0) % MCV 91.3 (80.0-98.0) fL MCH 30.9 (27.0-32.0) pg MCHC 33.8 (31.0-37.0) g/dL RDW Std Deviation 49.4 (28.0-62.0) fl RDW Coeff of Mao 15 (11.0-15.0) % Plt Count 647 H (150-400) K/uL MPV 10.30 (7.40-12.00) fL Add Manual Diff YES Neutrophils % (Manual) 48 (48.0-80.0) % Band Neutrophils % 1 % Lymphocytes % (Manual) 37 (16.0-40.0) % Monocytes % (Manual) 8 (0.0-15.0) % Eosinophils % (Manual) 3 (0.0-7.0) % Basophils % (Manual) 3 H (0.0-1.5) % Nucleated RBC % 0.0 /100WBC Absolute Seg Neuts 5.5 (1.4-5.7) Band Neutrophils # 0.1 Lymphocytes # (Manual) 4.3 H (0.6-2.4) Monocytes # (Manual) 0.9 H (0.0-0.8) Eosinophils # (Manual) 0.3 (0.0-0.7) Basophils # (Manual) 0.3 H (0.0-0.1) Nucleated RBCs # 0 K/uL Sodium 142 (136-148) mmol/L Potassium 3.1 L (3.5-5.1) mmol/L Chloride 107 (98-107) mmol/L Carbon Dioxide 25.4 (21.0-32.0) mmol/L BUN 13 (7.0-18.0) mg/dL Creatinine 0.9 (0.8-1.3) mg/dL Est Cr Clr Drug Dosing 70.08 mL/min Estimated GFR (MDRD) > 60.0 ml/min Glucose 83 (74-106) mg/dL Calcium 8.0 L (8.5-10.1) mg/dL Magnesium 1.8 (1.8-2.4) mg/dL Total Bilirubin 0.4 (0.2-1.0) mg/dL AST 24 (15-37) IU/L ALT 26 (14-63) IU/L Alkaline Phosphatase 90 (46-116) U/L Total Protein 6.7 (6.4-8.2) g/dL Albumin 2.7 L (3.4-5.0) g/dL Globulin 4.0 (2.6-4.0) g/dL Albumin/Globulin Ratio 0.7 L (0.9-1.6) Kristofer Results Last 24 Hours: Microbiology 02/10/19 08:08 Aerobic Blood Culture - Preliminary Blood - Venous NO GROWTH AFTER 1 DAY Anaerobic Blood Culture - Preliminary NO GROWTH AFTER 1 DAY 02/10/19 08:18 Aerobic Blood Culture - Preliminary Blood - Venous - Lab Draw NO GROWTH AFTER 1 DAY Anaerobic Blood Culture - Preliminary NO GROWTH AFTER 1 DAY Med Orders - Current: Current Medications Enoxaparin Sodium (Lovenox) 40 mg SUBCUT Q24H [facility] Last Admin: 02/11/19 08:19 Dose: 40 mg Heparin Sodium (Porcine) (Heparin Lock Flush 100 Units/Ml) 300 units FLUSH ASDIRECTED PRN PRN Reason: FLUSH Last Admin: 02/11/19 12:57 Dose: 300 units Hydromorphone HCl (Dilaudid) 1 mg IVPUSH Q6H PRN PRN Reason: Pain Last Admin: 02/11/19 13:03 Dose: 1 mg Sodium Chloride (Normal Saline) 1,000 mls @ 125 mls/hr IV ASDIRECTED [facility] Last Admin: 02/11/19 01:33 Dose: 125 mls/hr Ceftriaxone Sodium/Dextrose 2 (gm/ Premix) 50 mls @ 100 mls/hr IV Q24H [facility] Last Admin: 02/10/19 14:43 Dose: 100 mls/hr Lisinopril (Prinivil) 10 mg PO BEDTIME [facility] Last Admin: 02/10/19 20:37 Dose: 10 mg Lorazepam (Ativan) 1 mg IVPUSH Q8H PRN PRN Reason: Anxiety Last Admin: 02/10/19 13:03 Dose: 1 mg Metoclopramide HCl (Reglan) 10 mg IVPUSH Q6H PRN PRN Reason: Nausea Metoprolol Tartrate (Lopressor) 50 mg PO DAILY [facility] Last Admin: 02/11/19 08:18 Dose: 50 mg Oxycodone/Acetaminophen (Percocet 325-5 Mg) 1 tab PO Q4H PRN PRN Reason: Pain Last Admin: 02/11/19 08:18 Dose: 1 tab Pregabalin (Lyrica) 150 mg PO BID [facility] Last Admin: 02/11/19 08:19 Dose: 150 mg Quetiapine Fumarate (Seroquel) 50 mg PO BEDTIME [facility] Last Admin: 02/10/19 20:38 Dose: 50 mg Sertraline HCl (Zoloft) 50 mg PO BEDTIME [facility] Last Admin: 02/10/19 20:38 Dose: 50 mg Tolterodine Tartrate (Detrol La 24 Hr) 4 mg PO DAILY [facility] Last Admin: 02/11/19 08:18 Dose: 4 mg Trazodone HCl (Trazodone) 50 mg PO BEDTIME [facility] Last Admin: 02/10/19 20:38 Dose: 50 mg Discontinued Medications Sodium Chloride (Normal Saline) 1,000 mls @ 999 mls/hr IV STAT ONE Stop: 02/10/19 08:22 Last Admin: 02/10/19 07:41 Dose: 999 mls/hr Piperacillin Sod/Tazobactam (Sod 3.375 gm/ Sodium Chloride) 50 mls @ 100 mls/ hr IV Q6H [facility] Last Admin: 02/11/19 06:30 Dose: 100 mls/hr Lorazepam (Ativan) 1 mg IVPUSH ONETIME ONE Stop: 02/10/19 11:03 Last Admin: 02/10/19 11:26 Dose: 1 mg Lorazepam (Ativan) 1 mg PO ONETIME ONE Stop: 02/11/19 10:48 Last Admin: 02/11/19 11:08 Dose: 1 mg Potassium Chloride (Klor-Con M20) 40 meq PO Q4H [facility] Stop: 02/11/19 11:31 Last Admin: 02/11/19 10:48 Dose: 40 meq - Exam General: Alert, Oriented, Cooperative, No Acute Distress Lungs: Clear to Auscultation, Normal Respiratory Effort Cardiovascular: Regular Rate, Regular Rhythm GI/Abdominal Exam: Normal Bowel Sounds, Soft, Non-Tender Extremities: Normal Inspection Skin: Warm, Dry - Problem List Review Problem List Initiated/Reviewed/Updated: Yes - My Orders Last 24 Hours: My Active Orders 02/10/19 13:21 HYDROmorphone [Dilaudid] 1 mg IVPUSH Q6H PRN 02/10/19 15:00 cefTRIAXone [Rocephin in Dextrose,Iso-Osm 2 GM/50 ML] 2 gm Premix Bag 1 bag IV Q24H 02/10/19 17:38 Acetaminophen/oxyCODONE [Percocet 325-5 MG] 1 tab PO Q4H PRN 02/10/19 21:00 Lisinopril [Prinivil] 10 mg PO BEDTIME Pregabalin [Lyrica] 150 mg PO BID QUEtiapine [SEROquel] 50 mg PO BEDTIME Sertraline [Zoloft] 50 mg PO BEDTIME traZODone 50 mg PO BEDTIME 02/11/19 09:00 Metoprolol Tartrate [Lopressor] 50 mg PO DAILY Tolterodine [Detrol LA 24 Hr] 4 mg PO DAILY 02/11/19 13:52 Communication Order [RC] ROUTINE 02/11/19 13:53 KUB [Abdomen 1V Flat] [CR] Routine - Plan Plan:: A: 1. Nausea, improving 2. History of osteomyelitis of right 2nd metatarsal s/p debridement 3. Mild Leukocytosis, improving 4. Thrombocytosis 5. Hx of depression, neuropathy, hypertension P: Not sure what could be causing patient's nausea. I suspect it's multifactorial due to recent hospitalization and antibiotic use causing poor oral hydration and leading to dehydration. Patient has been improving but still a little nauseous. Has remained afebrile, blood cultures negative. Will get KUB to assess for any ileus, SBO. Continue IV NS for now. Encourage PO intake. Will continue antibiotics for his history of suspected osteomyelitis. dispo: possibly dc tomorrow
--- NOTE | 2019-02-11 18:09 | CR ---
INDICATION: Abdominal pain TECHNIQUE: Abdominal radiograph 1 views COMPARISON: 02/08/2019 FINDINGS: Bowel: A small amount of gas is present within small bowel loops in the right colon, not significantly changed from prior exam. Soft tissue: No evidence of pneumoperitoneum present. No suspicious calcifications noted. Bone: Moderate dextroscoliosis is noted with associated facet arthritis and degenerative disc disease. Miscellaneous: Moderate to severe elevation of left hemidiaphragm is noted and only partially visualized. Old fracture deformity of the right superior and inferior pubic ramus noted without change. IMPRESSION: 1. Unremarkable appearance of the visualized abdomen. Dictated by Randy Dodge MD @ 02/11/2019 6:08:40 PM Dictated by: Randy Dodge MD @ 02/11/2019 18:08:43 (Electronically Signed)
[2019-02-11] MEDS: traZODone 50 MG Tab PO SCH (20:49)
[2019-02-11] MEDS: Sertraline 50 MG Tab PO SCH (20:49)
[2019-02-11] MEDS: Lisinopril 10 MG Tab PO SCH (20:49)
[2019-02-12] MEDS: HYDROmorphone 1 MG/ML Syringe IVPUSH PRN ×2 (01:30→07:34)
[2019-02-12] MEDS: Sodium Chloride 0.9% 1,000 ML IV SCH (04:12)
[2019-02-12] MEDS: Acetaminophen/oxyCODONE 325-5 MG Tab PO PRN ×2 (04:12→08:29)
[2019-02-12 07:57] LABS: BLOOD UREA NITROGEN,BUN 13 mg/dL (7.0-18.0); CARBON DIOXIDE,CO2 23.7 mmol/L (21.0-32.0); CHLORIDE,CL 109 mmol/L (98-107); GLUCOSE RANDOM 78 mg/dL (74-106); POTASSIUM,K 4.1 mmol/L (3.5-5.1); SODIUM,NA 141 mmol/L (136-148)
[2019-02-12 08:05] VITALS: BP 166/81; PULSE 60
[2019-02-12] MEDS: Tolterodine 2 MG Cap.ER PO SCH (08:30)
[2019-02-12] MEDS: Metoprolol Tartrate 50 MG Tab PO SCH (08:30)
[2019-02-12] MEDS: Pregabalin 75 MG Cap PO SCH (08:30)
[2019-02-12] MEDS: Enoxaparin 40 MG/0.4 ML Syringe SUBCUT SCH (08:30)
--- NOTE | 2019-02-12 10:21 | PCM.DCSUM1 ---
<Aleksandar Dorman - Last Filed: 02/12/19 10:06> Discharge Summary - Hospital Course Free Text/Narrative:: 68 y/o male with history of suspected osteomyelitis of right 2nd metatarsal s/p debridement at [facility]. Was discharged home from [facility] with PICC line and daily ceftriaxone and Augmentin for total of 14 days. Patient was admitted for nausea, vomiting and dehydration likely secondary to antibiotic use. He was hydrated with NS and his pain was controlled. He remained afebrile and blood cultures were negative. In addition, continued with Ceftriaxone 2g IV daily. Culture results from [facility] showed MSSA so his Augmentin was discontinued. He was encouraged to stay hydrated and eat his meals. He will be following up with podiatry in [place]. - Discharge Data Discharge Date: 02/12/19 Discharge Disposition: Home, Self-Care 01 Condition: Fair - Patient Instructions Diet: Usual Diet as Tolerated, Drink 8-10+ Glasses/Day Activity: As Tolerated Notify Provider of: Fever, Increased Pain, Swelling and Redness, Nausea and/or Vomiting - Discharge Plan *PRESCRIPTION DRUG MONITORING PROGRAM REVIEWED*: Not Applicable *COPY OF PRESCRIPTION DRUG MONITORING REPORT IN PATIENT MICHEAL: Not Applicable Prescriptions/Med Rec: LORazepam 0.5 mg PO BID PRN #10 tab PRN Reason: Anxiety Metoclopramide [Reglan] 5 mg PO Q6H PRN #15 tab PRN Reason: Nausea Home Medications: Home Meds Lisinopril 10 mg PO BEDTIME 05/02/16 [History] Pregabalin [Lyrica] 150 mg PO BID 05/02/16 [History] Tolterodine Tartrate [Detrol LA] 4 mg PO DAILY 05/02/16 [History] Hydrocodone/Acetaminophen [Raymond 5-325 Tablet] 5 - 325 mg PO Q6HR PRN 02/08/19 [ History] Meloxicam 7.5 mg PO DAILY 02/08/19 [History] Metoprolol Tartrate 50 mg PO DAILY 02/08/19 [History] QUEtiapine [SEROquel] 50 mg PO BEDTIME 02/08/19 [History] Sertraline [Zoloft] 50 mg PO BEDTIME 02/08/19 [History] traZODone HCl [Trazodone HCl] 50 mg PO BEDTIME 02/08/19 [History] LORazepam 0.5 mg PO BID PRN #10 tab 02/11/19 [Rx] Metoclopramide [Reglan] 5 mg PO Q6H PRN #15 tab 02/11/19 [Rx] Patient Handouts: Metoclopramide tablets, Dehydration, Adult, [id number], Lorazepam tablets Referrals: [facility] [Outside] Star Jacob MD [Primary Care Provider] - 02/19/19 1:45 pm - Discharge Summary/Plan Comment DC Time >30 min.: No - Patient Data Vitals - Most Recent: Last Vital Signs Temp 36.8 C 02/12/19 08:00 Pulse 60 02/12/19 08:30 Resp 16 02/12/19 08:00 BP 166/81 H 02/12/19 08:30 Pulse Ox 96 02/12/19 08:00 Weight - Most Recent: 61.371 kg I&O - Last 24 hours: Intake & Output 02/11/19 02/12/19 02/12/19 22:59 06:59 14:59 Intake Total 1240 2910 Output Total 1035 1950 Balance 205 960 Lab Results - Last 24 hrs: Laboratory Results - last 24 hr 02/12/19 02/12/19 Range/Units 07:25 07:25 WBC 11.70 H (4.0-11.0) K/uL RBC 3.53 L (4.50-5.90) M/uL Hgb 10.9 L (13.0-17.0) g/dL Hct 32.3 L (38.0-50.0) % MCV 91.5 (80.0-98.0) fL MCH 30.9 (27.0-32.0) pg MCHC 33.7 (31.0-37.0) g/dL RDW Std Deviation 49.6 (28.0-62.0) fl RDW Coeff of Mao 15 (11.0-15.0) % Plt Count 639 H (150-400) K/uL MPV 9.90 (7.40-12.00) fL Nucleated RBC % 0.0 /100WBC Nucleated RBCs # 0 K/uL Sodium 141 (136-148) mmol/L Potassium 4.1 (3.5-5.1) mmol/L Chloride 109 H (98-107) mmol/L Carbon Dioxide 23.7 (21.0-32.0) mmol/L BUN 13 (7.0-18.0) mg/dL Creatinine 0.8 (0.8-1.3) mg/dL Est Cr Clr Drug Dosing 78.84 mL/min Estimated GFR (MDRD) > 60.0 ml/min Glucose 78 (74-106) mg/dL Calcium 8.4 L (8.5-10.1) mg/dL Magnesium 1.8 (1.8-2.4) mg/dL MEAGAN Results - Last 24 hrs: Microbiology 02/10/19 08:18 Aerobic Blood Culture - Preliminary Blood - Venous - Lab Draw NO GROWTH AFTER 2 DAYS Anaerobic Blood Culture - Preliminary NO GROWTH AFTER 2 DAYS 02/10/19 08:08 Aerobic Blood Culture - Preliminary Blood - Venous NO GROWTH AFTER 2 DAYS Anaerobic Blood Culture - Preliminary NO GROWTH AFTER 2 DAYS Med Orders - Current: Current Medications Enoxaparin Sodium (Lovenox) 40 mg SUBCUT Q24H [facility] Last Admin: 02/12/19 08:30 Dose: 40 mg Heparin Sodium (Porcine) (Heparin Lock Flush 100 Units/Ml) 300 units FLUSH ASDIRECTED PRN PRN Reason: FLUSH Last Admin: 02/11/19 12:57 Dose: 300 units Hydromorphone HCl (Dilaudid) 1 mg IVPUSH Q6H PRN PRN Reason: Pain Last Admin: 02/12/19 07:34 Dose: 1 mg Sodium Chloride (Normal Saline) 1,000 mls @ 125 mls/hr IV ASDIRECTED [facility] Last Admin: 02/12/19 04:12 Dose: 125 mls/hr Ceftriaxone Sodium/Dextrose 2 (gm/ Premix) 50 mls @ 100 mls/hr IV Q24H [facility] Last Admin: 02/11/19 14:18 Dose: 100 mls/hr Lisinopril (Prinivil) 10 mg PO BEDTIME [facility] Last Admin: 02/11/19 20:49 Dose: 10 mg Lorazepam (Ativan) 1 mg IVPUSH Q8H PRN PRN Reason: Anxiety Last Admin: 02/10/19 13:03 Dose: 1 mg Metoclopramide HCl (Reglan) 10 mg IVPUSH Q6H PRN PRN Reason: Nausea Metoprolol Tartrate (Lopressor) 50 mg PO DAILY [facility] Last Admin: 02/12/19 08:30 Dose: 50 mg Oxycodone/Acetaminophen (Percocet 325-5 Mg) 1 tab PO Q4H PRN PRN Reason: Pain Last Admin: 02/12/19 08:29 Dose: 1 tab Pregabalin (Lyrica) 150 mg PO BID [facility] Last Admin: 02/12/19 08:30 Dose: 150 mg Quetiapine Fumarate (Seroquel) 50 mg PO BEDTIME [facility] Last Admin: 02/11/19 20:49 Dose: 50 mg Sertraline HCl (Zoloft) 50 mg PO BEDTIME [facility] Last Admin: 02/11/19 20:49 Dose: 50 mg Tolterodine Tartrate (Detrol La 24 Hr) 4 mg PO DAILY [facility] Last Admin: 02/12/19 08:30 Dose: 4 mg Trazodone HCl (Trazodone) 50 mg PO BEDTIME [facility] Last Admin: 02/11/19 20:49 Dose: 50 mg Discontinued Medications Sodium Chloride (Normal Saline) 1,000 mls @ 999 mls/hr IV STAT ONE Stop: 02/10/19 08:22 Last Admin: 02/10/19 07:41 Dose: 999 mls/hr Piperacillin Sod/Tazobactam (Sod 3.375 gm/ Sodium Chloride) 50 mls @ 100 mls/ hr IV Q6H [facility] Last Admin: 02/11/19 06:30 Dose: 100 mls/hr Lorazepam (Ativan) 1 mg IVPUSH ONETIME ONE Stop: 02/10/19 11:03 Last Admin: 02/10/19 11:26 Dose: 1 mg Lorazepam (Ativan) 1 mg PO ONETIME ONE Stop: 02/11/19 10:48 Last Admin: 02/11/19 11:08 Dose: 1 mg Potassium Chloride (Klor-Con M20) 40 meq PO Q4H [facility] Stop: 02/11/19 11:31 Last Admin: 02/11/19 10:48 Dose: 40 meq <Zaheer Gonzales - Last Filed: 02/15/19 19:46> - Patient Data Vitals - Most Recent: Last Vital Signs Temp 36.8 C 02/12/19 08:00 Pulse 60 02/12/19 08:30 Resp 16 02/12/19 08:00 BP 166/81 H 02/12/19 08:30 Pulse Ox 96 02/12/19 08:00 MEAGAN Results - Last 24 hrs: Microbiology 02/10/19 08:18 Aerobic Blood Culture - Final Blood - Venous - Lab Draw NO GROWTH AFTER 5 DAYS Anaerobic Blood Culture - Final NO GROWTH AFTER 5 DAYS 02/10/19 08:08 Aerobic Blood Culture - Final Blood - Venous NO GROWTH AFTER 5 DAYS Anaerobic Blood Culture - Final NO GROWTH AFTER 5 DAYS Med Orders - Current: Current Medications Discontinued Medications Enoxaparin Sodium (Lovenox) 40 mg SUBCUT Q24H [facility] Last Admin: 02/12/19 08:30 Dose: 40 mg Heparin Sodium (Porcine) (Heparin Lock Flush 100 Units/Ml) 300 units FLUSH ASDIRECTED PRN PRN Reason: FLUSH Last Admin: 02/11/19 12:57 Dose: 300 units Hydromorphone HCl (Dilaudid) 1 mg IVPUSH Q6H PRN PRN Reason: Pain Last Admin: 02/12/19 07:34 Dose: 1 mg Sodium Chloride (Normal Saline) 1,000 mls @ 999 mls/hr IV STAT ONE Stop: 02/10/19 08:22 Last Admin: 02/10/19 07:41 Dose: 999 mls/hr Sodium Chloride (Normal Saline) 1,000 mls @ 125 mls/hr IV ASDIRECTED [facility] Last Admin: 02/12/19 04:12 Dose: 125 mls/hr Piperacillin Sod/Tazobactam (Sod 3.375 gm/ Sodium Chloride) 50 mls @ 100 mls/ hr IV Q6H [facility] Last Admin: 02/11/19 06:30 Dose: 100 mls/hr Ceftriaxone Sodium/Dextrose 2 (gm/ Premix) 50 mls @ 100 mls/hr IV Q24H [facility] Last Admin: 02/11/19 14:18 Dose: 100 mls/hr Lisinopril (Prinivil) 10 mg PO BEDTIME [facility] Last Admin: 02/11/19 20:49 Dose: 10 mg Lorazepam (Ativan) 1 mg IVPUSH ONETIME ONE Stop: 02/10/19 11:03 Last Admin: 02/10/19 11:26 Dose: 1 mg Lorazepam (Ativan) 1 mg IVPUSH Q8H PRN PRN Reason: Anxiety Last Admin: 02/10/19 13:03 Dose: 1 mg Lorazepam (Ativan) 1 mg PO ONETIME ONE Stop: 02/11/19 10:48 Last Admin: 02/11/19 11:08 Dose: 1 mg Metoclopramide HCl (Reglan) 10 mg IVPUSH Q6H PRN PRN Reason: Nausea Metoprolol Tartrate (Lopressor) 50 mg PO DAILY [facility] Last Admin: 02/12/19 08:30 Dose: 50 mg Oxycodone/Acetaminophen (Percocet 325-5 Mg) 1 tab PO Q4H PRN PRN Reason: Pain Last Admin: 02/12/19 08:29 Dose: 1 tab Potassium Chloride (Klor-Con M20) 40 meq PO Q4H [facility] Stop: 02/11/19 11:31 Last Admin: 02/11/19 10:48 Dose: 40 meq Pregabalin (Lyrica) 150 mg PO BID [facility] Last Admin: 02/12/19 08:30 Dose: 150 mg Quetiapine Fumarate (Seroquel) 50 mg PO BEDTIME [facility] Last Admin: 02/11/19 20:49 Dose: 50 mg Sertraline HCl (Zoloft) 50 mg PO BEDTIME [facility] Last Admin: 02/11/19 20:49 Dose: 50 mg Tolterodine Tartrate (Detrol La 24 Hr) 4 mg PO DAILY [facility] Last Admin: 02/12/19 08:30 Dose: 4 mg Trazodone HCl (Trazodone) 50 mg PO BEDTIME [facility] Last Admin: 02/11/19 20:49 Dose: 50 mg - Free Text/Narrative Note: I have evaluated the patient. I have discussed findings and treatment plan with resident. I agree with the assessment and plan outlined in the following note.
== END 2019-02-12 13:35 | disposition home or self-care (01) ==
LOC: MW.ED 07:14 → MW.MS 09:33
PROVIDERS: ADMIT Internal Medicine; ATTEND Internal Medicine
DX: E86.0 Dehydration (principal); R11.2 Nausea with vomiting, unspecified; M19.90 Unspecified osteoarthritis, unspecified site; D72.829 Elevated white blood cell count, unspecified; J44.9 Chronic obstructive pulmonary disease, unspecified; F32.9 Major depressive disorder, single episode, unspecified; F43.10 Post-traumatic stress disorder, unspecified; I10 Essential (primary) hypertension; D47.3 Essential (hemorrhagic) thrombocythemia; G62.9 Polyneuropathy, unspecified; F17.200 Nicotine dependence, unspecified, uncomplicated; Z89.421 Acquired absence of other right toe(s); Z89.422 Acquired absence of other left toe(s); Z98.890 Other specified postprocedural states; Z87.39 Personal history of other diseases of the musculoskeletal system and connective tissue; Z88.5 Allergy status to narcotic agent; Z79.899 Other long term (current) drug therapy
CPT/HCPCS: 36415; 71045; 74018; 80048; 80053; 81003; 82550; 83605; 83735; 84484; 85025; 85027; 87040; 93005; 96360; 96361; 96372; 99285; A9270; J0696; J1170; J1642; J1650; J2060; J2543; J7040; J7050; 96365; 96366; 96367; 96375; 96376; 99284; G0378

== ENCOUNTER 2019-02-27 17:54 | Inpatient (IN) | payer MEDICARE, OTHER ==
[2019-02-27] MEDS ORDERED: Piperacillin/Tazobactam 3.375 GM in Sodium Chloride 0.9% 50 ML IV ONE (18:05)
[2019-02-27] MEDS ORDERED: Sodium Chloride 0.9% 1,000 ML IV ONE ×2 (18:05→18:47)
--- NOTE | 2019-02-27 18:17 | EDM.PDOC ---
ED HPI GENERAL MEDICAL PROBLEM - General Chief Complaint: General Stated Complaint: SHAKING FOR LAST HALF HOUR Time Seen by Provider: 02/27/19 18:00 - History of Present Illness INITIAL COMMENTS - FREE TEXT/NARRATIVE: HISTORY AND PHYSICAL: History of present illness: Patient 68-year-old white male who presents with a concern of intermittent uncontrollable shaking he states it off and on for weeks he states he is currently being treated for osteomyelitis. He denies chest pain shortness of breath or other concern he's been given Rocephin IV daily Review of systems: As per history of present illness and below otherwise all systems reviewed and negative. Past medical history: As per history of present illness and as reviewed below otherwise noncontributory. Surgical history: As per history of present illness and as reviewed below otherwise noncontributory. Social history: No reported history of drug or alcohol abuse. Family history: As per history of present illness and as reviewed below otherwise noncontributory. Physical exam: HEENT: Atraumatic, normocephalic, pupils reactive, negative for conjunctival pallor or scleral icterus, mucous membranes moist, throat clear, neck supple, nontender, trachea midline. Lungs: Clear to auscultation, breath sounds equal bilaterally, chest nontender. Heart: S1S2, regular, negative for clicks, rubs, or JVD. Abdomen: Soft, nondistended, nontender. Negative for masses or hepatosplenomegaly. Negative for costovertebral tenderness. Pelvis: Stable nontender. Genitourinary: Deferred. Rectal: Deferred. Extremities: Bilateral forefoot amputation noted Neuro: Awake, alert, oriented. Cranial nerves II through XII unremarkable. Cerebellum unremarkable. Motor and sensory unremarkable throughout. Exam nonfocal. Diagnostics: CBC CMP blood cultures 2 lactic acid UA urine culture chest x-ray x-ray right foot Therapeutics: Zosyn vancomycin normal saline 1 L bolus Impression: #1 history of osteomyelitis #2 rule out bacteremia Definitive disposition and diagnosis as appropriate pending reevaluation and review of above. back Pain Score (Numeric/FACES): 7 - Related Data Allergies Allergy/AdvReac Type Severity Reaction Status Date / Time morphine Allergy Other Verified 02/27/19 18:11 Home Meds: Home Meds Lisinopril 10 mg PO BEDTIME 05/02/16 [History] Pregabalin [Lyrica] 150 mg PO BID 05/02/16 [History] Tolterodine Tartrate [Detrol LA] 4 mg PO DAILY 05/02/16 [History] Hydrocodone/Acetaminophen [Gustine 5-325 Tablet] 5 - 325 mg PO Q6HR PRN 02/08/19 [ History] Meloxicam 7.5 mg PO DAILY 02/08/19 [History] Metoprolol Tartrate 50 mg PO DAILY 02/08/19 [History] QUEtiapine [SEROquel] 50 mg PO BEDTIME 02/08/19 [History] Sertraline [Zoloft] 50 mg PO BEDTIME 02/08/19 [History] traZODone HCl [Trazodone HCl] 50 mg PO BEDTIME 02/08/19 [History] LORazepam 0.5 mg PO BID PRN #10 tab 02/11/19 [Rx] Metoclopramide [Reglan] 5 mg PO Q6H PRN #15 tab 02/11/19 [Rx] Past Medical History HEENT History: Reports: None Other HEENT History: wears glasses, has upper denture and lower removable partial Cardiovascular History: Reports: Hypertension Other Cardiovascular History: pericarditis Respiratory History: Reports: COPD Gastrointestinal History: Reports: None Genitourinary History: Reports: None Musculoskeletal History: Reports: Arthritis, Other (See Below) Other Musculoskeletal History: shoulder injections Neurological History: Reports: Neuropathy, Peripheral Other Neuro History: bacterial meningitis '01 with multiple organ failure ( sepsis) Psychiatric History: Reports: Depression, PTSD, Other (See Below) Endocrine/Metabolic History: Reports: None Hematologic History: Reports: None Immunologic History: Reports: None Oncologic (Cancer) History: Reports: None Dermatologic History: Reports: None - Infectious Disease History Infectious Disease History: Reports: Measles, Shingles Other Infectious Disease History: meningococal septicemia - Past Surgical History Head Surgeries/Procedures: Reports: None Other Respiratory Surgeries/Procedures: previous chest tube Male Surgical History: Reports: None Other Musculoskeletal Surgeries/Procedures:: 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 Social & Family History - Family History Family Medical History: Noncontributory - Caffeine Use Caffeine Use: Reports: Coffee Caffeine Use Comment: 6 cups of coffee a day ED ROS GENERAL - Review of Systems Review Of Systems: ROS reveals no pertinent complaints other than HPI. ED EXAM, GENERAL - Physical Exam Exam: See Below (See dictation) Course - Vital Signs Last Recorded V/S: Last Vital Signs Temp 37.3 C 02/27/19 19:15 Pulse 90 02/27/19 19:15 Resp 18 02/27/19 19:15 BP 115/80 02/27/19 19:15 Pulse Ox 95 02/27/19 19:15 - Orders/Labs/Meds Orders: Active Orders 24 hr Category Date Time Status EKG Documentation Completion [RC] STAT Care 02/27/19 18:03 Active Pulse Oximetry [RC] ASDIRECTED Care 02/27/19 18:03 Active CULTURE BLOOD [BC] Stat Lab 02/27/19 18:17 Received CULTURE BLOOD [BC] Stat Lab 02/27/19 18:27 Received UA RFX MEAGAN AND CULT IF INDIC [URIN] Stat Lab 02/27/19 18:03 Ordered Sodium Chloride 0.9% [Normal Saline] 1,000 ml Med 02/27/19 18:47 Active IV STAT Blood Culture x2 Reflex Set [OM.PC] Stat Oth 02/27/19 18:03 Ordered Medication Orders Vancomycin HCl 1 gm/ Sodium (Chloride) 250 mls @ 166 mls/hr IV ONETIME ONE Stop: 02/27/19 19:36 Last Admin: 02/27/19 19:07 Dose: 166 mls/hr Sodium Chloride (Normal Saline) 1,000 mls @ 999 mls/hr IV STAT ONE Stop: 02/27/19 19:47 Last Admin: 02/27/19 19:17 Dose: 999 mls/hr Labs: Laboratory Tests 02/27/19 02/27/19 02/27/19 Range/Units 18:17 18:17 18:17 WBC 21.78 H (4.0-11.0) K/uL RBC 4.01 L (4.50-5.90) M/uL Hgb 12.5 L (13.0-17.0) g/dL Hct 36.0 L (38.0-50.0) % MCV 89.8 (80.0-98.0) fL MCH 31.2 (27.0-32.0) pg MCHC 34.7 (31.0-37.0) g/dL RDW Std Deviation 47.0 (28.0-62.0) fl RDW Coeff of Mao 14 (11.0-15.0) % Plt Count 379 (150-400) K/uL MPV 9.40 (7.40-12.00) fL Add Manual Diff YES Neutrophils % (Manual) 93 H (48.0-80.0) % Band Neutrophils % 2 % Lymphocytes % (Manual) 3 L (16.0-40.0) % Monocytes % (Manual) 1 (0.0-15.0) % Eosinophils % (Manual) 1 (0.0-7.0) % Nucleated RBC % 0.0 /100WBC Absolute Seg Neuts 20.3 H (1.4-5.7) Band Neutrophils # 0.4 Lymphocytes # (Manual) 0.7 (0.6-2.4) Monocytes # (Manual) 0.2 (0.0-0.8) Eosinophils # (Manual) 0.2 (0.0-0.7) Nucleated RBCs # 0 K/uL INR 1.17 Lactate (0.20-2.00) mmol/L Sodium 130 L (136-148) mmol/L Potassium 3.9 (3.5-5.1) mmol/L Chloride 95 L (98-107) mmol/L Carbon Dioxide 22.9 (21.0-32.0) mmol/L BUN 34 H (7.0-18.0) mg/dL Creatinine 1.2 (0.8-1.3) mg/dL Est Cr Clr Drug Dosing 54.39 mL/min Estimated GFR (MDRD) > 60.0 ml/min Glucose 107 H (74-106) mg/dL Calcium 8.6 (8.5-10.1) mg/dL Total Bilirubin 1.0 (0.2-1.0) mg/dL AST 25 (15-37) IU/L ALT 41 (14-63) IU/L Alkaline Phosphatase 105 (46-116) U/L Total Protein 7.2 (6.4-8.2) g/dL Albumin 2.4 L (3.4-5.0) g/dL Globulin 4.8 H (2.6-4.0) g/dL Albumin/Globulin Ratio 0.5 L (0.9-1.6) 08/17/ Range/Units 18:17 WBC (4.0-11.0) K/uL RBC (4.50-5.90) M/uL Hgb (13.0-17.0) g/dL Hct (38.0-50.0) % MCV (80.0-98.0) fL MCH (27.0-32.0) pg MCHC (31.0-37.0) g/dL RDW Std Deviation (28.0-62.0) fl RDW Coeff of Mao (11.0-15.0) % Plt Count (150-400) K/uL MPV (7.40-12.00) fL Add Manual Diff Neutrophils % (Manual) (48.0-80.0) % Band Neutrophils % % Lymphocytes % (Manual) (16.0-40.0) % Monocytes % (Manual) (0.0-15.0) % Eosinophils % (Manual) (0.0-7.0) % Nucleated RBC % /100WBC Absolute Seg Neuts (1.4-5.7) Band Neutrophils # Lymphocytes # (Manual) (0.6-2.4) Monocytes # (Manual) (0.0-0.8) Eosinophils # (Manual) (0.0-0.7) Nucleated RBCs # K/uL INR Lactate 2.4 H (0.20-2.00) mmol/L Sodium (136-148) mmol/L Potassium (3.5-5.1) mmol/L Chloride (98-107) mmol/L Carbon Dioxide (21.0-32.0) mmol/L BUN (7.0-18.0) mg/dL Creatinine (0.8-1.3) mg/dL Est Cr Clr Drug Dosing mL/min Estimated GFR (MDRD) ml/min Glucose (74-106) mg/dL Calcium (8.5-10.1) mg/dL Total Bilirubin (0.2-1.0) mg/dL AST (15-37) IU/L ALT (14-63) IU/L Alkaline Phosphatase (46-116) U/L Total Protein (6.4-8.2) g/dL Albumin (3.4-5.0) g/dL Globulin (2.6-4.0) g/dL Albumin/Globulin Ratio (0.9-1.6) Meds: Medications Generic Name Dose Route Start Last Admin Trade Name Freq PRN Reason Stop Dose Admin Vancomycin HCl 1 gm/ Sodium 250 mls @ 166 mls/hr 02/27/19 18:06 02/27/19 19: 07 Chloride IV 02/27/19 19:36 166 mls/hr ONETIME ONE Administration Sodium Chloride 1,000 mls @ 999 mls/hr 02/27/19 18:47 02/27/19 19:17 Normal Saline IV 02/27/19 19:47 999 mls/hr STAT ONE Administration Discontinued Medications Generic Name Dose Route Start Last Admin Trade Name Freq PRN Reason Stop Dose Admin Piperacillin Sod/Tazobactam 50 mls @ 100 mls/hr 02/27/19 18:05 02/27/19 18:36 Sod 3.375 gm/ Sodium Chloride IV 02/27/19 18:34 100 mls/hr ONETIME ONE Administration Sodium Chloride 1,000 mls @ 999 mls/hr 02/27/19 18:05 02/27/19 18:20 Normal Saline IV 02/27/19 19:05 999 mls/hr STAT ONE Administration Departure - Departure Time of Disposition: 19:36 Disposition: Admitted As Inpatient 68 Condition: Fair Clinical Impression: Sepsis - Discharge Information Referrals: Star Jacob MD [Primary Care Provider] - Forms: ED Department Discharge - My Orders Last 24 Hours: My Active Orders 02/27/19 18:03 EKG Documentation Completion [RC] STAT Pulse Oximetry [RC] ASDIRECTED UA RFX MEAGAN AND CULT IF INDIC [URIN] Stat Blood Culture x2 Reflex Set [OM.PC] Stat 02/27/19 18:17 CULTURE BLOOD [BC] Stat 02/27/19 18:27 CULTURE BLOOD [BC] Stat 02/27/19 18:47 Sodium Chloride 0.9% [Normal Saline] 1,000 ml IV STAT - Assessment/Plan Last 24 Hours: My Active Orders 02/27/19 18:03 EKG Documentation Completion [RC] STAT Pulse Oximetry [RC] ASDIRECTED UA RFX MEAGAN AND CULT IF INDIC [URIN] Stat Blood Culture x2 Reflex Set [OM.PC] Stat 02/27/19 18:17 CULTURE BLOOD [BC] Stat 02/27/19 18:27 CULTURE BLOOD [BC] Stat 02/27/19 18:47 Sodium Chloride 0.9% [Normal Saline] 1,000 ml IV STAT
[2019-02-27 18:55] LABS: CHLORIDE,CL 95 mmol/L (98-107); SODIUM,NA 130 mmol/L (136-148)
--- NOTE | 2019-02-27 19:33 | CR ---
INDICATION: Foot Pain TECHNIQUE: Foot radiograph 2 views right COMPARISON: None FINDINGS: Bone: No acute fractures or aggressive bone lesions are identified. No evidence of osteomyelitis is seen. The patient is status post amputation of the forefoot beyond the distal metatarsals. Bones; Joint: The visualized hindfoot, midfoot, and forefoot joints are unremarkable in appearance. No significant ankle effusion is seen. Soft tissue: Unremarkable. No radiopaque foreign bodies are seen. IMPRESSIONS: 1. No acute osseous injuries or abnormalities are noted. 2. No evidence of osteomyelitis is seen. If there is a high clinical index of suspicion, further evaluation with contrast-enhanced MRI or dual-isotope bone scan is recommended, given their higher sensitivities. Dictated by Randy Dodge MD @ 02/27/2019 7:32:43 PM Dictated by: Randy Dodge MD @ 02/27/2019 19:32:50 (Electronically Signed)
--- NOTE | 2019-02-27 19:35 | CR ---
INDICATION: Chest pain and shortness of breath TECHNIQUE: Chest 1 views COMPARISON: 02/10/2019 FINDINGS: Cardiovascular and mediastinum: Heart size and vasculature are normal in caliber and appearance. Left-sided PICC remains in satisfactory position. Lungs and pleural spaces: Stable chronic left basilar scarring and volume loss. Remainder of the lungs and pleural spaces are clear. No pneumothorax. Bones and soft tissues: No significant findings. IMPRESSION: No acute findings and no significant changes from the prior exam. Dictated by Herb Arriola MD @ Feb 27 2019 7:32PM Signed by Dr. Herb Arriola @ Feb 27 2019 7:34PM
[2019-02-27] MEDS ORDERED: Acetaminophen 500 MG Tab PO ONE (19:39)
[2019-02-27] MEDS ORDERED: Acetaminophen 325 MG Tab PO PRN (21:25)
[2019-02-27] MEDS: LORazepam 0.5 MG Tab PO PRN (22:10)
[2019-02-27] MEDS: oxyCODONE 5 MG Tab PO PRN (22:10)
[2019-02-27] MEDS: traZODone 50 MG Tab PO SCH (22:12)
[2019-02-27] MEDS: Pregabalin 75 MG Cap PO SCH (22:12)
[2019-02-27] MEDS: Sertraline 50 MG Tab PO SCH (22:12)
[2019-02-27] MEDS: HYDROmorphone 1 MG/ML Syringe IVPUSH PRN (22:13)
[2019-02-28] MEDS ORDERED: Vancomycin 1 GM SDV ONE (05:09)
[2019-02-28] MEDS ORDERED: Sodium Chloride 0.9% 250 ML ONE (05:13)
[2019-02-28] MEDS: Sodium Chloride 0.9% 1,000 ML IV SCH ×2 (05:20→17:24)
[2019-02-28] MEDS: HYDROmorphone 1 MG/ML Syringe IVPUSH PRN ×4 (05:21→23:48)
[2019-02-28] MEDS: oxyCODONE 5 MG Tab PO PRN ×4 (05:22→20:25)
[2019-02-28 06:52] LABS: CHLORIDE,CL 102 mmol/L (98-107); SODIUM,NA 134 mmol/L (136-148)
--- NOTE | 2019-02-28 07:17 | PCM.HP.2 ---
H&P History of Present Illness - General Date of Service: 02/28/19 Admit Problem/Dx: Admission Diagnosis/Problem Admission Diagnosis/Problem Sepsis Source of Information: Patient History Limitations: Reports: No Limitations - History of Present Illness Initial Comments - Free Text/Narative: The patient is a 68-year-old gentleman who had presented to the emergency department with a concern for excessive sweating and dehydration. The patient was just recently discharged from hospitalization on February 12, 2019. The patient has a history of osteomyelitis in the right second metatarsal and the patient says that he has not been able to tolerate antibiotics. He did have cultures obtained in [facility] which showed methicillin sensitive staph aureus. 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 The patient also has had fever and chills. Patient has not had any changes since his previous discharge on February 12, 2019. Onset of Symptoms: Reports: Gradual Duration of Symptoms: Reports: Day(s): Location: Reports: Generalized Severity: Moderate Improves with: Reports: None Worsens with: Reports: None Associated Symptoms: Reports: Fever/Chills Bilateral Feet Pain Score (Numeric/FACES): 8 back Pain Score (Numeric/FACES): 8 - Related Data Allergies/Adverse Reactions: Allergies Allergy/AdvReac Type Severity Reaction Status Date / Time morphine Allergy Other Verified 02/27/19 21:05 Home Medications: Home Meds Lisinopril 10 mg PO BEDTIME 05/02/16 [History] Pregabalin [Lyrica] 150 mg PO BID 05/02/16 [History] Tolterodine Tartrate [Detrol LA] 4 mg PO DAILY 05/02/16 [History] Hydrocodone/Acetaminophen [[place] 5-325 Tablet] 5 - 325 mg PO Q6HR PRN 02/08/19 [ History] Meloxicam 7.5 mg PO DAILY 02/08/19 [History] Metoprolol Tartrate 50 mg PO DAILY 02/08/19 [History] QUEtiapine [SEROquel] 50 mg PO BEDTIME 02/08/19 [History] Sertraline [Zoloft] 50 mg PO BEDTIME 02/08/19 [History] traZODone HCl [Trazodone HCl] 50 mg PO BEDTIME 02/08/19 [History] Metoclopramide [Reglan] 5 mg PO Q6H PRN #15 tab 02/11/19 [Rx] LORazepam 0.5 mg PO BID 02/27/19 [History] Past Medical History HEENT History: Reports: Impaired Vision Other HEENT History: wears glasses, has upper denture and lower removable partial Cardiovascular History: Reports: Hypertension Other Cardiovascular History: pericarditis Respiratory History: Reports: COPD, Intubation, Previous Gastrointestinal History: Reports: None Genitourinary History: Reports: Retention, Urinary Musculoskeletal History: Reports: Arthritis, Back Pain, Chronic, Osteoarthritis , Other (See Below) Other Musculoskeletal History: shoulder injections Neurological History: Reports: Neuropathy, Peripheral Other Neuro History: bacterial meningitis '01 with multiple organ failure ( sepsis) Psychiatric History: Reports: Anxiety, Depression, PTSD Endocrine/Metabolic History: Reports: None Hematologic History: Reports: Anemia, Blood Transfusion(s) Immunologic History: Reports: None Oncologic (Cancer) History: Reports: None Dermatologic History: Reports: None - Infectious Disease History Infectious Disease History: Reports: Measles, Shingles Other Infectious Disease History: meningococal septicemia - Past Surgical History Head Surgeries/Procedures: Reports: None HEENT Surgical History: Reports: None Other Respiratory Surgeries/Procedures: previous chest tube Male Surgical History: Reports: None Musculoskeletal Surgical History: Reports: Amputation Other Musculoskeletal Surgeries/Procedures:: 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 Social & Family History - Family History Family Medical History: Noncontributory Cardiac: Reports: Hypertension - Tobacco Use Smoking Status *Q: Unknown Ever Smoked Years of Tobacco use: 50 Packs/Tins Daily: 1 - Caffeine Use Caffeine Use: Reports: Coffee Other Caffeine Use: 2-3 cups Caffeine Use Comment: 6 cups of coffee a day - Recreational Drug Use Recreational Drug Use: No H&P Review of Systems - Review of Systems: Review Of Systems: See Below General: Reports: Fever, Chills, Weakness, Diaphoresis HEENT: Reports: No Symptoms Pulmonary: Reports: No Symptoms Cardiovascular: Reports: No Symptoms Gastrointestinal: Reports: No Symptoms Genitourinary: Reports: No Symptoms Musculoskeletal: Reports: No Symptoms Skin: Reports: No Symptoms Psychiatric: Reports: No Symptoms, Other Hematologic/Lymphatic: Reports: No Symptoms Immunologic: Reports: No Symptoms Exam - Exam Exam: See Below - Vital Signs Vital Signs: Last Vital Signs Temp 37.7 C 02/28/19 04:37 Pulse 80 02/28/19 04:37 Resp 18 02/28/19 04:37 BP 126/79 02/28/19 04:37 Pulse Ox 95 02/28/19 04:37 Weight: 61.2 kg - Exam Quality Assessment: Central Line/PICC. No: Supplemental Oxygen General: Alert, Oriented, Cooperative HEENT: Conjunctiva Clear, EACs Clear, EOMI, Nares Patent, PERRLA. No: Mucosa Moist & [place] (Dry) Neck: Supple, Trachea Midline Lungs: Clear to Auscultation, Normal Respiratory Effort Cardiovascular: Regular Rhythm, Irregular Rhythm GI/Abdominal Exam: Normal Bowel Sounds, Soft, Non-Tender, No Distention Back Exam: Normal Inspection (Age-related changes) Extremities: No: Normal Inspection (Bilateral MTA) Skin: Warm, Dry, Intact Neurological: Cranial Nerves Intact Neuro Extensive - Mental Status: Alert Psychiatric: Alert, Normal Affect, Normal Mood - Patient Data Lab Results Last 24 hrs: Laboratory Results - last 24 hr 02/27/19 02/27/19 02/27/19 Range/Units 18:17 18:17 18:17 WBC 21.78 H (4.0-11.0) K/uL RBC 4.01 L (4.50-5.90) M/uL Hgb 12.5 L (13.0-17.0) g/dL Hct 36.0 L (38.0-50.0) % MCV 89.8 (80.0-98.0) fL MCH 31.2 (27.0-32.0) pg MCHC 34.7 (31.0-37.0) g/dL RDW Std Deviation 47.0 (28.0-62.0) fl RDW Coeff of Mao 14 (11.0-15.0) % Plt Count 379 (150-400) K/uL MPV 9.40 (7.40-12.00) fL Add Manual Diff YES Neutrophils % (Manual) 93 H (48.0-80.0) % Band Neutrophils % 2 % Lymphocytes % (Manual) 3 L (16.0-40.0) % Monocytes % (Manual) 1 (0.0-15.0) % Eosinophils % (Manual) 1 (0.0-7.0) % Nucleated RBC % 0.0 /100WBC Absolute Seg Neuts 20.3 H (1.4-5.7) Band Neutrophils # 0.4 Lymphocytes # (Manual) 0.7 (0.6-2.4) Monocytes # (Manual) 0.2 (0.0-0.8) Eosinophils # (Manual) 0.2 (0.0-0.7) Nucleated RBCs # 0 K/uL INR 1.17 Lactate (0.20-2.00) mmol/L Sodium 130 L (136-148) mmol/L Potassium 3.9 (3.5-5.1) mmol/L Chloride 95 L (98-107) mmol/L Carbon Dioxide 22.9 (21.0-32.0) mmol/L BUN 34 H (7.0-18.0) mg/dL Creatinine 1.2 (0.8-1.3) mg/dL Est Cr Clr Drug Dosing 54.39 mL/min Estimated GFR (MDRD) > 60.0 ml/min Glucose 107 H (74-106) mg/dL Calcium 8.6 (8.5-10.1) mg/dL Total Bilirubin 1.0 (0.2-1.0) mg/dL AST 25 (15-37) IU/L ALT 41 (14-63) IU/L Alkaline Phosphatase 105 (46-116) U/L Total Protein 7.2 (6.4-8.2) g/dL Albumin 2.4 L (3.4-5.0) g/dL Globulin 4.8 H (2.6-4.0) g/dL Albumin/Globulin Ratio 0.5 L (0.9-1.6) Urine Color Urine Appearance Urine pH (5.0-8.0) Ur Specific [place] (1.001-1.035) Urine Protein (NEGATIVE) mg/dL Urine Glucose (UA) (NEGATIVE) mg/dL Urine Ketones (NEGATIVE) mg/dL Urine Occult Blood (NEGATIVE) Urine Nitrite (NEGATIVE) Urine Bilirubin (NEGATIVE) Urine Urobilinogen (<2.0) EU/dL Ur Leukocyte Esterase (NEGATIVE) Urine RBC (0-2/HPF) Urine WBC (0-5/HPF) Ur Epithelial Cells (NONE-FEW) Urine Bacteria (NEGATIVE) 02/27/19 02/27/19 02/28/19 Range/Units 18:17 19:58 00:25 WBC (4.0-11.0) K/uL RBC (4.50-5.90) M/uL Hgb (13.0-17.0) g/dL Hct (38.0-50.0) % MCV (80.0-98.0) fL MCH (27.0-32.0) pg MCHC (31.0-37.0) g/dL RDW Std Deviation (28.0-62.0) fl RDW Coeff of Mao (11.0-15.0) % Plt Count (150-400) K/uL MPV (7.40-12.00) fL Add Manual Diff Neutrophils % (Manual) (48.0-80.0) % Band Neutrophils % % Lymphocytes % (Manual) (16.0-40.0) % Monocytes % (Manual) (0.0-15.0) % Eosinophils % (Manual) (0.0-7.0) % Nucleated RBC % /100WBC Absolute Seg Neuts (1.4-5.7) Band Neutrophils # Lymphocytes # (Manual) (0.6-2.4) Monocytes # (Manual) (0.0-0.8) Eosinophils # (Manual) (0.0-0.7) Nucleated RBCs # K/uL INR Lactate 2.4 H 1.2 (0.20-2.00) mmol/L Sodium (136-148) mmol/L Potassium (3.5-5.1) mmol/L Chloride (98-107) mmol/L Carbon Dioxide (21.0-32.0) mmol/L BUN (7.0-18.0) mg/dL Creatinine (0.8-1.3) mg/dL Est Cr Clr Drug Dosing mL/min Estimated GFR (MDRD) ml/min Glucose (74-106) mg/dL Calcium (8.5-10.1) mg/dL Total Bilirubin (0.2-1.0) mg/dL AST (15-37) IU/L ALT (14-63) IU/L Alkaline Phosphatase (46-116) U/L Total Protein (6.4-8.2) g/dL Albumin (3.4-5.0) g/dL Globulin (2.6-4.0) g/dL Albumin/Globulin Ratio (0.9-1.6) Urine Color DARK YELLOW Urine Appearance SLT CLOUDY Urine pH 6.5 (5.0-8.0) Ur Specific [place] 1.020 (1.001-1.035) Urine Protein TRACE H (NEGATIVE) mg/dL Urine Glucose (UA) NEGATIVE (NEGATIVE) mg/dL Urine Ketones TRACE H (NEGATIVE) mg/dL Urine Occult Blood NEGATIVE (NEGATIVE) Urine Nitrite NEGATIVE (NEGATIVE) Urine Bilirubin NEGATIVE (NEGATIVE) Urine Urobilinogen 0.2 (<2.0) EU/dL Ur Leukocyte Esterase NEGATIVE (NEGATIVE) Urine RBC 0-1 (0-2/HPF) Urine WBC 0-1 (0-5/HPF) Ur Epithelial Cells RARE (NONE-FEW) Urine Bacteria RARE (NEGATIVE) 02/28/19 02/28/19 Range/Units 06:25 06:25 WBC 19.16 H (4.0-11.0) K/uL RBC 3.50 L (4.50-5.90) M/uL Hgb 10.7 L (13.0-17.0) g/dL Hct 31.6 L (38.0-50.0) % MCV 90.3 (80.0-98.0) fL MCH 30.6 (27.0-32.0) pg MCHC 33.9 (31.0-37.0) g/dL RDW Std Deviation 47.3 (28.0-62.0) fl RDW Coeff of Mao 14 (11.0-15.0) % Plt Count 330 (150-400) K/uL MPV 9.10 (7.40-12.00) fL Add Manual Diff YES Neutrophils % (Manual) 87 H (48.0-80.0) % Band Neutrophils % 2 % Lymphocytes % (Manual) 9 L (16.0-40.0) % Monocytes % (Manual) 1 (0.0-15.0) % Eosinophils % (Manual) 1 (0.0-7.0) % Nucleated RBC % 0.0 /100WBC Absolute Seg Neuts 16.7 H (1.4-5.7) Band Neutrophils # 0.4 Lymphocytes # (Manual) 1.7 (0.6-2.4) Monocytes # (Manual) 0.2 (0.0-0.8) Eosinophils # (Manual) 0.2 (0.0-0.7) Nucleated RBCs # 0 K/uL INR Lactate (0.20-2.00) mmol/L Sodium 134 L (136-148) mmol/L Potassium 3.9 (3.5-5.1) mmol/L Chloride 102 (98-107) mmol/L Carbon Dioxide 21.0 (21.0-32.0) mmol/L BUN 25 H (7.0-18.0) mg/dL Creatinine 1.1 (0.8-1.3) mg/dL Est Cr Clr Drug Dosing 57.18 mL/min Estimated GFR (MDRD) > 60.0 ml/min Glucose 94 (74-106) mg/dL Calcium 7.9 L (8.5-10.1) mg/dL Total Bilirubin (0.2-1.0) mg/dL AST (15-37) IU/L ALT (14-63) IU/L Alkaline Phosphatase (46-116) U/L Total Protein (6.4-8.2) g/dL Albumin (3.4-5.0) g/dL Globulin (2.6-4.0) g/dL Albumin/Globulin Ratio (0.9-1.6) Urine Color Urine Appearance Urine pH (5.0-8.0) Ur Specific [place] (1.001-1.035) Urine Protein (NEGATIVE) mg/dL Urine Glucose (UA) (NEGATIVE) mg/dL Urine Ketones (NEGATIVE) mg/dL Urine Occult Blood (NEGATIVE) Urine Nitrite (NEGATIVE) Urine Bilirubin (NEGATIVE) Urine Urobilinogen (<2.0) EU/dL Ur Leukocyte Esterase (NEGATIVE) Urine RBC (0-2/HPF) Urine WBC (0-5/HPF) Ur Epithelial Cells (NONE-FEW) Urine Bacteria (NEGATIVE) Result Diagrams: 02/28/19 06:25 02/28/19 06:25 - Problem List (1) Sepsis SNOMED Code(s): 47553344 ICD Code: A41.9 - SEPSIS, UNSPECIFIED ORGANISM Status: Acute Priority: High Current Visit: Yes Qualifiers: Sepsis type: sepsis due to unspecified organism Sepsis acute organ dysfunction status: without acute organ dysfunction Qualified Code(s): A41.9 - Sepsis, unspecified organism (2) Osteomyelitis SNOMED Code(s): 83095968 ICD Code: M86.9 - OSTEOMYELITIS, UNSPECIFIED Status: Chronic Priority: Medium Current Visit: Yes Qualifiers: Osteomyelitis type: chronic multifocal Osteomyelitis location: foot Laterality: unspecified laterality Qualified Code(s): M86.379 - Chronic multifocal osteomyelitis, unspecified ankle and foot (3) Dehydration SNOMED Code(s): 22857610 ICD Code: E86.0 - DEHYDRATION Status: Chronic Priority: High Current Visit: Yes (4) Right foot infection SNOMED Code(s): 636426992 ICD Code: L08.9 - LOCAL INFECTION OF THE SKIN AND SUBCUTANEOUS TISSUE, UNSP Status: Chronic Priority: Medium Current Visit: Yes Problem List Initiated/Reviewed/Updated: Yes Orders Last 24hrs: Active Orders 24 hr Category Date Time Status Patient Status [ADT] Stat ADT 02/27/19 19:37 Active EKG 12 Lead [EKG Documentation Completion] [RC] AM Care 02/28/19 06:00 Active EKG Documentation Completion [RC] STAT Care 02/27/19 18:03 Active Pulse Oximetry [RC] ASDIRECTED Care 02/27/19 18:03 Active Telemetry Monitoring [Cardiac Monitoring] [RC] Q8HR Care 02/28/19 06:00 Active Regular Diet [DIET] Diet 02/27/19 Dinner Active BASIC METABOLIC PANEL,BMP [CHEM] AM Lab 03/01/19 05:11 Ordered CBC WITH AUTO DIFF [HEME] AM Lab 03/01/19 05:11 Ordered CULTURE BLOOD [BC] Stat Lab 02/27/19 18:17 Received CULTURE BLOOD [BC] Stat Lab 02/27/19 18:27 Received VANCOMYCIN TROUGH [CHEM] Timed Lab 03/01/19 17:00 Ordered Acetaminophen [Tylenol] Med 02/27/19 21:25 Active 650 mg PO Q6H PRN HYDROmorphone [Dilaudid] Med 02/27/19 21:29 Active 1 mg IVPUSH Q6H PRN LORazepam [Ativan] Med 02/27/19 21:30 Active 0.5 mg PO BID PRN Lisinopril [Prinivil] Med 02/28/19 09:00 Active 10 mg PO DAILY Meloxicam [Mobic] Med 02/28/19 09:00 Active 7.5 mg PO DAILY Metoprolol Tartrate [Lopressor] Med 02/28/19 09:00 Active 50 mg PO Q24H Pharmacy to Dose - Vancomycin Med 02/27/19 21:30 Active 1 dose .XX ASDIRECTED Pregabalin [Lyrica] Med 02/27/19 21:45 Active 150 mg PO BID QUEtiapine [SEROquel] Med 02/27/19 21:00 Active 50 mg PO BEDTIME Sertraline [Zoloft] Med 02/27/19 21:00 Active 50 mg PO BEDTIME Sodium Chloride 0.9% [Normal Saline] 1,000 ml Med 02/27/19 21:30 Active IV ASDIRECTED Tolterodine [Detrol LA 24 Hr] Med 02/28/19 09:00 Active 4 mg PO DAILY Vancomycin [Vancocin] 1 gm Med 02/28/19 06:00 Active Sodium Chloride 0.9% [Normal Saline (AdvBag)] 250 ml IV Q12H oxyCODONE Med 02/27/19 21:24 Active 5 mg PO Q4H PRN traZODone Med 02/27/19 21:00 Active 50 mg PO BEDTIME Blood Culture x2 Reflex Set [OM.PC] Stat Oth 02/27/19 18:03 Ordered Code Status [Resuscitation Status] Routine Resus Stat 02/27/19 21:21 Ordered Medication Orders Acetaminophen (Tylenol) 650 mg PO Q6H PRN PRN Reason: Fever Hydromorphone HCl (Dilaudid) 1 mg IVPUSH Q6H PRN PRN Reason: Pain (severe 7-10) Last Admin: 02/28/19 05:21 Dose: 1 mg Admin: 02/27/19 22:13 Dose: 1 mg Sodium Chloride (Normal Saline) 1,000 mls @ 100 mls/hr IV ASDIRECTED SEAN Last Admin: 02/28/19 05:20 Dose: 100 mls/hr Vancomycin HCl 1 gm/ Sodium (Chloride) 250 mls @ 166 mls/hr IV Q12H SEAN Last Admin: 02/28/19 05:23 Dose: 166 mls/hr Lisinopril (Prinivil) 10 mg PO DAILY [facility] Lorazepam (Ativan) 0.5 mg PO BID PRN PRN Reason: Anxiety Last Admin: 02/27/19 22:10 Dose: 0.5 mg Meloxicam (Mobic) 7.5 mg PO DAILY SEAN Metoprolol Tartrate (Lopressor) 50 mg PO Q24H [facility]AN Oxycodone HCl (Oxycodone) 5 mg PO Q4H PRN PRN Reason: Pain (moderate 4-6) Last Admin: 02/28/19 05:22 Dose: 5 mg Admin: 02/27/19 22:10 Dose: 5 mg Pregabalin (Lyrica) 150 mg PO BID [facility] Last Admin: 02/27/19 22:12 Dose: 150 mg Quetiapine Fumarate (Seroquel) 50 mg PO BEDTIME [facility] Last Admin: 02/27/19 22:12 Dose: 50 mg Sertraline HCl (Zoloft) 50 mg PO BEDTIME [facility] Last Admin: 02/27/19 22:12 Dose: 50 mg Tolterodine Tartrate (Detrol La 24 Hr) 4 mg PO DAILY [facility] Trazodone HCl (Trazodone) 50 mg PO BEDTIME [facility] Last Admin: 02/27/19 22:12 Dose: 50 mg Vancomycin HCl (Pharmacy To Dose - Vancomycin) 1 dose .XX ASDIRECTED [facility] Assessment/Plan Comment:: The patient is a 68-year-old gentleman who has had some significant decline over the past several months. The patient does have enough criteria to meet the diagnosis of sepsis. The patient will be kept on IV fluids normal saline at 100 mL per hour to avoid pulmonary overload. The patient initially had been started on vancomycin and Zosyn in the emergency department due to consideration for osteomyelitis. The patient will be kept on Zosyn for now. Also, the patient's previously placed PICC line will be discontinued and the tip cultured. There is concern that this has been acting as a source of the sepsis. The patient will also be kept on a regular diet as tolerated. I've ordered repeat laboratory studies. I've also ordered a CRP and a sedimentation rate. The patient will also have a 2-D echocardiogram to help exclude valvular vegetations due to the PICC line. The patient also have anticoagulation with heparin. He's been encouraged to ambulate. - Mortality Measure Prognosis:: Good
[2019-02-28] MEDS: Tolterodine 2 MG Cap.ER PO SCH (08:25)
[2019-02-28] MEDS: Meloxicam 7.5 MG Tab PO SCH (08:26)
[2019-02-28] MEDS: Pregabalin 75 MG Cap PO SCH ×2 (08:26→20:24)
[2019-02-28] MEDS ORDERED: Metoclopramide 5 MG Tab PO PRN (08:59)
[2019-02-28] MEDS ORDERED: TOLTERODINE TARTRATE 4 MG PO SCH (09:00)
[2019-02-28] MEDS ORDERED: Metoprolol Tartrate 50 MG Tab PO SCH (09:00)
[2019-02-28] MEDS ORDERED: Non-Formulary Medication 1 Each (Lorazepam 0.5 MG) PO SCH (09:00)
[2019-02-28] MEDS ORDERED: Lisinopril 10 MG Tab PO SCH ×3 (09:00→21:00)
[2019-02-28] MEDS ORDERED: Non-Formulary Medication 1 Each (Pregabalin [Lyrica] 150 MG) PO SCH (09:00)
[2019-02-28] MEDS ORDERED: Meloxicam 7.5 MG Tab PO SCH (09:00)
[2019-02-28] MEDS: Piperacillin/Tazobactam 3.375 GM in Sodium Chloride 0.9% 50 ML IV SCH ×4 (10:04→21:16)
[2019-02-28] MEDS: Heparin Sodium 5,000 Units/ML Vial SUBCUT SCH ×2 (10:05→17:30)
[2019-02-28] MEDS: Metoprolol Tartrate 50 MG Tab PO SCH (12:20)
[2019-02-28] MEDS: LORazepam 0.5 MG Tab PO PRN (15:29)
[2019-02-28] MEDS: Sertraline 50 MG Tab PO SCH (20:25)
[2019-02-28] MEDS: traZODone 50 MG Tab PO SCH (20:25)
[2019-02-28] MEDS ORDERED: Sertraline 50 MG Tab PO SCH (21:00)
[2019-02-28] MEDS ORDERED: traZODone 50 MG Tab PO SCH (21:00)
[2019-03-01] MEDS: Heparin Sodium 5,000 Units/ML Vial SUBCUT SCH ×2 (02:54→09:59)
[2019-03-01] MEDS: oxyCODONE 5 MG Tab PO PRN ×2 (02:55→08:19)
[2019-03-01] MEDS: Piperacillin/Tazobactam 3.375 GM in Sodium Chloride 0.9% 50 ML IV SCH ×2 (03:46→09:58)
[2019-03-01] MEDS: Sodium Chloride 0.9% 1,000 ML IV SCH (05:56)
[2019-03-01 06:05] LABS: CHLORIDE,CL 104 mmol/L (98-107); SODIUM,NA 134 mmol/L (136-148)
[2019-03-01] MEDS: HYDROmorphone 1 MG/ML Syringe IVPUSH PRN (06:05)
--- NOTE | 2019-03-01 07:41 | PCM.DCSUM1 ---
Discharge Summary - Hospital Course Diagnosis: Stroke: No - Discharge Data Discharge Date: 03/01/19 Discharge Disposition: Home, Self-Care 01 Condition: Stable - Discharge Diagnosis/Problem(s) (1) Sepsis SNOMED Code(s): 88763867 ICD Code: A41.9 - SEPSIS, UNSPECIFIED ORGANISM Status: Resolved Priority : High Qualifiers: Sepsis type: methicillin susceptible Staphylococcus aureus Sepsis acute organ dysfunction status: without acute organ dysfunction Qualified Code(s): A41.01 - Sepsis due to Methicillin susceptible Staphylococcus aureus (2) Osteomyelitis SNOMED Code(s): 11968179 ICD Code: M86.9 - OSTEOMYELITIS, UNSPECIFIED Status: Chronic Priority: Medium Qualifiers: Osteomyelitis type: chronic multifocal Osteomyelitis location: foot Laterality: unspecified laterality Qualified Code(s): M86.379 - Chronic multifocal osteomyelitis, unspecified ankle and foot (3) Dehydration SNOMED Code(s): 77617984 ICD Code: E86.0 - DEHYDRATION Status: Chronic Priority: High (4) Right foot infection SNOMED Code(s): 892374650 ICD Code: L08.9 - LOCAL INFECTION OF THE SKIN AND SUBCUTANEOUS TISSUE, UNSP Status: Chronic Priority: Medium - Patient Summary/Data Hospital Course: The patient is a 68-year-old gentleman who had presented to the emergency department with a concern for excessive sweating and dehydration. The patient was just recently discharged from hospitalization on February 12, 2019. The patient has a history of osteomyelitis in the right second metatarsal and the patient says that he has not been able to tolerate antibiotics. He did have cultures obtained in [facility] which showed methicillin sensitive staph aureus. The patient has had difficulty in maintaining hydration and he has called and talked to his railroad yard worker in [place]. The patient also had been started on vancomycin as part of the treatment for his osteomyelitis. The patient also says that he has an appointment with his railroad yard worker today in [facility]. Should also be noted the patient did have markedly elevation of his sedimentation rate which is at 73 mm per hour and his CRP was also markedly elevated at 21.3 mg/dL. Both these elevated with likely indicate osteomyelitis continuing. The patient was rehydrated with the use of normal saline. By day of discharge the patient felt much better. He felt like it was important to visit his railroad yard worker in order to receive further treatment with regards to the osteomyelitis. Patient had tolerated the vancomycin well. The patient also has been hemodynamically stable. His white blood cell count had improved from 21, 000 down to 12,000 by day of discharge. The patient has been recommended to continue with his diet as tolerated. He is also to have activity as tolerated. The patient has been hemodynamically stable and he is discharged from acute hospitalization with a recommendation to follow-up with his primary diagnosis for further evaluation and treatment of the osteomyelitis. - Patient Instructions Diet: Heart Healthy Diet Activity: As Tolerated Notify Provider of: Fever, Increased Pain - Discharge Plan *PRESCRIPTION DRUG MONITORING PROGRAM REVIEWED*: No *COPY OF PRESCRIPTION DRUG MONITORING REPORT IN PATIENT MICHEAL: No Home Medications: Home Meds Lisinopril 10 mg PO BEDTIME 05/02/16 [History] Pregabalin [Lyrica] 150 mg PO BID 05/02/16 [History] Tolterodine Tartrate [Detrol LA] 4 mg PO DAILY 05/02/16 [History] Hydrocodone/Acetaminophen [[place] 5-325 Tablet] 5 - 325 mg PO Q6HR PRN 02/08/19 [ History] Meloxicam 7.5 mg PO DAILY 02/08/19 [History] Metoprolol Tartrate 50 mg PO DAILY 02/08/19 [History] QUEtiapine [SEROquel] 50 mg PO BEDTIME 02/08/19 [History] Sertraline [Zoloft] 50 mg PO BEDTIME 02/08/19 [History] traZODone HCl [Trazodone HCl] 50 mg PO BEDTIME 02/08/19 [History] Metoclopramide [Reglan] 5 mg PO Q6H PRN #15 tab 02/11/19 [Rx] LORazepam 0.5 mg PO BID 02/27/19 [History] Oxygen Therapy Mode: Room Air Patient Handouts: Sepsis, Adult, Dehydration, Adult, [id number] Referrals: Star Jacob MD [Primary Care Provider] - 03/08/19 7:45 am (Must arrive at 730 with photo ID and insurence card, or they will not be able to see you.) - Discharge Summary/Plan Comment DC Time >30 min.: Yes - General Info Date of Service: 03/01/19 Admission Dx/Problem (Free Text: Admission Diagnosis/Problem Admission Diagnosis/Problem Sepsis secondary to osteomyelitis right foot, methicillin sensitive staph aureus Functional Status: Reports: Pain Controlled - Review of Systems General: Reports: No Symptoms HEENT: Reports: No Symptoms Pulmonary: Reports: No Symptoms Cardiovascular: Reports: No Symptoms Gastrointestinal: Reports: No Symptoms Genitourinary: Reports: No Symptoms Musculoskeletal: Reports: No Symptoms Skin: Reports: No Symptoms Neurological: Reports: No Symptoms Psychiatric: Reports: No Symptoms - Patient Data Vitals - Most Recent: Last Vital Signs Temp 36.9 C 03/01/19 03:30 Pulse 79 03/01/19 03:30 Resp 16 03/01/19 03:30 BP 115/64 03/01/19 03:30 Pulse Ox 94 L 03/01/19 03:30 Weight - Most Recent: 61.2 kg I&O - Last 24 hours: Intake & Output 02/28/19 03/01/19 03/01/19 22:59 06:59 14:59 Intake Total 2435 2997 Output Total 955 1550 Balance 1480 1447 Lab Results - Last 24 hrs: Laboratory Results - last 24 hr 02/28/19 02/28/19 02/28/19 Range/Units 06:23 06:25 06:25 WBC (4.0-11.0) K/uL RBC (4.50-5.90) M/uL Hgb (13.0-17.0) g/dL Hct (38.0-50.0) % MCV (80.0-98.0) fL MCH (27.0-32.0) pg MCHC (31.0-37.0) g/dL RDW Std Deviation (28.0-62.0) fl RDW Coeff of Mao (11.0-15.0) % Plt Count (150-400) K/uL MPV (7.40-12.00) fL Neut % (Auto) (48.0-80.0) % Lymph % (Auto) (16.0-40.0) % [place] % (Auto) (0.0-15.0) % Eos % (Auto) (0.0-7.0) % Baso % (Auto) (0.0-1.5) % Neut # (Auto) (1.4-5.7) K/uL Lymph # (Auto) (0.6-2.4) K/uL [place] # (Auto) (0.0-0.8) K/uL Eos # (Auto) (0.0-0.7) K/uL Baso # (Auto) (0.0-0.1) K/uL Nucleated RBC % /100WBC Nucleated RBCs # K/uL ESR 73 H (0-19) mm/hr Sodium (136-148) mmol/L Potassium (3.5-5.1) mmol/L Chloride (98-107) mmol/L Carbon Dioxide (21.0-32.0) mmol/L BUN (7.0-18.0) mg/dL Creatinine (0.8-1.3) mg/dL Est Cr Clr Drug Dosing mL/min Estimated GFR (MDRD) ml/min Glucose (74-106) mg/dL Calcium (8.5-10.1) mg/dL Magnesium 1.8 (1.8-2.4) mg/dL C-Reactive Protein 21.30 H (0.00-0.90) mg/dL 03/01/19 03/01/19 Range/Units 05:17 05:17 WBC 12.02 H (4.0-11.0) K/uL RBC 3.04 L (4.50-5.90) M/uL Hgb 9.2 L (13.0-17.0) g/dL Hct 27.4 L (38.0-50.0) % MCV 90.1 (80.0-98.0) fL MCH 30.3 (27.0-32.0) pg MCHC 33.6 (31.0-37.0) g/dL RDW Std Deviation 46.5 (28.0-62.0) fl RDW Coeff of Mao 14 (11.0-15.0) % Plt Count 291 (150-400) K/uL MPV 8.80 (7.40-12.00) fL Neut % (Auto) 67.3 (48.0-80.0) % Lymph % (Auto) 18.3 (16.0-40.0) % [place] % (Auto) 5.0 (0.0-15.0) % Eos % (Auto) 9.2 H (0.0-7.0) % Baso % (Auto) 0.2 (0.0-1.5) % Neut # (Auto) 8.1 H (1.4-5.7) K/uL Lymph # (Auto) 2.2 (0.6-2.4) K/uL [place] # (Auto) 0.6 (0.0-0.8) K/uL Eos # (Auto) 1.1 H (0.0-0.7) K/uL Baso # (Auto) 0.0 (0.0-0.1) K/uL Nucleated RBC % 0.0 /100WBC Nucleated RBCs # 0 K/uL ESR (0-19) mm/hr Sodium 134 L (136-148) mmol/L Potassium 4.0 (3.5-5.1) mmol/L Chloride 104 (98-107) mmol/L Carbon Dioxide 21.3 (21.0-32.0) mmol/L BUN 19 H (7.0-18.0) mg/dL Creatinine 1.2 (0.8-1.3) mg/dL Est Cr Clr Drug Dosing 52.42 mL/min Estimated GFR (MDRD) > 60.0 ml/min Glucose 75 (74-106) mg/dL Calcium 8.0 L (8.5-10.1) mg/dL Magnesium (1.8-2.4) mg/dL C-Reactive Protein (0.00-0.90) mg/dL MEAGAN Results - Last 24 hrs: Microbiology 02/27/19 18:27 Aerobic Blood Culture - Preliminary Blood - Venous - Lab Draw NO GROWTH AFTER 1 DAY Anaerobic Blood Culture - Preliminary NO GROWTH AFTER 1 DAY 02/27/19 18:17 Aerobic Blood Culture - Preliminary Blood - Venous NO GROWTH AFTER 1 DAY Anaerobic Blood Culture - Preliminary NO GROWTH AFTER 1 DAY Med Orders - Current: Current Medications Acetaminophen (Tylenol) 650 mg PO Q6H PRN PRN Reason: Fever Heparin Sodium (Porcine) (Heparin Sodium) 5,000 units SUBCUT Q8H [facility] Last Admin: 03/01/19 02:54 Dose: 5,000 units Hydromorphone HCl (Dilaudid) 1 mg IVPUSH Q6H PRN PRN Reason: Pain (severe 7-10) Last Admin: 03/01/19 06:05 Dose: 1 mg Sodium Chloride (Normal Saline) 1,000 mls @ 100 mls/hr IV ASDIRECTED [facility] Last Admin: 03/01/19 05:56 Dose: 100 mls/hr Piperacillin Sod/Tazobactam (Sod 3.375 gm/ Sodium Chloride) 50 mls @ 100 mls/ hr IV Q6H [facility] Last Admin: 03/01/19 03:46 Dose: 100 mls/hr Vancomycin HCl 1 gm/ Sodium (Chloride) 250 mls @ 166 mls/hr IV Q12H [facility] Last Admin: 03/01/19 05:56 Dose: 166 mls/hr Lisinopril (Prinivil) 10 mg PO BEDTIME [facility] Last Admin: 02/28/19 20:26 Dose: 10 mg Lorazepam (Ativan) 0.5 mg PO BID PRN PRN Reason: Anxiety Last Admin: 02/28/19 15:29 Dose: 0.5 mg Meloxicam (Mobic) 7.5 mg PO DAILY [facility] Last Admin: 02/28/19 08:26 Dose: 7.5 mg Metoclopramide HCl (Reglan) 5 mg PO Q6H PRN PRN Reason: Nausea Metoprolol Tartrate (Lopressor) 50 mg PO Q24H [facility] Last Admin: 02/28/19 12:20 Dose: Not Given Oxycodone HCl (Oxycodone) 5 mg PO Q4H PRN PRN Reason: Pain (moderate 4-6) Last Admin: 03/01/19 02:55 Dose: 5 mg Pregabalin (Lyrica) 150 mg PO BID [facility] Last Admin: 02/28/19 20:24 Dose: 150 mg Quetiapine Fumarate (Seroquel) 50 mg PO BEDTIME [facility] Last Admin: 02/28/19 20:25 Dose: 50 mg Sertraline HCl (Zoloft) 50 mg PO BEDTIME [facility] Last Admin: 02/28/19 20:25 Dose: 50 mg Tolterodine Tartrate (Detrol La 24 Hr) 4 mg PO DAILY [facility] Last Admin: 02/28/19 08:25 Dose: 4 mg Trazodone HCl (Trazodone) 50 mg PO BEDTIME [facility] Last Admin: 02/28/19 20:25 Dose: 50 mg Vancomycin HCl (Pharmacy To Dose - Vancomycin) 1 dose .XX ASDIRECTED [facility] Discontinued Medications Acetaminophen (Tylenol Extra Strength) 1,000 mg PO ONETIME ONE Stop: 02/27/19 19:40 Last Admin: 02/27/19 19:51 Dose: 1,000 mg Piperacillin Sod/Tazobactam (Sod 3.375 gm/ Sodium Chloride) 50 mls @ 100 mls/ hr IV ONETIME ONE Stop: 02/27/19 18:34 Last Admin: 02/27/19 18:36 Dose: 100 mls/hr Sodium Chloride (Normal Saline) 1,000 mls @ 999 mls/hr IV STAT ONE Stop: 02/27/19 19:05 Last Admin: 02/27/19 18:20 Dose: 999 mls/hr Vancomycin HCl 1 gm/ Sodium (Chloride) 250 mls @ 166 mls/hr IV ONETIME ONE Stop: 02/27/19 19:36 Last Admin: 02/27/19 19:07 Dose: 166 mls/hr Sodium Chloride (Normal Saline) 1,000 mls @ 999 mls/hr IV STAT ONE Stop: 02/27/19 19:47 Last Admin: 02/27/19 19:17 Dose: 999 mls/hr Vancomycin HCl 1 gm/ Sodium (Chloride) 250 mls @ 166 mls/hr IV Q12H [facility] Last Admin: 02/28/19 05:23 Dose: 166 mls/hr Sodium Chloride (Normal Saline (Advbag)) Confirm Administered Dose 250 mls @ as directed .ROUTE .STK-MED ONE Stop: 02/28/19 05:14 Last Admin: 02/28/19 06:52 Dose: Not Given Lisinopril (Prinivil) 10 mg PO DAILY [facility] Vancomycin HCl (Vancomycin) Confirm Administered Dose 1 gm .ROUTE .STK-MED ONE Stop: 02/28/19 05:10 Last Admin: 02/28/19 06:52 Dose: Not Given - Exam Quality Assessment: Denies: Supplemental Oxygen General: Reports: Alert, Oriented, Cooperative, No Acute Distress HEENT: Reports: Pupils Equal, Pupils Reactive, EOMI, Mucous Membr. Moist/[place] Neck: Reports: Supple, Trachea Midline Lungs: Reports: Clear to Auscultation, Normal Respiratory Effort Cardiovascular: Reports: Regular Rate, Regular Rhythm GI/Abdominal Exam: Normal Bowel Sounds, Soft, Non-Tender, No Distention Back Exam: Reports: Normal Inspection, Full Range of Motion Extremities: Normal Range of Motion, No Pedal Edema. No: Normal Inspection ( Bilateral MTA) Skin: Reports: Warm, Dry, Intact Neurological: Reports: No New Focal Deficit Psy/Mental Status: Reports: Alert, Normal Affect, Normal Mood
[2019-03-01 08:10] VITALS: BP 111/53
[2019-03-01] MEDS: Pregabalin 75 MG Cap PO SCH (08:18)
[2019-03-01] MEDS: Tolterodine 2 MG Cap.ER PO SCH (08:18)
[2019-03-01] MEDS: Metoprolol Tartrate 50 MG Tab PO SCH (08:21)
[2019-03-01] MEDS: Meloxicam 7.5 MG Tab PO SCH (08:21)
--- NOTE | 2019-03-03 10:13 | ECHO ---
The echocardiogram report can be seen in this patient's EMR (Electronic Medical Record) in the Reports section. The echocardiogram report has also been scanned into PACS and can be seen there as well. HARDEEP
== END 2019-03-01 11:30 | disposition home or self-care (01) | DRG 872 ==
LOC: MW.ED 17:54 → MW.ICU 19:37 → MW.MS 02-28 14:45
PROVIDERS: ADMIT Internal Medicine; ATTEND Internal Medicine
DX: A41.01 Sepsis due to Methicillin susceptible Staphylococcus aureus (principal); A41.9 Sepsis, unspecified organism; M86.9 Osteomyelitis, unspecified; M86.3 Chronic multifocal osteomyelitis; E86.0 Dehydration; L08.9 Local infection of the skin and subcutaneous tissue, unspecified; H54.7 Unspecified visual loss; I10 Essential (primary) hypertension; J44.9 Chronic obstructive pulmonary disease, unspecified; Z88.5 Allergy status to narcotic agent; M19.90 Unspecified osteoarthritis, unspecified site; G89.29 Other chronic pain; M54.9 Dorsalgia, unspecified; G62.9 Polyneuropathy, unspecified; F32.9 Major depressive disorder, single episode, unspecified; F41.9 Anxiety disorder, unspecified; D64.9 Anemia, unspecified; F17.210 Nicotine dependence, cigarettes, uncomplicated; F43.10 Post-traumatic stress disorder, unspecified; Z79.899 Other long term (current) drug therapy; Z79.1 Long term (current) use of non-steroidal anti-inflammatories (NSAID); Z98.890 Other specified postprocedural states; Z89.432 Acquired absence of left foot; Z89.431 Acquired absence of right foot
CPT/HCPCS: 36415; 71045; 73620; 80053; 83605; 85025; 85610; 87040 ×2; 93005; 96365; 96367; 99284; J2543; J3370; J7040 ×2; J7050 ×2; 80048; 81001; 83735; 85652; 86140; 87070; 87077; 87186; 93306; A9270-GY; J1170; J1644

== ENCOUNTER 2019-03-03 14:15 | Emergency (ER) | payer MEDICARE, OTHER ==
--- NOTE | 2019-03-03 15:14 | EDM.PDOC ---
ED HPI GENERAL MEDICAL PROBLEM - General Chief Complaint: General Stated Complaint: Unwell Time Seen by Provider: 03/03/19 15:14 Source of Information: Reports: Patient History Limitations: Reports: No Limitations - History of Present Illness INITIAL COMMENTS - FREE TEXT/NARRATIVE: HISTORY AND PHYSICAL: History of present illness: Patient is a 68-year-old male presents to the ED with complaint of abdominal and back pain. Patient has a history of osteomyelitis of the right foot and had been receiving parenteral antibiotics through a PICC line. Patient was recently admitted to the hospital for chills rule out bacteremia. Patient had elevated white count and PICC line was removed as possible source of infection. X-ray of the right foot showed no signs of osteomyelitis. Doctors with Dr. Pastor and certified prosthetist/orthotist in [place]. He returns to the ED today with complaint of low back and stomach pain. He states he's been having the back pain for about a month and abdominal pain for a few days. Patient denies any injury to the back. believes that he is having abdominal pain because he has been having to take oral antibiotics due to having his PICC line removed. He states that he can hardly eat and he gets nauseated due to the antibiotics. He was taking Augmentin but was not tolerating this and switched to clindamycin. He denies any fevers, chills, chest pain, shortness of breath, saddle anesthesia, lower extremity weakness, loss of bowel or bladder control, diarrhea. Review of systems: As per history of present illness and below otherwise all systems reviewed and negative. Past medical history: As per history of present illness and as reviewed below otherwise noncontributory. Surgical history: As per history of present illness and as reviewed below otherwise noncontributory. Social history: No reported history of drug or alcohol abuse. Family history: As per history of present illness and as reviewed below otherwise noncontributory. Physical exam: General: Patient sitting comfortably in no acute distress and nontoxic appearing HEENT: Atraumatic, normocephalic, pupils reactive, negative for conjunctival pallor or scleral icterus, mucous membranes moist, throat clear, neck supple, nontender, trachea midline. No meningeal signs. Lungs: Clear to auscultation, breath sounds equal bilaterally, chest nontender. Heart: S1S2, regular, negative for clicks, rubs, or overt murmur. Abdomen: LLQ diverticulitis. Soft, nondistended,. Negative for masses or hepatosplenomegaly. Negative for costovertebral tenderness. No rigidity, rebound , guarding. Pelvis: Stable nontender. Genitourinary: Deferred. Rectal: Deferred. Extremities: Atraumatic, negative for cords or calf pain. Neurovascular unremarkable. Amputation of the toes bilaterally. There is no significant erythema or warmth noted. Small healing lesion to the right distal foot without purulence or drainage. Neuro: Awake, alert, oriented. Cranial nerves II through XII unremarkable. Cerebellum unremarkable. Motor and sensory unremarkable throughout. Exam nonfocal. Notes: Patient was discussed with Dr. Jules who thinks he needs to transfer to [facility] not to have a PICC line to receive parenteral antibiotics and evaluation of his osteomyelitis. Diagnostics: CBC, CMP, lactate, blood culture 2, UA, lipase CT abdomen pelvis with contrast Therapeutics: 1L normal saline IV 30 mg Toradol IV 1g Dilaudid IV Prescriptions: Impression: History of osteomyelitis, diverticulitis Plan: Discussed with Dr. Juarez, hospitalist [facility], as well as Dr. Kirkland, ER [facility], patient will be transferred to [facility] for PICC line. Definitive disposition and diagnosis as appropriate pending reevaluation and review of above. Back Pain Score (Numeric/FACES): 10 - Related Data Allergies Allergy/AdvReac Type Severity Reaction Status Date / Time morphine Allergy Other Verified 03/03/19 14:36 Home Meds: Home Meds Lisinopril 10 mg PO BEDTIME 05/02/16 [History] Pregabalin [Lyrica] 150 mg PO ASDIRECTED PRN 05/02/16 [History] Tolterodine Tartrate [Detrol LA] 4 mg PO DAILY 05/02/16 [History] Hydrocodone/Acetaminophen [[place] 5-325 Tablet] 5 - 325 mg PO Q6HR PRN 02/08/19 [ History] Meloxicam 7.5 mg PO DAILY 02/08/19 [History] Metoprolol Tartrate 50 mg PO DAILY 02/08/19 [History] QUEtiapine [SEROquel] 50 mg PO BEDTIME 02/08/19 [History] Sertraline [Zoloft] 50 mg PO BEDTIME 02/08/19 [History] traZODone HCl [Trazodone HCl] 50 mg PO BEDTIME 02/08/19 [History] Metoclopramide [Reglan] 5 mg PO Q6H PRN #15 tab 02/11/19 [Rx] LORazepam 0.5 mg PO BID 02/27/19 [History] Clindamycin HCl [Cleocin HCl] 600 mg PO TID 03/03/19 [History] Past Medical History HEENT History: Reports: Impaired Vision Other HEENT History: wears glasses, has upper denture and lower removable partial Cardiovascular History: Reports: Hypertension Other Cardiovascular History: pericarditis Respiratory History: Reports: COPD, Intubation, Previous Gastrointestinal History: Reports: None Genitourinary History: Reports: Retention, Urinary Musculoskeletal History: Reports: Arthritis, Back Pain, Chronic, Osteoarthritis , Other (See Below) Other Musculoskeletal History: shoulder injections Neurological History: Reports: Neuropathy, Peripheral Other Neuro History: bacterial meningitis '01 with multiple organ failure ( sepsis) Psychiatric History: Reports: Anxiety, Depression, PTSD Endocrine/Metabolic History: Reports: None Hematologic History: Reports: Anemia, Blood Transfusion(s) Immunologic History: Reports: None Oncologic (Cancer) History: Reports: None Dermatologic History: Reports: None - Infectious Disease History Infectious Disease History: Reports: Chicken Pox, Measles, Mumps Other Infectious Disease History: meningococal septicemia - Past Surgical History Head Surgeries/Procedures: Reports: None HEENT Surgical History: Reports: None Other Respiratory Surgeries/Procedures: previous chest tube Male Surgical History: Reports: None Musculoskeletal Surgical History: Reports: Amputation Other Musculoskeletal Surgeries/Procedures:: 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 ED EXAM, GENERAL - Physical Exam Exam: See Below (see dictation) Course - Vital Signs Last Recorded V/S: Last Vital Signs Temp 97.3 F 03/03/19 15:21 Pulse 58 L 03/03/19 15:21 Resp 16 03/03/19 15:21 BP 154/84 H 03/03/19 15:21 Pulse Ox 95 03/03/19 15:21 - Orders/Labs/Meds Orders: Active Orders 24 hr Category Date Time Status CULTURE BLOOD [BC] Stat Lab 03/03/19 15:06 Results CULTURE BLOOD [BC] Stat Lab 03/03/19 15:19 Results Blood Culture x2 Reflex Set [OM.PC] Stat Oth 03/03/19 14:44 Ordered Labs: Laboratory Tests 03/03/19 03/03/19 03/03/19 Range/Units 15:06 15:06 15:06 WBC 8.86 (4.0-11.0) K/uL RBC 3.71 L (4.50-5.90) M/uL Hgb 11.3 L (13.0-17.0) g/dL Hct 32.6 L (38.0-50.0) % MCV 87.9 (80.0-98.0) fL MCH 30.5 (27.0-32.0) pg MCHC 34.7 (31.0-37.0) g/dL RDW Std Deviation 43.7 (28.0-62.0) fl RDW Coeff of Mao 14 (11.0-15.0) % Plt Count 394 (150-400) K/uL MPV 9.20 (7.40-12.00) fL Add Manual Diff YES Neutrophils % (Manual) 67 (48.0-80.0) % Lymphocytes % (Manual) 23 (16.0-40.0) % Monocytes % (Manual) 10 (0.0-15.0) % Nucleated RBC % 0.0 /100WBC Absolute Seg Neuts 5.9 H (1.4-5.7) Lymphocytes # (Manual) 2.0 (0.6-2.4) Monocytes # (Manual) 0.9 H (0.0-0.8) Nucleated RBCs # 0 K/uL Giant Platelets RARE Poikilocytosis 1+ SLIGHT Acanthocytes (Spur) 1+ SLIGHT Lactate 1.3 (0.20-2.00) mmol/L Sodium 138 (136-148) mmol/L Potassium 3.7 (3.5-5.1) mmol/L Chloride 103 (98-107) mmol/L Carbon Dioxide 25.3 (21.0-32.0) mmol/L BUN 16 (7.0-18.0) mg/dL Creatinine 0.9 (0.8-1.3) mg/dL Est Cr Clr Drug Dosing 72.52 mL/min Estimated GFR (MDRD) > 60.0 ml/min Glucose 129 H (74-106) mg/dL Calcium 8.9 (8.5-10.1) mg/dL Total Bilirubin 0.7 (0.2-1.0) mg/dL AST 35 (15-37) IU/L ALT 59 (14-63) IU/L Alkaline Phosphatase 220 H (46-116) U/L Total Protein 6.6 (6.4-8.2) g/dL Albumin 2.6 L (3.4-5.0) g/dL Globulin 4.0 (2.6-4.0) g/dL Albumin/Globulin Ratio 0.7 L (0.9-1.6) Lipase (73-393) U/L Urine Color Urine Appearance Urine pH (5.0-8.0) Ur Specific [place] (1.001-1.035) Urine Protein (NEGATIVE) mg/dL Urine Glucose (UA) (NEGATIVE) mg/dL Urine Ketones (NEGATIVE) mg/dL Urine Occult Blood (NEGATIVE) Urine Nitrite (NEGATIVE) Urine Bilirubin (NEGATIVE) Urine Urobilinogen (<2.0) EU/dL Ur Leukocyte Esterase (NEGATIVE) 03/03/19 03/03/19 Range/Units 15:06 16:29 WBC (4.0-11.0) K/uL RBC (4.50-5.90) M/uL Hgb (13.0-17.0) g/dL Hct (38.0-50.0) % MCV (80.0-98.0) fL MCH (27.0-32.0) pg MCHC (31.0-37.0) g/dL RDW Std Deviation (28.0-62.0) fl RDW Coeff of Mao (11.0-15.0) % Plt Count (150-400) K/uL MPV (7.40-12.00) fL Add Manual Diff Neutrophils % (Manual) (48.0-80.0) % Lymphocytes % (Manual) (16.0-40.0) % Monocytes % (Manual) (0.0-15.0) % Nucleated RBC % /100WBC Absolute Seg Neuts (1.4-5.7) Lymphocytes # (Manual) (0.6-2.4) Monocytes # (Manual) (0.0-0.8) Nucleated RBCs # K/uL Giant Platelets Poikilocytosis Acanthocytes (Spur) Lactate (0.20-2.00) mmol/L Sodium (136-148) mmol/L Potassium (3.5-5.1) mmol/L Chloride (98-107) mmol/L Carbon Dioxide (21.0-32.0) mmol/L BUN (7.0-18.0) mg/dL Creatinine (0.8-1.3) mg/dL Est Cr Clr Drug Dosing mL/min Estimated GFR (MDRD) ml/min Glucose (74-106) mg/dL Calcium (8.5-10.1) mg/dL Total Bilirubin (0.2-1.0) mg/dL AST (15-37) IU/L ALT (14-63) IU/L Alkaline Phosphatase (46-116) U/L Total Protein (6.4-8.2) g/dL Albumin (3.4-5.0) g/dL Globulin (2.6-4.0) g/dL Albumin/Globulin Ratio (0.9-1.6) Lipase 202 (73-393) U/L Urine Color YELLOW Urine Appearance CLEAR Urine pH 7.0 (5.0-8.0) Ur Specific [place] 1.010 (1.001-1.035) Urine Protein NEGATIVE (NEGATIVE) mg/dL Urine Glucose (UA) NEGATIVE (NEGATIVE) mg/dL Urine Ketones NEGATIVE (NEGATIVE) mg/dL Urine Occult Blood NEGATIVE (NEGATIVE) Urine Nitrite NEGATIVE (NEGATIVE) Urine Bilirubin NEGATIVE (NEGATIVE) Urine Urobilinogen 0.2 (<2.0) EU/dL Ur Leukocyte Esterase NEGATIVE (NEGATIVE) Meds: Medications Discontinued Medications Generic Name Dose Route Start Last Admin Trade Name Freq PRN Reason Stop Dose Admin Hydromorphone HCl 1 mg 03/03/19 16:42 03/03/19 16:57 Dilaudid IVPUSH 03/03/19 16:43 1 mg ONETIME ONE Administration Sodium Chloride 1,000 mls @ 999 mls/hr 03/03/19 15:19 03/03/19 15:42 Normal Saline IV 03/03/19 16:19 999 mls/hr STAT ONE Administration Iopamidol 75 ml 03/03/19 16:19 03/03/19 16:20 Isovue Multipack-370 (76%) IVPUSH 03/03/19 16:20 75 ml ONETIME STA Administration Ketorolac Tromethamine 30 mg 03/03/19 15:19 03/03/19 15:42 Toradol IVPUSH 03/03/19 15:20 30 mg ONETIME ONE Administration Departure - Departure Time of Disposition: 17:27 Disposition: DC/Tfer to Acute Hospital 02 Condition: Good Clinical Impression: History of osteomyelitis, Diverticulitis - Discharge Information Referrals: PCP,None [Primary Care Provider] - Forms: ED Department Discharge
[2019-03-03] MEDS ORDERED: Sodium Chloride 0.9% 1,000 ML IV ONE (15:19)
[2019-03-03] MEDS ORDERED: Ketorolac 30 MG/ML SDV IVPUSH ONE (15:19)
[2019-03-03 15:54] LABS: CHLORIDE,CL 103 mmol/L (98-107); SODIUM,NA 138 mmol/L (136-148)
[2019-03-03] MEDS ORDERED: Iopamidol 755 MG/ML 500 ML Multipack Bottle IVPUSH STA (16:19)
[2019-03-03] MEDS ORDERED: HYDROmorphone 1 MG/ML Syringe IVPUSH ONE ×2 (16:42→20:03)
--- NOTE | 2019-03-03 17:04 | CT ---
INDICATION: Abdominal pain, decreased appetite, nausea, night sweats TECHNIQUE: CT Abdomen and pelvis with i.v. contrast. Coronal and sagittal reformats were obtained. CONTRAST: 75 mL Isovue 370 COMPARISON: 05/23/2013 FINDINGS: Lower chest: Mild pleural parenchymal scarring is seen in the left lung base. Moderate elevation of left hemidiaphragm is noted without change. Liver: Unremarkable. Spleen: Previous splenectomy noted with no significant intraabdominal splenosis seen. Pancreas: Unremarkable. Gallbladder: Unremarkable. Kidney: Tiny renal cortical cysts are present measuring up to 7 mm. Adrenal: Unremarkable. Bowel: Severe diverticulosis of the sigmoid colon is present with suspected mild wall thickening in the distal sigmoid. The appendix is not identified. Vascular: Unremarkable. Lymph: Unremarkable. Peritoneum: Unremarkable. No pneumoperitoneum is seen. No significant ascites is noted. Pelvis: Mild bladder distention is seen. Soft tissue: Unremarkable. Bone: Moderate dextroscoliosis is noted with associated facet arthritis and degenerative disc disease. IMPRESSION: 1. Severe diverticulosis of the sigmoid colon is present with suspected mild wall thickening in the distal sigmoid. Clinical correlation is recommended to exclude diverticulitis. Dictated by Randy Dodge MD @ 03/03/2019 5:02:31 PM Please note that all CT scans at this facility use dose modulation, iterative reconstruction, and/or weight-based dosing when appropriate to reduce radiation dose to as low as reasonably achievable. Dictated by: Randy Dodge MD @ 03/03/2019 17:02:33 (Electronically Signed)
[2019-03-03] MEDS ORDERED: metroNIDAZOLE/Normal Saline 500 MG in Premix Bag 1 BAG IV ONE (17:28)
[2019-03-03] MEDS ORDERED: Ciprofloxacin in D5W 400 MG in Premix Bag 1 BAG IV STA ×2 (17:28)
[2019-03-03 19:53] VITALS: BP 112/58
== END 2019-03-03 20:15 ==
LOC: EDSTATUS 14:15 → MW.ED 14:18
DX: K57.32 Diverticulitis of large intestine without perforation or abscess without bleeding (principal); I10 Essential (primary) hypertension; F41.9 Anxiety disorder, unspecified; F32.9 Major depressive disorder, single episode, unspecified; M19.90 Unspecified osteoarthritis, unspecified site; F43.10 Post-traumatic stress disorder, unspecified; F17.210 Nicotine dependence, cigarettes, uncomplicated; Z88.5 Allergy status to narcotic agent; Z79.899 Other long term (current) drug therapy; Z86.2 Personal history of diseases of the blood and blood-forming organs and certain disorders involving the immune mechanism
CPT/HCPCS: 36415; 74177; 80053; 81003; 83605; 83690; 85025; 87040; 96361; 96365; 96367; 96375; 96376; 99285; J0744; J1170; J1885; J3490; J7040; Q9967; 99284

== ENCOUNTER 2020-10-09 12:19 | Emergency (ER) | payer MEDICARE, OTHER ==
[2020-10-09] MEDS ORDERED: Lactated Ringers 1,000 ML IV SCH (13:30)
[2020-10-09] MEDS ORDERED: diphenhydrAMINE 50 MG/ML SDV IVPUSH ONE (13:33)
[2020-10-09 13:57] LABS: BLOOD UREA NITROGEN,BUN 28 mg/dL (7.0-18.0); CARBON DIOXIDE,CO2 22.2 mmol/L (21.0-32.0); CHLORIDE,CL 98 mmol/L (98-107); GLUCOSE RANDOM 137 mg/dL (74-106); POTASSIUM,K 4.6 mmol/L (3.5-5.1); SODIUM,NA 133 mmol/L (136-148)
[2020-10-09] MEDS ORDERED: LORazepam 2 MG/ML SDV IVPUSH ONE (15:17)
[2020-10-09 17:58] VITALS: BP 147/84
--- NOTE | 2020-10-09 18:05 | EDM.PDOC ---
ED HPI GENERAL MEDICAL PROBLEM - General Chief Complaint: General Stated Complaint: CHILLS NAUSEA Time Seen by Provider: 10/09/20 12:40 - History of Present Illness INITIAL COMMENTS - FREE TEXT/NARRATIVE: CHIEF COMPLAINT(S): Twitching HISTORY OF PRESENT ILLNESS: This is a 69-year-old man with past medical history of osteomyelitis in the right second metatarsal, COPD, bacterial meningitis in 2000 with multiorgan failure, anxiety, depression, and PTSD who comes to the emergency department with a chief complaint of twitching. The patient states that approximately 20 years ago he had bacterial meningitis and had a prolonged hospital stay. He states that since that time he has been experiencing what he describes as twitching of his lower extremities where he feels restless and chills. He states that this happens every 2 months however this time it has been going constant for approximately 1 week. He states that he feels mildly dehydrated but has been tolerating Pedialyte and water. He states that this has been an issue for quite some time and that when he comes in Ativan always works. He denies any chest pain, shortness of breath, fever, chills, abdominal pain but states that he does have some mild nausea. He denies any vomiting. He states that he takes metoclopramide for nausea at home. He denies any headache, blurry vision, numbness, tingling, or weakness. REVIEW OF SYSTEMS: Constitutional: Denies fever, chills. Eyes: Denies eye pain Ears, Nose, Mouth, & Throat: Denies earache Cardiovascular: Denies chest pain Respiratory: Denies shortness of breath Gastrointestinal: Positive for nausea. Denies vomiting, diarrhea, hematochezia, melena, hematemesis, bilious emesis Genitourinary: Denies hematuria, dysuria Skin:Denies a rash MSK: Positive for twitching of his bilateral lower extremities Neurological: Positive for restlessness. Denies blurred vision, headache, numbness, tingling, weakness Psychiatric: Positive for depression, anxiety, PTSD PAST MEDICAL HISTORY: As per history of present illness and as reviewed below otherwise noncontributory. SURGICAL HISTORY: As per history of present illness and as reviewed below otherwise noncontributory. SOCIAL HISTORY: As per history of present illness and as reviewed below otherwise noncontributory. FAMILY HISTORY: As per history of present illness and as reviewed below otherwise noncontributory. EXAMINATION OF ORGAN SYSTEMS/BODY AREAS: Constitutional: Blood pressure was 190/95, heart rate 59, respiratory rate 24 with an oxygen saturation 10 percent on room air. Temperature 36.1 General: Middle-aged gentleman who appears restless Psychiatric: Appears mildly anxious. Otherwise appropriate mood and is cooperative Eyes: No scleral icterus or conjunctival erythema pupils are equal round reactive to light. Extraocular movements intact. No vertical horizontal nystagmus. ENMT: Moist mucous membranes. No pharyngeal erythema Cardiovascular: Regular, rate, and rhythm. No gallops, murmurs, or rubs. Bilateral upper extremity pulses symmetric and intact. No peripheral edema. No JVD. Lip smacking and rhythmic movements of his lips. Respiratory: Lungs clear to auscultation bilaterally. No wheezes, rales, or rhonchi. Gastrointestinal: Soft, non-tender, non-distended. Normoactive bowel sounds Genitourinary: No suprapubic tenderness Musculoskeletal: Patient has involuntary rhythmic movements of his bilateral lower extremities Skin: No lesions or abrasions. Neurological: AOx4. CN grossly intact. Strength 5/5 in bilateral upper and lower extremity. Sensation is intact bilaterally in upper and lower extremity. Gait appears normal. Finger to nose, heel to monroy, rapid alternating movements intact. MEDICAL DECISION MAKING AND COURSE IN THE ED WITH INTERPRETATION/REVIEW OF DIAGNOSTIC STUDIES: This is a 69-year-old man with a complex past medical history including bacterial meningitis in 2000 who comes to the emergency department with restlessness who appears to have involuntary rhythmic movements of his bilateral lower extremities and lipsmacking. The patient was mildly hypertensive but has no other complaints such as headache and has a nonfocal neurological examination. At this time we did obtain an EKG which did not reveal any acute signs of ischemia. Will obtain labs including CBC, CMP, TSH and free T4. We did obtain a [id number] glucose which was 113. At this time given the patient's history that this has been going on for approximately 20 years and its intermittent activity I do believe this is consistent with tardive dyskinesia. He is taking metoclopramide at home and it is uncertain as to what medications he was given approximately 20 years ago during his admission. Patient stated that after having some nausea this week is when his symptoms did worsen after taking metoclopramide. I do believe this is the source. We will obtain the labs for screening and reevaluate. We will provide the patient with Benadryl for reevaluation of this could be a dystonic reaction or akathisia. If this does not work we will attempt Ativan. Laboratory: CBC is unremarkable. CMP reveals hyponatremia at 133, mild elevation in BUN at 28, hyperglycemia at 137 otherwise unremarkable. TSH is mildly decreased at 0.3 with normal T4 at 1.34. Time: 1433 Twelve-lead EKG interpreted by myself. Normal sinus rhythm at a rate of 59 beats per minute. Normal axis. TX interval is 161 ms. QRS duration is [address] segments are normal without elevations or depressions. There are prominent T waves throughout the EKG no Q waves present. Hypertrophy not noted. No changes demonstrated from prior EKG dated February 10, 2019. Interpretation: Normal sinus rhythm After Benadryl the patient did appear more calm however his rhythmic movements had not stopped. Therefore I provided the patient with 2 mg of I the Ativan we will reevaluate. Patient's blood pressure had improved at this time therefore no changes will be made or medications administered. After period of observation the patient was able to tolerate p.o. and his rhythmic movements had stopped and appeared Colmer. I did discuss with the patient that I do believe that given its chronic nature I do believe this is tardive dyskinesia. I discussed with him that he should follow-up with his primary care physician for continued management and treatment. I did discuss that this is difficult to treat and may be permanent. I discussed that if he had any worsening symptoms or any new symptoms such as weakness, headache or any symptoms of stroke he should return to the emergency department. I encouraged him to stop taking metoclopramide. He was amenable discharge at this time and had no further questions. DISPOSITION: The patient was discharged home in stable condition. The patient will follow up with primary care physician within 1 week CONDITION: Fair PROCEDURES: None FINAL IMPRESSION(S)/DIAGNOSES: 1. Acute rhythmic movement of bilateral lower extremities, suspect tardive dyskinesia 2. Acute lip smacking likely secondary to tardive dyskinesia Marshall Salazar M.D. right foot Pain Score (Numeric/FACES): 3 - Related Data Allergies Allergy/AdvReac Type Severity Reaction Status Date / Time morphine Allergy Other Verified 03/29/21 12:43 Home Meds: Home Meds Lisinopril 20 mg PO BEDTIME 05/02/16 [History] Tolterodine Tartrate [Detrol LA] 4 mg PO DAILY 05/02/16 [History] Hydrocodone/Acetaminophen [Fluker 5-325 Tablet] 5 - 325 mg PO Q6HR PRN 02/08/19 [History] Metoprolol Tartrate 25 mg PO DAILY 02/08/19 [History] Sertraline [Zoloft] 100 mg PO BEDTIME 02/08/19 [History] traZODone HCl [Trazodone HCl] 50 mg PO BEDTIME 02/08/19 [History] Metoclopramide [Reglan] 10 mg PO Q6H PRN 10/09/20 [History] Past Medical History HEENT History: Reports: Impaired Vision Other HEENT History: wears glasses, has upper denture and lower removable partial Cardiovascular History: Reports: Hypertension Other Cardiovascular History: pericarditis Respiratory History: Reports: COPD, Intubation, Previous Gastrointestinal History: Reports: None Genitourinary History: Reports: Retention, Urinary Musculoskeletal History: Reports: Arthritis, Back Pain, Chronic, Osteoarthritis, Other (See Below) Other Musculoskeletal History: shoulder injections Neurological History: Reports: Neuropathy, Peripheral Other Neuro History: bacterial meningitis '01 with multiple organ failure (sepsis) Psychiatric History: Reports: Anxiety, Depression, PTSD Endocrine/Metabolic History: Reports: None Hematologic History: Reports: Anemia, Blood Transfusion(s) Immunologic History: Reports: None Oncologic (Cancer) History: Reports: None Dermatologic History: Reports: None - Infectious Disease History Infectious Disease History: Reports: Chicken Pox, Measles, Mumps, Shingles Other Infectious Disease History: meningococal septicemia - Past Surgical History Head Surgeries/Procedures: Reports: None HEENT Surgical History: Reports: None Other Cardiovascular Surgeries/Procedures: 2000, Pericardial Window Respiratory Surgical History: Reports: Other (See Below) Other Respiratory Surgeries/Procedures: previous chest tube Male Surgical History: Reports: None Musculoskeletal Surgical History: Reports: Amputation Other Musculoskeletal Surgeries/Procedures:: 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 Social & Family History - Family History Family Medical History: No Pertinent Family History Cardiac: Reports: Hypertension - Tobacco Use Tobacco Use Status *Q: Current Every Day Tobacco User Years of Tobacco use: 50 Packs/Tins Daily: 1 - Caffeine Use Caffeine Use: Reports: Coffee Other Caffeine Use: 2-3 cups Caffeine Use Comment: 6 cups of coffee a day - Recreational Drug Use Recreational Drug Use: Yes Recreational Drug Type: Reports: Marijuana/Hashish ED ROS GENERAL - Review of Systems Review Of Systems: See Below ED EXAM, GENERAL - Physical Exam Exam: See Below Course - Vital Signs Last Recorded V/S: Last Vital Signs Temp 36.1 C 10/09/20 12:46 Pulse 66 10/09/20 18:09 Resp 18 10/09/20 18:09 BP 147/84 H 10/09/20 17:46 Pulse Ox 96 10/09/20 18:09 - Orders/Labs/Meds Labs: Laboratory Tests 10/09/20 10/09/20 10/09/20 Range/Units 12:56 12:56 16:10 WBC 9.99 (4.0-11.0) K/uL RBC 4.56 (4.50-5.90) M/uL Hgb 14.7 (13.0-17.0) g/dL Hct 42.2 (38.0-50.0) % MCV 92.5 (80.0-98.0) fL MCH 32.2 H (27.0-32.0) pg MCHC 34.8 (31.0-37.0) g/dL RDW Std Deviation 45.9 (28.0-62.0) fl RDW Coeff of Mao 14 (11.0-15.0) % Plt Count 348 (150-400) K/uL MPV 10.50 (7.40-12.00) fL Neut % (Auto) 64.9 (48.0-80.0) % Lymph % (Auto) 23.0 (16.0-40.0) % [place] % (Auto) 11.4 (0.0-15.0) % Eos % (Auto) 0.4 (0.0-7.0) % Baso % (Auto) 0.3 (0.0-1.5) % Neut # (Auto) 6.5 H (1.4-5.7) K/uL Lymph # (Auto) 2.3 (0.6-2.4) K/uL [place] # (Auto) 1.1 H (0.0-0.8) K/uL Eos # (Auto) 0.0 (0.0-0.7) K/uL Baso # (Auto) 0.0 (0.0-0.1) K/uL Nucleated RBC % 0.0 /100WBC Nucleated RBCs # 0 K/uL Sodium 133 L (136-148) mmol/L Potassium 4.6 (3.5-5.1) mmol/L Chloride 98 (98-107) mmol/L Carbon Dioxide 22.2 (21.0-32.0) mmol/L BUN 28 H (7.0-18.0) mg/dL Creatinine 1.1 (0.8-1.3) mg/dL Est Cr Clr Drug Dosing 53.51 mL/min Estimated GFR (MDRD) > 60.0 ml/min Glucose 137 H (74-106) mg/dL POC Glucose 113 H (60-110) mg/dL Calcium 9.4 (8.5-10.1) mg/dL Total Bilirubin 0.5 (0.2-1.0) mg/dL AST 25 (15-37) IU/L ALT 29 (14-63) IU/L Alkaline Phosphatase 100 (46-116) U/L Total Protein 7.3 (6.4-8.2) g/dL Albumin 3.8 (3.4-5.0) g/dL Globulin 3.5 (2.6-4.0) g/dL Albumin/Globulin Ratio 1.1 (0.9-1.6) Free T4 1.34 (0.76-1.46) ng/dL TSH 3rd Generation 0.30 L (0.36-3.74) uIU/mL Meds: Medications Discontinued Medications Generic Name Dose Route Start Last Admin Trade Name Freq PRN Reason Stop Dose Admin Diphenhydramine HCl 50 mg 10/09/20 13:33 10/09/20 14:05 Diphenhydramine 50 Mg/Ml Sdv IVPUSH 10/09/20 13:34 50 mg ONETIME ONE Administration Lactated Ringer's 1,000 mls @ 999 mls/hr 10/09/20 13:30 10/09/20 13:32 Ringers, Lactated IV 999 mls/hr ASDIRECTED SEAN Administration Lorazepam 2 mg 10/09/20 15:17 10/09/20 15:22 Lorazepam 2 Mg/Ml Sdv IVPUSH 10/09/20 15:18 2 mg ONETIME ONE Administration Departure - Departure Time of Disposition: 18:04 Disposition: Home, Self-Care 01 Condition: Fair Clinical Impression: Tardive dyskinesia - Discharge Information *PRESCRIPTION DRUG MONITORING PROGRAM REVIEWED*: No *COPY OF PRESCRIPTION DRUG MONITORING REPORT IN PATIENT MICHEAL: No Instructions: Tardive Dyskinesia Referrals: Star Jacob MD [Primary Care Provider] - Forms: ED Department Discharge Additional Instructions: You were evaluated today on an emergent basis. At this time given the duration of your symptoms and the movement you had on exam I do believe this is consistent with tardive dyskinesia. I am uncertain as to what medication you received in the past that is because this for the last 20 years however metoclopramide could be one of the causes. I recommend that you do not use this medication again and follow-up with your primary care physician for further management. As discussed there are not many options for tardive dyskinesia however one of them is benzodiazepines like Ativan. This will need to be managed by primary care physician. If you have any new or worsening symptoms you are welcome to return to the emergency department. [facility] - [facility] [address] [place] [address] [place] [address] The patient is informed of any results of their evaluation and diagnostic workup and all questions are answered. They are given discharge instructions and return precautions. The patient is stable for discharge. The patient states they understand and agree with the plan and that they will return if their symptoms get worse or if they have any new concerns. The following information is given to patients seen in the emergency department who are being discharged to home. This information is to outline your options for follow-up care. We provide all patients seen in our emergency department with a follow-up referral. The need for follow-up, as well as the timing and circumstances, are variable depending upon the specifics of your emergency department visit. If you don't have a primary care physician on staff, we will provide you with a referral. We always advise you to contact your personal physician following an emergency department visit to inform them of the circumstance of the visit and for follow-up with them and/or the need for any referrals to a consulting specialist. The emergency department will also refer you to a specialist when appropriate. This referral assures that you have the opportunity for follow-up care with a specialist. All of these measure are taken in an effort to provide you with optimal care, which includes your follow-up. Under all circumstances we always encourage you to contact your private physician who remains a resource for coordinating your care. When calling for follow-up care, please make the office aware that this follow-up is from your recent emergency room visit. If for any reason you are refused follow-up, please contact the [facility] Emergency Department at and asked to speak to the emergency department charge nurse. Sepsis Event Note (ED) - Evaluation Sepsis Screening Result: No Definite Risk
[2020-10-09 18:11] VITALS: PULSE 66
== END 2020-10-09 18:11 | disposition home or self-care (01) ==
LOC: MW.ED 12:19
DX: G24.01 Drug induced subacute dyskinesia (principal); T45.0X5A Adverse effect of antiallergic and antiemetic drugs, initial encounter; K13.0 Diseases of lips; I10 Essential (primary) hypertension; J44.9 Chronic obstructive pulmonary disease, unspecified; Z72.0 Tobacco use; Z88.5 Allergy status to narcotic agent; Z79.899 Other long term (current) drug therapy
CPT/HCPCS: 36415; 80053; 82962; 84439; 84443; 85025; 93005; 96374; 96375; 99283; J1200; J2060; J7120; 93010

== ENCOUNTER 2021-02-08 22:24 | Emergency (ER) | payer MEDICARE, OTHER ==
[2021-02-09] MEDS ORDERED: LORazepam 2 MG/ML SDV IVPUSH ONE ×2 (00:15→01:22)
[2021-02-09] MEDS ORDERED: Sodium Chloride 0.9% 10 ML Syringe FLUSH PRN (00:15)
[2021-02-09] MEDS ORDERED: Sodium Chloride 0.9% 1,000 ML IV ONE (00:15)
[2021-02-09] MEDS ORDERED: Sodium Chloride 0.9% 2.5 ML Syringe FLUSH PRN (00:15)
--- NOTE | 2021-02-09 00:18 | EDM.PDOC ---
ED HPI GENERAL MEDICAL PROBLEM - General Chief Complaint: General Stated Complaint: NAUSEA, SWEATS, RESTLESSNESS Time Seen by Provider: 02/08/21 23:47 Source of Information: Reports: Patient, Family - History of Present Illness INITIAL COMMENTS - FREE TEXT/NARRATIVE: History of present illness: 70-year-old male presenting with nausea, anxiousness, restlessness and feels like he needs IV fluids. He reports he has had this multiple times in the past. Previously it had been thought to be due to serotonin syndrome, however he is off all those medications for the last 3 months. This returned this morning and he feels it has been ongoing all day. He did check his blood pressure at home and it was 167/100 and they were concerned. On arrival here it was within normal limits. He is extremely restless and rolling back and forth on the stretcher though denies pain currently. He reports "just give me some Ativan and fluids" as that has previously resolved the symptoms. Review of systems: As per history of present illness and below otherwise all systems reviewed and negative. Past medical history: As per history of present illness and as reviewed below otherwise noncontributory. Hypertension Surgical history: As per history of present illness and as reviewed below otherwise noncontributory. Social history: No reported history of drug or alcohol abuse. Smoker Family history: As per history of present illness and as reviewed below otherwise noncontributory. Physical exam: GEN: no acute distress, well appearing HEENT: Atraumatic, normocephalic, mucous membranes moist, Neck: supple, nontender, trachea midline. Lungs: No respiratory distress. Heart: RRR Abdomen: Soft, nondistended, nontender. Back: Full range of motion Extremities: Atraumatic. Neurovascularly intact. Neuro: Awake, alert, oriented. Neuro Exam nonfocal. Appears restless, moving all around on the bed. No involuntary or tonic-clonic movements. No myoclonus. Psych: Appears anxious, moving all around on the bed. Skin: warm, dry, no lesions Diagnostics: Labs Therapeutics: Fluids and Ativan MDM: Impression: [] Plan: [] Definitive disposition and diagnosis as appropriate pending reevaluation and review of above. general Pain Score (Numeric/FACES): 3 - Related Data Allergies Allergy/AdvReac Type Severity Reaction Status Date / Time metoclopramide [From Reglan] Allergy Severe Other Verified 02/09/21 00:36 sertraline [From Zoloft] Allergy Severe Other Verified 02/09/21 00:36 trazodone Allergy Severe Other Verified 02/09/21 00:36 morphine Allergy Other Verified 02/09/21 00:56 Home Meds: Home Meds Mirtazapine 45 mg PO DAILY 02/09/21 [History] Past Medical History HEENT History: Reports: Impaired Vision Other HEENT History: wears glasses, has upper denture and lower removable partial Cardiovascular History: Reports: Hypertension Other Cardiovascular History: pericarditis Respiratory History: Reports: COPD, Intubation, Previous Gastrointestinal History: Reports: None Genitourinary History: Reports: Retention, Urinary Musculoskeletal History: Reports: Arthritis, Back Pain, Chronic, Osteoarthritis, Other (See Below) Other Musculoskeletal History: shoulder injections Neurological History: Reports: Neuropathy, Peripheral Other Neuro History: bacterial meningitis '01 with multiple organ failure (sepsis) Psychiatric History: Reports: Anxiety, Depression, PTSD Endocrine/Metabolic History: Reports: None Hematologic History: Reports: Anemia, Blood Transfusion(s) Immunologic History: Reports: None Oncologic (Cancer) History: Reports: None Dermatologic History: Reports: None - Infectious Disease History Infectious Disease History: Reports: Chicken Pox, Measles, Mumps, Shingles Other Infectious Disease History: meningococal septicemia - Past Surgical History Head Surgeries/Procedures: Reports: None HEENT Surgical History: Reports: None Other Cardiovascular Surgeries/Procedures: 2001, Pericardial Window Respiratory Surgical History: Reports: Other (See Below) Other Respiratory Surgeries/Procedures: previous chest tube Male Surgical History: Reports: None Musculoskeletal Surgical History: Reports: Amputation Other Musculoskeletal Surgeries/Procedures:: 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 No interactions found. Last Recorded V/S: Last Vital Signs Temp 97.7 F 02/08/21 23:32 Pulse 72 02/09/21 03:17 Resp 14 02/09/21 03:17 BP 160/88 H 02/09/21 03:17 Pulse Ox 95 02/09/21 03:17 - Orders/Labs/Meds Orders: Active Orders 24 hr Category Date Time Status Saline Lock Insert [OM.PC] Stat Oth 02/09/21 00:15 Ordered Labs: Laboratory Tests 02/08/21 02/08/21 Range/Units 23:48 23:48 WBC 9.47 (4.0-11.0) K/uL RBC 4.41 L (4.50-5.90) M/uL Hgb 14.1 (13.0-17.0) g/dL Hct 38.8 (38.0-50.0) % MCV 88.0 (80.0-98.0) fL MCH 32.0 (27.0-32.0) pg MCHC 36.3 (31.0-37.0) g/dL RDW Std Deviation 44.9 (28.0-62.0) fl RDW Coeff of Mao 14 (11.0-15.0) % Plt Count 316 (150-400) K/uL MPV 9.50 (7.40-12.00) fL Neut % (Auto) 74.2 (48.0-80.0) % Lymph % (Auto) 19.0 (16.0-40.0) % [place] % (Auto) 6.5 (0.0-15.0) % Eos % (Auto) 0.0 (0.0-7.0) % Baso % (Auto) 0.3 (0.0-1.5) % Neut # (Auto) 7.0 H (1.4-5.7) K/uL Lymph # (Auto) 1.8 (0.6-2.4) K/uL [place] # (Auto) 0.6 (0.0-0.8) K/uL Eos # (Auto) 0.0 (0.0-0.7) K/uL Baso # (Auto) 0.0 (0.0-0.1) K/uL Nucleated RBC % 0.0 /100WBC Nucleated RBCs # 0 K/uL Sodium 134 L (136-148) mmol/L Potassium 4.1 (3.5-5.1) mmol/L Chloride 101 (98-107) mmol/L Carbon Dioxide 21.1 (21.0-32.0) mmol/L BUN 17 (7.0-18.0) mg/dL Creatinine 1.1 (0.8-1.3) mg/dL Est Cr Clr Drug Dosing 47.42 mL/min Estimated GFR (MDRD) > 60.0 ml/min Glucose 131 H (74-106) mg/dL Calcium 8.9 (8.5-10.1) mg/dL Total Bilirubin 0.7 (0.2-1.0) mg/dL AST 25 (15-37) IU/L ALT 25 (14-63) IU/L Alkaline Phosphatase 93 (46-116) U/L Total Protein 7.7 (6.4-8.2) g/dL Albumin 4.2 (3.4-5.0) g/dL Globulin 3.5 (2.6-4.0) g/dL Albumin/Globulin Ratio 1.2 (0.9-1.6) Meds: Medications Discontinued Medications Generic Name Dose Route Start Last Admin Trade Name Freq PRN Reason Stop Dose Admin Sodium Chloride 1,000 mls @ 999 mls/hr 02/09/21 00:15 02/09/21 00:26 Normal Saline IV 02/09/21 01:15 999 mls/hr .Bolus ONE Administration Lorazepam 1 mg 02/09/21 00:15 02/09/21 00:24 Lorazepam 2 Mg/Ml Sdv IVPUSH 02/09/21 00:16 1 mg ONETIME ONE Administration Lorazepam 0.5 mg 02/09/21 01:22 02/09/21 01:28 Lorazepam 2 Mg/Ml Sdv IVPUSH 02/09/21 01:23 0.5 mg ONETIME ONE Administration Lorazepam Confirm 02/09/21 01:24 02/09/21 01:33 Lorazepam 2 Mg/Ml Sdv Administered 02/09/21 01:25 Not Given Dose 2 mg .ROUTE .STK-MED ONE Sodium Chloride 10 ml 02/09/21 00:15 Sodium Chloride 0.9% 10 Ml Syringe FLUSH ASDIRECTED PRN Keep Vein Open Sodium Chloride 2.5 ml 02/09/21 00:15 Sodium Chloride 0.9% 2.5 Ml Syringe FLUSH ASDIRECTED PRN Keep Vein Open - Re-Assessments/Exams Free Text/Narrative Re-Assessment/Exam: 02/09/21 01:15 I reassessed the patient. He reports he is feeling better but feels somewhat anxious. He does still feel restless as well. He requested additional dose of Ativan. He is fully alert with no signs of any mental suppression. Therefore will give additional 0.5 mg of Ativan. I did discuss plan for discharge after that if feeling improved and will need to follow-up with his primary care physician. He did report that today he increased his mirtazapine dose but has not been taking any other medications that could account for his symptoms. I discussed with him that I suspect that this may be medication related and that he should go back down on his mirtazapine. As well as following up with his primary care physician and his mental health practitioner, and discussing his symptoms today with both of them. He agrees to do so. 02/09/21 02:25 Patient reassessed. Sleeping comfortably and in no acute distress. He is able to awaken easily and is not oversedated. will bring him home. Departure - Departure Time of Disposition: 02:35 Disposition: Home, Self-Care 01 Clinical Impression: Restless leg, Nausea, Dehydration, Anxiety - Discharge Information Instructions: Nausea and Vomiting, Adult, [id number], Dehydration, Adult, [id number], Restless Legs Syndrome, Supporting Someone With Anxiety, Managing Anxiety, Adult, Rehydration, Elderly Referrals: Star Jacob MD [Primary Care Provider] - 1 Day Forms: ED Department Discharge Additional Instructions: Please call your primary care physician tomorrow for a recheck. Also please tell your mental health practitioner about the symptoms that you had today. Please go back down to the prior dosing of the mirtazapine before your symptoms started. Please discuss changing your medications with your mental health practitioner. Return to the ER if you develop any dehydration or difficulty keeping down fluids or any other concerning symptoms. The following information is given to patients seen in the emergency department who are being discharged to home. This information is to outline your options for follow-up care. We provide all patients seen in our emergency department with a follow-up referral. The need for follow-up, as well as the timing and circumstances, are variable depending upon the specifics of your emergency department visit. If you don't have a primary care physician on staff, we will provide you with a referral. We always advise you to contact your personal physician following an emergency department visit to inform them of the circumstance of the visit and for follow-up with them and/or the need for any referrals to a consulting specialist. The emergency department will also refer you to a specialist when appropriate. This referral assures that you have the opportunity for follow-up care with a specialist. All of these measure are taken in an effort to provide you with o ptimal care, which includes your follow-up. Under all circumstances we always encourage you to contact your private physician who remains a resource for coordinating your care. When calling for follow-up care, please make the office aware that this follow-up is from your recent emergency room visit. If for any reason you are refused follow-up, please contact the [facility] Emergency Department at and asked to speak to the emergency department charge nurse. Sepsis Event Note (ED) - Evaluation Sepsis Screening Result: No Definite Risk - Focused Exam Vital Signs: Vital Signs Temp Pulse Resp BP Pulse Ox 02/09/21 03:17 72 14 160/88 H 95 02/08/21 23:32 97.7 F 67 18 118/73 99 - My Orders Last 24 Hours: My Active Orders 02/09/21 00:15 Saline Lock Insert [OM.PC] Stat - Assessment/Plan Last 24 Hours: My Active Orders 02/09/21 00:15 Saline Lock Insert [OM.PC] Stat
[2021-02-09 00:32] LABS: BLOOD UREA NITROGEN,BUN 17 mg/dL (7.0-18.0); CARBON DIOXIDE,CO2 21.1 mmol/L (21.0-32.0); CHLORIDE,CL 101 mmol/L (98-107); GLUCOSE RANDOM 131 mg/dL (74-106); POTASSIUM,K 4.1 mmol/L (3.5-5.1); SODIUM,NA 134 mmol/L (136-148)
[2021-02-09] MEDS ORDERED: LORazepam 2 MG/ML SDV ONE (01:24)
[2021-02-09 03:18] VITALS: BP 160/88; PULSE 72
== END 2021-02-09 03:17 | disposition home or self-care (01) ==
LOC: MW.ED 22:24
DX: E86.0 Dehydration (principal); F41.9 Anxiety disorder, unspecified; R11.0 Nausea; G25.81 Restless legs syndrome; I10 Essential (primary) hypertension; J44.9 Chronic obstructive pulmonary disease, unspecified; Z88.8 Allergy status to other drugs, medicaments and biological substances; Z88.5 Allergy status to narcotic agent; Z79.899 Other long term (current) drug therapy
CPT/HCPCS: 36415; 80053; 85025; 96374; 96376; 99283; J2060; J7030

== ENCOUNTER 2025-06-08 15:45 | Emergency (ER) | payer MEDICARE, OTHER ==
[2025-06-08] MEDS ORDERED: Sodium Chloride 0.9% 10 ML Syringe FLUSH PRN (17:58)
[2025-06-08] MEDS ORDERED: Sodium Chloride 0.9% 2.5 ML Syringe FLUSH PRN (17:58)
[2025-06-08 18:03] LABS: BASOPHILS ABSOLUTE AUTO 0.03 K/uL (0.00-0.20); BASOPHILS PERCENT AUTO 0.3 % (0.0-1.0); EOSINOPHILS ABSOLUTE AUTO 0.02 K/uL (0.00-0.45); EOSINOPHILS PERCENT AUTO 0.2 % (0.0-6.0); IMMATURE GRAN ABSOLUTE AUTO 0.02 K/uL (0.00-0.05); IMMATURE GRAN PERCENT AUTO 0.2 % (0.0-0.4); LYMPHOCYTES ABSOLUTE AUTO 1.53 K/uL (1.00-4.80); LYMPHOCYTES PERCENT AUTO 14.6 % (24.0-44.0); MEAN PLATELET VOLUME 9.6 fL (9.4-12.4); MONOCYTES ABSOLUTE AUTO 0.66 K/uL (0.00-0.80); MONOCYTES PERCENT AUTO 6.3 % (0.0-8.0); NEUTROPHILS ABSOLUTE AUTO 8.20 K/uL (1.80-7.70); NEUTROPHILS PERCENT AUTO 78.4 % (41.0-71.0); NRBC ABSOLUTE 0.00 K/uL (0.00-0.02); NRBC PERCENT 0.0 /100WBC (0.0-0.2); PLATELET COUNT,PLT 359 K/uL (150-400); RED BLOOD CELL COUNT 4.89 M/uL (4.52-5.90); WHITE BLOOD CELL COUNT,WBC 10.46 K/uL (3.9-11.3)
[2025-06-08 18:04] LABS: GLUCOSE,URINE NEGATIVE (NEGATIVE); OCCULT BLOOD,URINE TRACE-INTACT (NEGATIVE)
[2025-06-08 18:06] LABS: APPEARANCE,URINE HAZY
[2025-06-08 18:13] LABS: AMPHETAMINES SCREEN, URINE NEGATIVE (CUTOFF=500); BUPRENORPHINE SCREEN,URINE NEGATIVE (CUTOFF=10); METHADONE SCREEN, URINE NEGATIVE (CUTOFF=200); METHAMPHETAMINES SCREEN, URINE NEGATIVE (CUTOFF=500); OXYCODONE SCREEN,URINE NEGATIVE (CUT0FF=100); PCP SCREEN,URINE NEGATIVE (CUTOFF=25); THC SCREEN,URINE 20 NG/ML PRESUMPTIVE POSITIVE (CUTOFF=50)
[2025-06-08 18:26] LABS: A/G RATIO 0.9 (0.9-1.6); ALANINE AMINOTRANSFERASE,ALT 29.0 IU/L (14-63); ASPARTATE AMNIOTRANSFERASE,AST 36.0 IU/L (15-37); BILIRUBIN TOTAL 0.8 mg/dL (0.2-1.0); BLOOD UREA NITROGEN,BUN 24.0 mg/dL (7.0-18.0); CARBON DIOXIDE,CO2 26.2 mmol/L (21.0-32.0); CHLORIDE,CL 92.0 mmol/L (98-107); CREATININE 1.2 mg/dL (0.8-1.3); EST CRCL DRUG DOSING (CG) 44.86 mL/min; GLUCOSE RANDOM 126.0 mg/dL (74-106); POTASSIUM,K 3.3 mmol/L (3.5-5.1); PROTEIN TOTAL,TP 8.6 g/dL (6.4-8.2); SODIUM,NA 130.0 mmol/L (136-148); TSH ULTRASENSITIVE 0.54 uIU/mL (0.36-3.74)
[2025-06-08] MEDS: Ondansetron 4 MG/2 ML SDV IVPUSH ONE (18:26)
[2025-06-08] MEDS: LORazepam 2 MG/ML SDV IVPUSH ONE (18:26)
[2025-06-08 18:32] LABS: ESTIMATED GFR 64.0 mL/min (>60)
[2025-06-08] MEDS: Iopamidol 755 MG/ML 500 ML Multipack Bottle IVPUSH STA (18:51)
[2025-06-08 20:32] VITALS: BP 179/93; PULSE 62
== END 2025-06-08 20:30 | disposition home or self-care (01) ==
LOC: MW.ED 15:45
DX: R11.16 Cannabis hyperemesis syndrome (principal); R10.84 Generalized abdominal pain; F17.200 Nicotine dependence, unspecified, uncomplicated; I10 Essential (primary) hypertension; J44.9 Chronic obstructive pulmonary disease, unspecified; E78.5 Hyperlipidemia, unspecified; Z79.899 Other long term (current) drug therapy; Z88.5 Allergy status to narcotic agent; Z88.8 Allergy status to other drugs, medicaments and biological substances
CPT/HCPCS: 36415; 74177; 74177-26; 80053; 80305; 81001; 83690; 84443; 84484; 85025; 93005; 96361; 96374; 96375; 99284-25; J2060; J2405; J2765; J7030; Q9967